=== PATIENT | male | born 1930 | race Caucasian/White ===

== ENCOUNTER 2017-08-03 13:12 | Inpatient (IN) | payer OTHER, MEDICARE ==
[~2017-08-03] VITALS: Ht 188 cm; Wt 82.1 kg
[2017-08-03] VITALS (12 sets, daily range): BP systolic 70–114; BP diastolic 45–79; PULSE 84–124; TEMP 37.4–39.3; O2SAT 79–96; Ht 188 cm; Wt 82.1 kg
[~2017-08-03 13:12] MED LIST: CYAN10005 PO; FNTTP50 TD; FOLI800T PO; FRCT/ PO; FRS/40 PO; LVNIS120 SQ; MULT-190 PO; OXYC-88 PO; PRED-301 PO; VALA1TAB PO; WARF5TAB7 PO
--- NOTE | 2017-08-03 13:53 | EMERGENCY ROOM VISIT NOTE ---
History Report prepared by Ana: Marce Singh Under the Supervision of: Dr. Aneesh Pugh M.D. First contact with patient: 13:35 Chief Complaint: LETHARGIC Stated Complaint: LETHARGIC, WEAKNESS Nursing Triage Summary: pt reports chest pain started last night denies any n/v radiates to right arm up to back of neck. confusion History of Present Illness The patient is a 86 year old male with a past medical history of atrial fibrillation, CHF, CLL, DVT, dyslipidemia, hemolytic anemia, PE, and systolic dysfunction who presents to the ED with a cc of severe left sided chest pain beginning 4-6 weeks ago, noting it worsened today. Positive shortness of breath and history of blood clots. Negative history of heart attacks. The patient states that his pain does not radiate to other parts of his body. He notes the pain worsens with movement. The patient's states that he takes half a beta abel and water pills daily. Source of History: patient, family (patient's ) Onset: 4-6 weeks Position: chest (left) Symptom Intensity: severe Quality: other (chest pain) Timing: worsening Modifying Factors (Worsening): movement Associated Symptoms: + SOB Review of Systems See HPI for pertinent positives and negatives. A total of ten systems were reviewed and were otherwise negative. Past Medical & Surgical Medical Problems: (1) Atrial fibrillation (2) CHF due to valvular disease (3) CLL (chronic lymphocytic leukemia) (4) Cor pulmonale (5) DVT (deep venous thrombosis) (6) Dyslipidemia (7) Hemolytic anemia (8) Post herpetic neuralgia (9) Pulmonary embolism (10) Systolic dysfunction Surgical Problems: (1) H/O splenectomy (2) History of cholecystectomy (3) History of dental surgery Family History FHx: leukemia Social History Smoking Status: Never Smoker Marital Status: Housing Status: lives with family Occupation Status: retired Current/Historical Medications Scheduled Cholecalciferol (Vitamin D 400 Iu), 400 INTER.UNIT PO DAILY Cyanocobalamin (Vitamin B-12), 1,000 MCG PO DAILY Fentanyl (Duragesic), 50 MCG TD [id number] Fish Oil ([place]-3), 1 CAP PO DAILY Fluticasone Propionate (Nasal) (Flonase Allergy Relief), 2 SPRAYS NA DAILY Folic Acid (Folic Acid), 1 TAB PO DAILY Gabapentin (Neurontin), 100 MG PO TID Lidocaine (Lidoderm Patch 5%), 1 PATCH TOP DAILY Lisinopril (Zestril), 2.5 MG PO DAILY Metolazone (Zaroxolyn), 2.5 MG PO PRN Metoprolol Succinate (Toprol Xl), 12.5 MG PO DAILY Ocuvite Preservision (Ocuvite Preservision), 1 TAB PO DAILY Oseltamivir (Tamiflu), 75 MG PO BID Prednisone (Prednisone), 5 MG PO DAILY Spironolactone (Aldactone), 12.5 MG PO DAILY Torsemide (Demadex), 40 MG PO BID Valacyclovir Hcl (Valtrex), 500 MG PO DAILY Warfarin Sod (Jantoven), 2.5 MG PO DAILY Scheduled PRN Acetamin/Butalbital/Caffeine (Fioricet), 1-2 TAB PO Q4H PRN for Pain Capsaicin (Capzasin), for Itching Chlorzoxazone (Parafon Forte Dsc), 500 MG PO TID PRN for Muscle Spasms Oxycodone/Acetaminophen 10MG/325MG (Oxycodone/Acetaminophen 10MG/325MG), 2 TAB PO Q6H PRN for Pain Triamcinolone Acet (Triamcinolone Acetonide), 1 APPLN TOP BID PRN for Affected Skin Folds Allergies Coded Allergies: No Known Allergies (Unverified , 08/03/17) Physical Exam Vital Signs Date Time Temp Pulse Resp B/P (MAP) Pulse Ox O2 Delivery O2 Flow Rate FiO2 08/03/17 15:11 102 22 110/65 98 Room Air 08/03/17 14:40 101 22 118/65 100 Nasal Cannula 2.0 08/03/17 14:20 109 20 121/79 90 Room Air 08/03/17 13:41 111 08/03/17 13:27 36.4 139 20 127/69 95 Room Air Physical Exam GENERAL: Awake, alert, uncomfortable-appearing, NAD HENT: Normocephalic, atraumatic. EYES: Normal conjunctiva. Sclera non-icteric. NECK: Supple. No nuchal rigidity. FROM. RESPIRATORY: CTAB, no rhonchi, wheezing, crackles CARDIAC: Tachycardic rate, irregularly irregular rhythm, no MRG ABDOMEN: Soft, NTND, BS+ MSK: No chest wall TTP, no LE edema NEURO: GCS 15, CN 2-12 intact, moves all 4s on command SKIN: No rash or jaundice noted. Medical Decision & Procedures ER Provider Diagnostic Interpretation: Radiology results as stated below per my review and radiologist interpretation: CHEST ONE VIEW PORTABLE CLINICAL HISTORY: weakness dyspnea COMPARISON STUDY: 09/26/2015 FINDINGS: Slightly progressive cardiomegaly compared to the prior exam. Increase in prominence of pulmonary vasculature. Baseline chronic interstitial prominence. No focal infiltrative change. Old fracture right proximal humerus unchanged from the prior exam. IMPRESSION: Moderate cardiomegaly with findings of early congestive failure. This is superimposed upon chronic changes described above. The above report was generated using voice recognition software. It may contain grammatical, syntax or spelling errors. Electronically signed by: Tavon Menard M.D. 08/03/2017 1:59 PM Dictated Date/Time: 08/03/2017 1:57 PM Laboratory Results Test 08/03/17 13:45 08/03/17 14:16 Immature Granulocyte % (Auto) 0.7 % White Blood Count 19.24 K/uL (4.8-10.8) Red Blood Count 3.90 M/uL (4.7-6.1) Hemoglobin 12.3 g/dL (14.0-18.0) Hematocrit 39.3 % (42-52) Mean Corpuscular Volume 100.8 fL (80-100) Mean Corpuscular Hemoglobin 31.5 pg (25-34) Mean Corpuscular Hemoglobin Concent 31.3 g/dl (32-36) Platelet Count 338 K/uL (130-400) Mean Platelet Volume 9.3 fL (7.4-10.4) Neutrophils (%) (Auto) 66.7 % Lymphocytes (%) (Auto) 25.4 % Monocytes (%) (Auto) 6.9 % Eosinophils (%) (Auto) 0.0 % Basophils (%) (Auto) 0.3 % Neutrophils # (Auto) 12.85 K/uL (1.4-6.5) Lymphocytes # (Auto) 4.89 K/uL (1.2-3.4) Monocytes # (Auto) 1.32 K/uL (0.11-0.59) Eosinophils # (Auto) 0.00 K/uL (0-0.5) Basophils # (Auto) 0.05 K/uL (0-0.2) Immature Granulocyte # (Auto) 0.13 K/uL (0.00-0.02) Phosphorus Level 4.0 mg/dl (2.5-4.9) Total Bilirubin 1.3 mg/dl (0.2-1) Aspartate Amino Transf (AST/SGOT) 25 U/L (15-37) Alanine Aminotransferase (ALT/SGPT) 22 U/L (12-78) Alkaline Phosphatase 86 U/L (45-117) Total Creatine Kinase 41 U/L (39-308) Pro-B-Type Natriuretic Peptide 6773 pg/ml (0-1800) Total Protein 7.1 gm/dl (6.4-8.2) Albumin 4.2 gm/dl (3.4-5.0) Globulin 2.9 gm/dl (2.5-4.0) Albumin/Globulin Ratio 1.4 (0.9-2) Thyroid Stimulating Hormone (TSH) 0.964 uIu/ml (0.300-4.500) Bedside Troponin I 0.100 ng/ml (0-0.045) Date/Time Source Procedure Growth Status 08/03/17 00:00 Nasal MRSA DNA Surveillance Screen - Final Specimen Negative for MRSA by DNA Probe Complete Laboratory results reviewed by me Medications Administered Medications (Trade) Dose Ordered Sig/Pb Route Start Time Stop Time Status Last Admin Dose Admin Aspirin (Aspirin Chew) 324 mg NOW STAT PO 08/03/17 13:55 08/03/17 13:57 DC 08/03/17 14:14 324 MG Fentanyl Citrate (Fentanyl Inj) 50 mcg NOW ONCE IV 08/03/17 14:00 08/03/17 14:01 DC 08/03/17 14:15 50 MCG Nitroglycerin (Nitrostat Tab) 0.4 mg PRN PRN SL 08/03/17 14:00 08/03/17 16:43 DC 08/03/17 15:10 0.4 MG ECG Indication: chest pain (left) Rate (beats per minute): 102 Rhythm: atrial fibrillation (with RVR) Findings: other (normal QRS and QTC, elevation in AVR and V1, difused latera and high lateral depressions) ED Course 1346: The patient was evaluated in room C9. A complete history and physical exam was performed. 1356: Discussed the patient's case with Dr. Estrella [facility] [place], who suggested there is no need for immediate heart alert, just need to make the patient pain free. 1455: Discussed the patient's case with Cynthia Douglas. The patient will be evaluated for further treatment and disposition. Medical Decision The patient is a 86 year old male with a past medical history of atrial fibrillation, CHF, CLL, DVT, dyslipidemia, hemolytic anemia, PE, and systolic dysfunction who presents to the ED with a cc of severe left sided chest pain beginning 4-6 weeks ago, noting it worsened today. Differential diagnosis: Etiologies such as cardiac ischemia, aortic dissection, pulmonary embolism, pneumonia, pneumothorax, musculoskeletal, infections, pericarditis, myocarditis , esophageal rupture, gastrointestinal, as well as others were entertained. Patient was seen and evaluated the bedside. Patient does have a complicated cardiac history. Patient has had noted worsening left-sided chest pain for 6 weeks. It is worse with exertion. Patient does have some associated shortness of breath. Patient is a poor historian and unable to provide a lot of descriptive features. Patient's EKG was concerning as he does have elevations in aVR as well as V1 along with lateral ST depressions. Upon seeing the patient 's EKG and his concerning chest pain story, he was not made a heart alert but I did talk to the coiler immediately who then reviewed the EKG and came to see the patient. Furthermore, the coiler Dr. Estrella did speak with general cardiology Dr. Diaz who also came to evaluate the patient. Had been decided that given the patient's complex medical problems he may not be suitable candidate for catheterization at this time; however, ACS protocol was initiated. Patient was given full dose aspirin as well as some fentanyl and nitroglycerin. Heparin was ordered along w/ statin. This only helped mildly with some of his pain. A repeat EKG did show maybe mild improvement of his ST segment changes. Of note patient did have mild leukocytosis C does have a history of CLL. Patient does have an elevated troponin and does have some noted CK D. Given the patient's complex medical history and after discussion with cardiology and interventional cardiology I did discuss the patient with both the hospitalist and copy manager. The copy manager did come see the patient the patient was admitted to the ICU. Medication Reconcilliation Current Medication List: was personally reviewed by me Blood Pressure Screening Patient's blood pressure: Low blood pressure Blood pressure disposition: Referred to PCP (hospitalist) Consults Time Called: 1356 Consulting Physician: PENNY Juarez Returned Call: 1356 Discussed the patient's case with PENNY Juarez, who suggested there is no need for immediate heart alert, just need to make the patient pain free. Additional Consults: Time Called: 2000 Consulted Physician: Cynthia Douglas Returned Call: [phone] Additional Comments: Discussed the patient's case with Cynthia Douglas. The patient will be evaluated for further treatment and disposition. Impression Primary Impression: Myocardial infarction Additional Impressions: Non-STEMI (non-ST elevated myocardial infarction) Anemia Leukocytosis, unspecified CKD (chronic kidney disease) Critical Care I have personally spent greater than 40 minutes of critical care time in the direct management of this patient. This includes bedside care, interpretation of diagnostic studies, and testing, discussion with consultants, patient, and family members, and other required patient management activities. This 40 minutes is in excess of all separately billable procedures. Scribe Attestation The scribe's documentation has been prepared under my direction and personally reviewed by me in its entirety. I confirm that the note above accurately reflects all work, treatment, procedures, and medical decision making performed by me. Departure Information Dispostion Being Evaluated By Hospitalist Referrals Gunnar Polanco D.O. (PCP) Forms HOME CARE DOCUMENTATION FORM, IMPORTANT VISIT INFORMATION, WORK / SCHOOL INSTRUCTIONS Patient Instructions My [facility] Problem Qualifiers Primary Impression: Myocardial infarction Myocardial infarction ST status: non-ST elevation myocardial infarction Qualified Codes: I21.4 - Non-ST elevation (NSTEMI) myocardial infarction Additional Impressions: Anemia Anemia type: unspecified type Qualified Codes: D64.9 - Anemia, unspecified CKD (chronic kidney disease) Chronic kidney disease stage: unspecified stage Qualified Codes: N18.9 - Chronic kidney disease, unspecified
[2017-08-03] MEDS ORDERED: ASPIRIN 324 MG CHEW PO STA (13:55)
[2017-08-03] MEDS ORDERED: FENTANYL CITRATE INJ 50 MCG/1 ML 2 ML VIAL IV ONE (14:00)
--- NOTE | 2017-08-03 14:00 | DIAGNOSTIC IMAGING REPORT ---
CHEST ONE VIEW PORTABLE CLINICAL HISTORY: weakness dyspnea COMPARISON STUDY: 09/26/2015 FINDINGS: Slightly progressive cardiomegaly compared to the prior exam. Increase in prominence of pulmonary vasculature. Baseline chronic interstitial prominence. No focal infiltrative change. Old fracture right proximal humerus unchanged from the prior exam. IMPRESSION: Moderate cardiomegaly with findings of early congestive failure. This is superimposed upon chronic changes described above. The above report was generated using voice recognition software. It may contain grammatical, syntax or spelling errors. Electronically signed by: Tavon Menard M.D. 08/03/2017 1:59 PM Dictated Date/Time: 08/03/2017 1:57 PM
[2017-08-03 14:03] LABS: BASO % 0.3 %; BASO ABS # 0.05 K/uL (0-0.2); HEMATOCRIT 39.3 % (42-52); HEMOGLOBIN 12.3 g/dL (14.0-18.0); IG# 0.13 K/uL (0.00-0.02); LYMPH % 25.4 %; LYMPH ABS # 4.89 K/uL (1.2-3.4); MEAN CELL VOLUME 100.8 fL (80-100); MEAN CORPUSCULAR HEMOGLOBIN 31.5 pg (25-34); MEAN CORPUSCULAR HGB CONC 31.3 g/dl (32-36); MEAN PLATELET VOLUME 9.3 fL (7.4-10.4); MONO % 6.9 %; MONO ABS # 1.32 K/uL (0.11-0.59); NEUT % 66.7 %; NEUT ABS # 12.85 K/uL (1.4-6.5); PLATELET COUNT 338 K/uL (130-400); RED CELL DISTRIBUTION WIDTH CV 16.3 % (11.5-14.5); RED CELL DISTRIBUTION WIDTH SD 59.3 fL (36.4-46.3); WHITE BLOOD COUNT 19.24 K/uL (4.8-10.8)
[2017-08-03] MEDS ORDERED: METO2.5T PO (14:10)
[2017-08-03] MEDS ORDERED: VALA1TAB31 PO (14:10)
[2017-08-03] MEDS ORDERED: [UNRECOGNIZED DRUG - CODE] (14:10)
[2017-08-03] MEDS ORDERED: LISI-729 PO (14:10)
[2017-08-03] MEDS ORDERED: TORS20TA2 PO (14:10)
[2017-08-03] MEDS ORDERED: OMEG10007 PO (14:10)
[2017-08-03] MEDS ORDERED: SPIR25TA PO (14:10)
[2017-08-03] MEDS ORDERED: METO25TA3 PO (14:10)
[2017-08-03] MEDS ORDERED: GABA-112 PO (14:10)
[2017-08-03] MEDS: NITROGLYCERIN 0.4 MG SL PER TAB CHARGE SL PRN ×2 (14:14→15:10)
[2017-08-03 14:22] LABS: ALBUMIN 4.2 gm/dl (3.4-5.0); CALCIUM 8.6 mg/dl (8.5-10.1); CREATININE 2.07 mg/dl (0.60-1.40); POTASSIUM 4.1 mmol/L (3.5-5.1)
[2017-08-03 14:32] LABS: CKMB 1.4 ng/ml (0.5-3.6); TOTAL PROTEIN 7.1 gm/dl (6.4-8.2)
[2017-08-03 15:11] LABS: INR 1.7 (0.9-1.1); PTT PATIENT 37.5 SECONDS (21.0-31.0)
[2017-08-03] MEDS ORDERED: ICU PROTOCOL FOR HYPERGLYCEMIA PRN (15:30)
[2017-08-03] MEDS ORDERED: ONDANSETRON INJ 2 MG/ML 2 ML VIAL IV PRN (15:30)
[2017-08-03] MEDS ORDERED: HEPARIN 25000 UNIT/500 ML D5W ONE (15:47)
[2017-08-03] MEDS ORDERED: OSEL75CA12 PO (15:59)
[2017-08-03] MEDS ORDERED: CHLO1TAB70 PO (15:59)
[2017-08-03] MEDS ORDERED: CHOL400C7 PO (15:59)
[2017-08-03] MEDS ORDERED: NF656 TOP (15:59)
[2017-08-03] MEDS ORDERED: TRMO115 TOP (15:59)
[2017-08-03] MEDS ORDERED: FLUT0.15 (15:59)
[2017-08-03] MEDS ORDERED: MoRPHine SULFATE 2 MG/ML CARP IV ONE (16:00)
[2017-08-03] MEDS ORDERED: MoRPHine SULFATE 2 MG/ML CARP ONE (16:09)
[2017-08-03] MEDS ORDERED: HEPARIN 25,000 UNIT/500ML D5W 500 ML IV PRN (16:15)
--- NOTE | 2017-08-03 16:22 | CARDIOLOGY CONSULTATION ---
DATE OF CONSULTATION: 08/03/2017 DATE OF CONSULTATION: 08/03/2017 REASON FOR CONSULTATION: Chest pain. HISTORY OF PRESENT ILLNESS: The patient is an elderly 86-year-old male patient who is usually followed by Dr. Gurdeep Benoit through our cardiology clinic. He has had a history of previous pulmonary emboli and is on chronic Coumadin therapy. He has a history of severe pulmonary hypertension and cor pulmonale. 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 He has chronic atrial fibrillation. In the past, his estimated left ventricular ejection fraction is 40-45%. The estimated left ventricular ejection fraction; however, does not tell the full story. This patient has had chronic biventricular heart failure, lethargy, and dyspnea. He is on a p.r.n. dose of Zaroxolyn due to fluid retention. Several days ago, he had increased lethargy and he was taken to his primary care physician's office where he was diagnosed as having influenza. He was started on Tamiflu. He has become progressively less responsive and according to his has had some rigors. She brought him to the Emergency Department where an EKG was obtained and shows an acute inferior posterior wall myocardial infarction. Interventional cardiology was contacted and due to the patient's age, history of dementia and multiple medical problems including chronic lymphocytic leukemia and his above cardiac disease, it was decided not to take him to the cardiac catheterization lab at this time. Instead, he will be admitted to the ICU and given supportive care and treatment as appropriate. ALLERGIES: HYDROMORPHONE. PAST MEDICAL HISTORY: As outlined above, he has severe cardiac disease with mixed valvular heart disease including severe aortic regurgitation, severe mitral regurgitation, and moderate tricuspid regurgitation. He has right heart failure on the basis of pulmonary hypertension with the last echocardiogram suggesting his pulmonary artery pressure to be 82 mmHg. His pulmonary hypertension is most likely on the basis of his mixed valvular heart disease and previous history of multiple pulmonary emboli. He has a history of paroxysmal atrial fibrillation which is now chronic. He has been on chronic anticoagulation with Coumadin. He has been treated by Dr. Hurtado for chronic lymphocytic leukemia. He also carries a diagnosis of chronic kidney disease and dementia. SOCIAL HISTORY: He lives with his . FAMILY MEDICAL HISTORY: Noncontributory. REVIEW OF SYSTEMS: A 10-point review of systems is negative except for the history of chief complaint. PHYSICAL EXAMINATION: GENERAL: The patient is lethargic and not easily aroused. VITAL SIGNS: Blood pressure is 120/80, pulse is irregular at 110 beats per minute. He is afebrile. HEAD, EYES, EARS, NOSE, AND THROAT: He is normocephalic. Pupils are equal and reactive to light. Extraocular muscles are intact bilaterally. NECK: The neck veins are distended. Carotids have good upstrokes bilaterally without bruits. Thyroid is nonpalpable. RESPIRATORY: Breath sounds are equal bilaterally. CARDIOVASCULAR: Heart has an irregular rhythm. There is a holosystolic murmur at the apex of the heart which varies with respiration. Second diastolic murmur is heard anteriorly. PMI is diffuse. ABDOMEN: Soft, nontender without organomegaly. EXTREMITIES: Free of edema, digit clubbing, or cyanosis. NEUROLOGIC: Grossly intact. SKIN: Warm to touch. LYMPH NODES: Negative to palpation. IMPRESSION: 1. Acute posterolateral wall myocardial infarction. 2. Possible influenza. 3. Severe mixed valvular heart disease. 4. Chronic cor pulmonale due to severe pulmonary hypertension. 5. History of multiple pulmonary emboli. 6. Chronic lymphocytic leukemia. 7. Dementia. RECOMMENDATIONS: I agree with the interventionalist regarding not taking this patient to the cardiac catheterization lab emergently. He is very sick with multiple medical problems that need to be stabilized before he would undergo an emergent intervention. I think he should be admitted to the ICU. He has been on Coumadin, which I would stop and place him on IV heparin without a bolus. Fluid management will be a challenge due to his underlying heart disease and cor pulmonale. His overall prognosis is poor.
[2017-08-03] MEDS ORDERED: FENTANYL 50 MCG/HR TDSY TD SCH (16:45)
[2017-08-03 17:01] LABS: INFLUENZA A PCR Neg for Influ A (NEG); INFLUENZA B PCR Neg for Influ B (NEG)
[2017-08-03] MEDS ORDERED: NURSING VERBAL MED ORDER ONE (17:15)
--- NOTE | 2017-08-03 17:19 | Critical Care Consultation ---
Critical Care Consultation Date of Consultation: Aug 03, 2017. Attending Physician: Karthik Gutierrez M.D. Reason for Consultation: Inferior wall CA, for medical management. History of Present Illness This is a 86 year old male with multiple medical conditions was brought in to ER. He has had a history of previous pulmonary emboli and is on chronic Coumadin therapy. He has a history of severe pulmonary hypertension and cor pulmonale. 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 He has chronic atrial fibrillation. In the past, his estimated left ventricular ejection fraction is 40-45%. The estimated left ventricular ejection fraction; however, does not tell the full story. This patient has had chronic biventricular heart failure, lethargy, and dyspnea. He is on a p.r.n. dose of Zaroxolyn due to fluid retention. Several days ago, he had increased lethargy and he was taken to his primary care physician's office where he was diagnosed as having influenza. He was started on Tamiflu. He has become progressively less responsive and according to his has had some rigors. She brought him to the Emergency Department where an EKG was obtained and shows an acute inferior posterior wall myocardial infarction. Interventional cardiology was contacted and due to the patient's age, history of dementia and multiple medical problems including chronic lymphocytic leukemia and his above cardiac disease, it was decided not to take him to the cardiac catheterization lab at this time. Instead, he will be admitted to the ICU and given supportive care and treatment as appropriate. Medical management. The patient mainly has been C/O his rt arm and shoulder pain which he and attribute to be related to shingles and has been going on for ablest 5years and he is on multiple pain management. The patient is also on 5 mg of oral prednisone for hemolytic anemia, chronically. Past Medical/Surgical History As outlined above, he has severe cardiac disease with mixed valvular heart disease including severe aortic regurgitation, severe mitral regurgitation, and moderate tricuspid regurgitation. He has right heart failure on the basis of pulmonary hypertension with the last echocardiogram suggesting his pulmonary artery pressure to be 82 mmHg. His pulmonary hypertension is most likely on the basis of his mixed valvular heart disease and previous history of multiple pulmonary emboli. He has a history of paroxysmal atrial fibrillation which is now chronic. He has been on chronic anticoagulation with Coumadin. He has been treated by Dr. Hurtado for chronic lymphocytic leukemia. He also carries a diagnosis of chronic kidney disease and dementia. Family History FHx: leukemia Social History Smoking Status: Never Smoker Alcohol Use: none Drug Use: none Marital Status: Housing Status: lives with family Occupation Status: retired Allergies Coded Allergies: No Known Allergies (Unverified , 08/03/17) Home Medications Scheduled Cholecalciferol (Vitamin D 400 Iu), 400 INTER.UNIT PO DAILY Cyanocobalamin (Vitamin B-12), 1,000 MCG PO DAILY Fentanyl (Duragesic), 50 MCG TD CQ72HR Fish Oil ([place]-3), 1 CAP PO DAILY Fluticasone Propionate (Nasal) (Flonase Allergy Relief), 2 SPRAYS NA DAILY Folic Acid (Folic Acid), 1 TAB PO DAILY Gabapentin (Neurontin), 100 MG PO TID Lidocaine (Lidoderm Patch 5%), 1 PATCH TOP DAILY Lisinopril (Zestril), 2.5 MG PO DAILY Metolazone (Zaroxolyn), 2.5 MG PO PRN Metoprolol Succinate (Toprol Xl), 12.5 MG PO DAILY Ocuvite Preservision (Ocuvite Preservision), 1 TAB PO DAILY Oseltamivir (Tamiflu), 75 MG PO BID Prednisone (Prednisone), 5 MG PO DAILY Spironolactone (Aldactone), 12.5 MG PO DAILY Torsemide (Demadex), 40 MG PO BID Valacyclovir Hcl (Valtrex), 500 MG PO DAILY Warfarin Sod (Jantoven), 2.5 MG PO DAILY Scheduled PRN Acetamin/Butalbital/Caffeine (Fioricet), 1-2 TAB PO Q4H PRN for Pain Capsaicin (Capzasin), for Itching Chlorzoxazone (Parafon Forte Dsc), 500 MG PO TID PRN for Muscle Spasms Oxycodone/Acetaminophen 10MG/325MG (Oxycodone/Acetaminophen 10MG/325MG), 2 TAB PO Q6H PRN for Pain Triamcinolone Acet (Triamcinolone Acetonide), 1 APPLN TOP BID PRN for Affected Skin Folds Current Inpatient Medications Current Inpatient Medications Medications (Trade) Dose Ordered Sig/Pb Route Start Time Stop Time Status Last Admin Dose Admin Nitroglycerin (Nitrostat Tab) 0.4 mg PRN PRN SL 12/27/17 14:00 09/02/17 13:59 08/03/17 15:10 0.4 MG Acetaminophen (Tylenol Tab) 650 mg Q4H PRN PO 08/03/17 15:30 09/02/17 15:29 Ondansetron HCl (Zofran Inj) 4 mg Q6H PRN IV 08/03/17 15:30 09/02/17 15:29 Miscellaneous Information (Icu Protocol For Hyperglycemia) 1 ea PRN PRN N/A 08/03/17 15:30 08/05/17 15:29 Heparin Sodium/ Dextrose 500 ml @ 29 mls/hr [id number] PRN IV 08/03/17 16:15 09/02/17 16:14 Pantoprazole Sodium 40 mg/ Syringe 10 ml @ 5 mls/min DAILY@11 IV 08/04/17 11:00 09/03/17 10:59 Review of Systems Constitutional: + fever, + weakness, + fatigue Respiratory: + cough, + shortness of breath, + dyspnea on exertion Cardiovascular: + chest pain (more on the rt side and rt shoulder and radiating to rt arm.) Musculoskeletal: + joint pain (rt shoulder), + muscle pain (rt arm pain.) Neurologic: + weakness Endocrine: + fatigue Physical Exam Date Time Temp Pulse Resp B/P (MAP) Pulse Ox O2 Delivery O2 Flow Rate FiO2 08/03/17 16:06 106 20 115/67 98 08/03/17 15:11 102 22 110/65 98 Room Air 08/03/17 14:40 101 22 118/65 100 Nasal Cannula 2.0 08/03/17 14:20 109 20 121/79 90 Room Air 08/03/17 13:41 111 08/03/17 13:27 36.4 139 20 127/69 95 Room Air General Appearance: uncomfortable, in pain, moderate distress Eyes: PERRLA, sclerae normal, conjunctivae normal ENT: normal nasal exam, normal mouth exam, normal throat exam Neck: normal range of motion, trachea midline, no stridor, supple, no lymphadenopathy Respiratory: breath sounds normal, rales (bilaterally more so at the bases.), rhonchi, wheezing (scattered.) Cardiovasular: systolic murmur, other (tachycardia.) Abdomen: non tender, normal bowel sounds, no masses Genitourinary - Male: other (not performed.) Back: normal inspection, normal range of motion, no muscle spasm Upper Extremities: no edema, no deformity, normal ROM Lower Extremities: normal ROM, edema (bilaterally 2 +) Edema: Bilateral LE (2+) Pulses: radial (R) (2+), radial (L) (2+) Neuro: alert, oriented x 3, normal motor exam, normal sensation Psychiatric: normal affect Laboratory Results Last 24 Hours Test 08/03/17 13:45 08/03/17 14:16 08/03/17 16:00 White Blood Count 19.24 K/uL Red Blood Count 3.90 M/uL Hemoglobin 12.3 g/dL Hematocrit 39.3 % Mean Corpuscular Volume 100.8 fL Mean Corpuscular Hemoglobin 31.5 pg Mean Corpuscular Hemoglobin Concent 31.3 g/dl Platelet Count 338 K/uL Mean Platelet Volume 9.3 fL Neutrophils (%) (Auto) 66.7 % Lymphocytes (%) (Auto) 25.4 % Monocytes (%) (Auto) 6.9 % Eosinophils (%) (Auto) 0.0 % Basophils (%) (Auto) 0.3 % Neutrophils # (Auto) 12.85 K/uL Lymphocytes # (Auto) 4.89 K/uL Monocytes # (Auto) 1.32 K/uL Eosinophils # (Auto) 0.00 K/uL Basophils # (Auto) 0.05 K/uL RDW Standard Deviation 59.3 fL RDW Coefficient of Variation 16.3 % Immature Granulocyte % (Auto) 0.7 % Immature Granulocyte # (Auto) 0.13 K/uL Prothrombin Time 17.4 SECONDS Prothromb Time International Ratio 1.7 Activated Partial Thromboplast Time 37.5 SECONDS Partial Thromboplastin Ratio 1.4 Sodium Level 134 mmol/L Potassium Level 4.1 mmol/L Chloride Level 95 mmol/L Carbon Dioxide Level 26 mmol/L Anion Gap 13.0 mmol/L Blood Urea Nitrogen 72 mg/dl Creatinine 2.07 mg/dl Est Creatinine Clear Calc Drug Dose 29.6 ml/min Estimated GFR () 32.6 Estimated GFR (Non- 28.2 BUN/Creatinine Ratio 34.6 Random Glucose 181 mg/dl Calcium Level 8.6 mg/dl Phosphorus Level 4.0 mg/dl Magnesium Level 2.5 mg/dl Total Bilirubin 1.3 mg/dl Aspartate Amino Transf (AST/SGOT) 25 U/L Alanine Aminotransferase (ALT/SGPT) 22 U/L Alkaline Phosphatase 86 U/L Total Creatine Kinase 41 U/L Creatine Kinase MB 1.4 ng/ml Creatine Kinase MB Ratio 3.4 Troponin I 0.116 ng/ml Pro-B-Type Natriuretic Peptide 6773 pg/ml Total Protein 7.1 gm/dl Albumin 4.2 gm/dl Globulin 2.9 gm/dl Albumin/Globulin Ratio 1.4 Thyroid Stimulating Hormone (TSH) 0.964 uIu/ml Bedside Troponin I 0.100 ng/ml Diagnostic Results CXR: FINDINGS: Slightly progressive cardiomegaly compared to the prior exam. Increase in prominence of pulmonary vasculature. Baseline chronic interstitial prominence. No focal infiltrative change. Old fracture right proximal humerus unchanged from the prior exam. IMPRESSION: Moderate cardiomegaly with findings of early congestive failure. This is superimposed upon chronic changes described above. Assessment & Plan 1. Acute posterolateral wall myocardial infarction. Cardiology and an interventional cardiology were consulted and both of them are in agreement not to have any intervention at this time and medical management with IV heparin/ Stop Coumadin. Also Diuretics as prescribed and beta abel and also aspirin. We will follow with the cardiology. 2. Possible influenza. the patient has been exposed to a patient with influenza. was on Tamiflu. Influenza test were done, still pending. 3. Severe mixed valvular heart disease. Currently he is under the care of the lunch truck operator. repeat ECHO will be done. 4. Chronic cor pulmonale due to severe pulmonary hypertension. The patient is not on any home O2. Currently he is on therapy including diuretice from the cardiology. Repeat ECHO is pending. 5. History of multiple pulmonary emboli. The patient has been on Coumadin, which was stopped and was started on IV Heparin. 6. Chronic lymphocytic leukemia. The patient and were told, currently is not on any therapy for that. 6. Chronic Hemolytic anemia. The patient has been on oral prednisone 5 mg daily and that will be resumed. 7. 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 The patient is on multiple pain medications which will be reviewed and treated accordingly. 8. Chronic Renal failure. The patient has worsening of his renal function, which could be also related to his current problems and may be dehydrated due to current illness. Fluids will be very difficult because of CHF/congestion. 7. Dementia. D/W family by the bed side and answered all the questions. The patient is full code. DVT prophylaxis and is on IV heparin. D/W other medical care provider. Spent greater than 55 minutes of critical care time.
--- NOTE | 2017-08-03 18:27 | History and Physical ---
History & Physical Date & Time of Service: Aug 03, 2017 ~ 15:00 Chief Complaint: Chest Pain, Altered Mental Status Primary Care Physician: Gunnar Polanco D.O. History of Present Illness 86 year old male who presents to the ED with chest pain and altered mental status. History is currently limited from patient so history is obtained from who is at the bedside. She reports that she has noticed a steady decline in her over the past couple of weeks. He has been more confused and more lethargic. Patient was seen in the PCPs office yesterday for evaluation of fever and confusion. It was suspected he had the flu so he was started on Tamiflu. His reports today that the lethargy was much worse and that he was also complaining of chest pain. No other symptoms are reported. 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 In the ED, patient's EKG is concerning for acute anterolateral MD. Patient was evaluated at the bedside by interventional cardiology who felt as though patient would not be a good candidate for a cardiac cath given his co-morbid conditions. Patient will be admitted to ICU for further management. Past Medical/Surgical History Medical Problems: (1) Atrial fibrillation Status: Chronic (2) CHF due to valvular disease Status: Chronic (3) CLL (chronic lymphocytic leukemia) Status: Chronic (4) Cor pulmonale Permanent Comment: echo 12/2016 - severe AR, severe MR, moderate TR, EF 40-45% Status: Chronic (5) DVT (deep venous thrombosis) Status: Chronic (6) Dyslipidemia Status: Chronic (7) Hemolytic anemia Status: Chronic (8) Post herpetic neuralgia Status: Chronic (9) Pulmonary embolism Status: Chronic (10) Systolic dysfunction Status: Chronic Surgical Problems: (1) H/O splenectomy Status: Chronic (2) History of cholecystectomy Status: Chronic (3) History of dental surgery Status: Chronic Family History non contributory due to patient's advanced age Social History Smoking Status: Former Smoker Alcohol Use: none Marital Status: Housing status: lives with family Immunizations History of Influenza Vaccine: Yes Influenza Vaccine Date: May 03, 2017 History of Tetanus Vaccine?: Yes Tetanus Immunization Date: Jun 02, 2012 History of Pneumococcal: Yes Pneumococcal Date: December 31, 2015 History of Hepatitis B Vaccine: Yes Hepatitis Immunization Date: Nov 24, 2004 Multi-Drug Resistant Organisms History of MDRO: No Allergies Coded Allergies: No Known Allergies (Unverified , 08/03/17) Home Medications Scheduled Cholecalciferol (Vitamin D 400 Iu), 400 INTER.UNIT PO DAILY Cyanocobalamin (Vitamin B-12), 1,000 MCG PO DAILY Fentanyl (Duragesic), 50 MCG TD [id number] Fish Oil ([place]-3), 1 CAP PO DAILY Fluticasone Propionate (Nasal) (Flonase Allergy Relief), 2 SPRAYS NA DAILY Folic Acid (Folic Acid), 1 TAB PO DAILY Gabapentin (Neurontin), 100 MG PO TID Lidocaine (Lidoderm Patch 5%), 1 PATCH TOP DAILY Lisinopril (Zestril), 2.5 MG PO DAILY Metolazone (Zaroxolyn), 2.5 MG PO PRN Metoprolol Succinate (Toprol Xl), 12.5 MG PO DAILY Ocuvite Preservision (Ocuvite Preservision), 1 TAB PO DAILY Oseltamivir (Tamiflu), 75 MG PO BID Prednisone (Prednisone), 5 MG PO DAILY Spironolactone (Aldactone), 12.5 MG PO DAILY Torsemide (Demadex), 40 MG PO BID Valacyclovir Hcl (Valtrex), 500 MG PO DAILY Warfarin Sod (Jantoven), 2.5 MG PO DAILY Scheduled PRN Acetamin/Butalbital/Caffeine (Fioricet), 1-2 TAB PO Q4H PRN for Pain Capsaicin (Capzasin), for Itching Chlorzoxazone (Parafon Forte Dsc), 500 MG PO TID PRN for Muscle Spasms Oxycodone/Acetaminophen 10MG/325MG (Oxycodone/Acetaminophen 10MG/325MG), 2 TAB PO Q6H PRN for Pain Triamcinolone Acet (Triamcinolone Acetonide), 1 APPLN TOP BID PRN for Affected Skin Folds Review of Systems ROS per HPI, all other systems reviewed and negative Physical Exam Vital Signs Date Time Temp Pulse Resp B/P (MAP) Pulse Ox O2 Delivery O2 Flow Rate FiO2 08/03/17 16:06 106 20 115/67 98 08/03/17 15:11 102 22 110/65 98 Room Air 08/03/17 14:40 101 22 118/65 100 Nasal Cannula 2.0 08/03/17 14:20 109 20 121/79 90 Room Air 08/03/17 13:41 111 08/03/17 13:27 36.4 139 20 127/69 95 Room Air General Appearance: WD/WN, + mild distress Head: normocephalic, atraumatic Eyes: normal inspection, EOMI, sclerae normal ENT: + pertinent finding (YUHAAVIATAM, mucous membranes dry) Neck: supple, no JVD, trachea midline Respiratory/Chest: no respiratory distress, + decreased breath sounds Cardiovascular: normal peripheral pulses, + irregularly irregular, + pertinent finding (+2 edema BLLE) Abdomen/GI: normal bowel sounds, non tender, soft, no organomegaly Extremities/Musculoskelatal: normal inspection, no calf tenderness Neurologic/Psych: no motor/sensory deficits, + disoriented (to time; forgetgul , poor insight), + pertinent finding (arouses to verbal stimuli however falls back to sleep quickly ) Skin: normal color, warm/dry Diagnostics Laboratory Results Results Past 24 Hours Test 08/03/17 13:45 08/03/17 14:16 08/03/17 16:00 08/03/17 17:00 Range/Units White Blood Count 19.24 4.8-10.8 K/uL Red Blood Count 3.90 4.7-6.1 M/uL Hemoglobin 12.3 14.0-18.0 g/dL Hematocrit 39.3 42-52 % Mean Corpuscular Volume 100.8 80-100 fL Mean Corpuscular Hemoglobin 31.5 25-34 pg Mean Corpuscular Hemoglobin Concent 31.3 32-36 g/dl Platelet Count 338 130-400 K/uL Mean Platelet Volume 9.3 7.4-10.4 fL Neutrophils (%) (Auto) 66.7 % Lymphocytes (%) (Auto) 25.4 % Monocytes (%) (Auto) 6.9 % Eosinophils (%) (Auto) 0.0 % Basophils (%) (Auto) 0.3 % Neutrophils # (Auto) 12.85 1.4-6.5 K/uL Lymphocytes # (Auto) 4.89 1.2-3.4 K/uL Monocytes # (Auto) 1.32 0.11-0.59 K/uL Eosinophils # (Auto) 0.00 0-0.5 K/uL Basophils # (Auto) 0.05 0-0.2 K/uL RDW Standard Deviation 59.3 36.4-46.3 fL RDW Coefficient of Variation 16.3 11.5-14.5 % Immature Granulocyte % (Auto) 0.7 % Immature Granulocyte # (Auto) 0.13 0.00-0.02 K/uL Prothrombin Time 17.4 9.0-12.0 SECONDS Prothromb Time International Ratio 1.7 0.9-1.1 Activated Partial Thromboplast Time 37.5 21.0-31.0 SECONDS Partial Thromboplastin Ratio 1.4 Sodium Level 134 136-145 mmol/L Potassium Level 4.1 3.5-5.1 mmol/L Chloride Level 95 98-107 mmol/L Carbon Dioxide Level 26 21-32 mmol/L Anion Gap 13.0 3-11 mmol/L Blood Urea Nitrogen 72 7-18 mg/dl Creatinine 2.07 0.60-1.40 mg/dl Est Creatinine Clear Calc Drug Dose 29.6 ml/min Estimated GFR () 32.6 Estimated GFR (Non- 28.2 BUN/Creatinine Ratio 34.6 10-20 Random Glucose 181 70-99 mg/dl Calcium Level 8.6 8.5-10.1 mg/dl Phosphorus Level 4.0 2.5-4.9 mg/dl Magnesium Level 2.5 1.8-2.4 mg/dl Total Bilirubin 1.3 0.2-1 mg/dl Aspartate Amino Transf (AST/SGOT) 25 15-37 U/L Alanine Aminotransferase (ALT/SGPT) 22 12-78 U/L Alkaline Phosphatase 86 45-117 U/L Total Creatine Kinase 41 39-308 U/L Creatine Kinase MB 1.4 0.5-3.6 ng/ml Creatine Kinase MB Ratio 3.4 0-3.0 Troponin I 0.116 0-0.045 ng/ml Pro-B-Type Natriuretic Peptide 6773 0-1800 pg/ml Total Protein 7.1 6.4-8.2 gm/dl Albumin 4.2 3.4-5.0 gm/dl Globulin 2.9 2.5-4.0 gm/dl Albumin/Globulin Ratio 1.4 0.9-2 Thyroid Stimulating Hormone (TSH) 0.964 0.300-4.500 uIu/ml Bedside Troponin I 0.100 0-0.045 ng/ml Influenza Type A (RT-PCR) Neg for Influ A NEG Influenza Type B (RT-PCR) Neg for Influ B NEG Urine Color YELLOW Urine Appearance CLEAR CLEAR Urine pH 5.0 4.5-7.5 Urine Specific [place] 1.016 1.000-1.030 Urine Protein NEG NEG Urine Glucose (UA) NEG NEG Urine Ketones NEG NEG Urine Occult Blood NEG NEG Urine Nitrite NEG NEG Urine Bilirubin NEG NEG Urine Urobilinogen NEG NEG Urine Leukocyte Esterase NEG NEG Microbiology Results 08/03/17 MRSA DNA Surveillance Screen, Received Pending 08/03/17 Urine Culture, Received Pending Diagnostic Radiology CXR IMPRESSION: Moderate cardiomegaly with findings of early congestive failure. This is superimposed upon chronic changes described above. Impression Assessment and Plan ACS HX COR PULMONALE, SYSTOLIC DYSFUNCTION - admit to ICU - patient presenting with increasing confusion, lethargy, and chest pain; in the ED, patient found to have EKG changes concerning for acute anterolateral MD - was evaluated in the ED by Dr. Estrella who felt the patient was not a cardiac cath candidate given his co-morbid conditions - medical management for now - will start heparin gtt, ASA, and statin; continue metoprolol from home - if BP allows, consider nitro gtt - resting echo - patient also with multivalvular disease and EF 40-45%; given AMI, will continue with only torsemide at a lower dose for now; holding spironolactone and metolazone AMI ON CKD STAGE III - likely pre renal due to acute illness - baseline creat ~ 1.5 - up to 2.0 today - diuretics as above - monitor renal function REPORTED FEVER - patient with febrile illness the past two days - was started on Tamiflu by PCP yesterday however negative flu PCR today - WBC 19K however patient with history of CLL; currently afebrile - U/A and CXR without infectious findings - will check blood cultures - noted immunocompromised state from splenectomy ATRIAL FIBRILLATION - rate controlled on metoprolol, will continue - INR 1.7 - holding Coumadin and placing on Coumadin as above HX PE/DVT - INR 1.7 - holding Coumadin and placing on Coumadin as above CHRONIC RIGHT ARM PAIN, POST HERPETIC NEURALGIA - continue Fentanyl patch, prednisone, and Valtrex HX CLL - baseline WBC 16-20K DVT PROPHYLAXIS - on heparin gtt CODE STATUS - Patient is a full code as per my discussion with patient's who is at the bedside. DISPO - In my clinical judgment this beneficiary meets acute admission criteria, established by [facility], that includes being hospitalized through two midnights. Attending Addendum: The patient was seen in ICU and detailed history was taken from the and also from the patient Recent flu like symptoms with weakness and confusion Was given Tamiflu empirically from the clinic yesterday without any improvement Has significant Medical History including CHF secondary to Systolic and Severe Valvular Heart disease and severe Pulmonary HTN Complained some pain in Chest/left arm and noted to have Inferolateral MD in EKG O/E Admits to have ongoing Pain and SOB Hemodynamically stable Chest-decreased breath sound with bibasilar crackles Heart-irregular with precordial murmurs Abdomen-benign Extremities-bilateral 1+ edema TOP CUTTER-AA Moving all limbs equally Labs and Imaging studies reviewed Not a candidate for any acute intervention with ongoing ACS Appreciate cardiology and Inspector Weights And Measures input Medical therapy continued Discussed with the in detailed -answered all of her question.Awaiting arrival of daughters to consider reconsider resuscitation status. Dr Lily Hidalgo VTE Prophylaxis VTE Risk Assessment Done? Y/N: Yes Risk Level: Moderate
[2017-08-03 19:39] LABS: CKMB 15.5 ng/ml (0.5-3.6)
[2017-08-03] MEDS: GABAPENTIN 100 MG CAP PO SCH ×2 (20:18→20:30)
[2017-08-03] MEDS: ATORVASTATIN 40 MG TAB PO SCH ×2 (20:18→20:30)
[2017-08-03] MEDS: ACETAMINOPHEN 325 MG TAB PO PRN (20:19)
[2017-08-03] MEDS ORDERED: PIPERACILL/TAZOBAC IV 4.5 GM in DEXTROSE 5% 100ML 100 ML IV STA (20:56)
[2017-08-03] MEDS: ACETAMINOPHEN IV 650 MG in EMPTY BAG 0 ML IV PRN (21:13)
[2017-08-03] MEDS ORDERED: LEVOFLOXACIN CONSULT ACTIVE PRN (21:16)
[2017-08-03] MEDS ORDERED: LEVOFLOXACIN / D5W 750 MG in PREMIXED IN D5W 150 ML IV STA (21:18)
[2017-08-03] MEDS ORDERED: PIPERACILL/TAZOBAC CONSULT ACTIVE PRN (21:30)
[2017-08-03] MEDS ORDERED: PIPERACILL/TAZOBAC IV 4.5 GM in DEXTROSE 5% 50ML 50 ML IV ONE (22:00)
[2017-08-03] MEDS ORDERED: VANCOMYCIN CONSULT ACTIVE PRN (23:00)
[2017-08-03 23:03] LABS: PTT PATIENT 164.1 SECONDS (21.0-31.0)
[2017-08-03] MEDS ORDERED: HYDROCORTISONE IV 100 MG in SYRINGE 0 ML IV STA (23:22)
[2017-08-03] MEDS ORDERED: SODIUM CHLORIDE 0.9% IV ONE (23:30)
[2017-08-03] MEDS ORDERED: VANCOMYCIN IV ONE (23:30)
[2017-08-03] MEDS ORDERED: LEVALBUTEROL 1.25MG/0.5ML NEB INH PRN (23:45)
[2017-08-03] MEDS ORDERED: LEVALBUTEROL/IPRATROPIUM NEB INH SCH (23:45)
[2017-08-03] MEDS ORDERED: IPRATROPIUM BROMIDE NEB SOLN 0.02% 2.5 ML VIAL INH PRN (23:45)
[2017-08-03 23:58] LABS: PTT PATIENT 212.4 SECONDS (21.0-31.0)
[2017-08-04] VITALS (113 sets, daily range): BP systolic 63–118; BP diastolic 36–87; PULSE 73–148; TEMP 36.7–37.1; O2SAT 86–99
[2017-08-04] MEDS ORDERED: HYDROCORTISONE IV 100 MG in SYRINGE 0 ML IV SCH
[2017-08-04 00:24] LABS: HEMATOCRIT 31.3 % (42-52); HEMOGLOBIN 10.1 g/dL (14.0-18.0)
[2017-08-04] MEDS ORDERED: SODIUM CHLORIDE 0.9% 250ML 250 ML IV STA ×2 (00:27→00:59)
[2017-08-04 00:54] LABS: PTT PATIENT 141.7 SECONDS (21.0-31.0)
[2017-08-04 01:17] LABS: CKMB 34.4 ng/ml (0.5-3.6)
[2017-08-04 01:42] LABS: PTT PATIENT 122.1 SECONDS (21.0-31.0)
[2017-08-04] MEDS ORDERED: NOREPINEPHRINE BIT INJ 8 MG in DEXTROSE 5% 500ML 500 ML IV PRN (02:55)
[2017-08-04] MEDS ORDERED: LEVALBUTEROL/IPRATROPIUM NEB INH SCH (03:00)
[2017-08-04] MEDS: IPRATROPIUM BROMIDE NEB SOLN 0.02% 2.5 ML VIAL INH SCH ×4 (03:04→18:51)
[2017-08-04] MEDS: LEVALBUTEROL 1.25MG/0.5ML NEB INH SCH ×4 (03:04→18:51)
[2017-08-04 03:17] LABS: PTT PATIENT 68.6 SECONDS (21.0-31.0)
[2017-08-04] MEDS ORDERED: LIDOCAINE/EPINEPHRINE 1% 20 ML VIAL INFIL ONE ×2 (04:30→22:30)
[2017-08-04] MEDS ORDERED: NURSING VERBAL MED ORDER ONE (05:15)
[2017-08-04 05:52] LABS: HEMATOCRIT 33.9 % (42-52); HEMOGLOBIN 10.4 g/dL (14.0-18.0); MEAN CELL VOLUME 99.1 fL (80-100); MEAN CORPUSCULAR HEMOGLOBIN 30.4 pg (25-34); MEAN CORPUSCULAR HGB CONC 30.7 g/dl (32-36); MEAN PLATELET VOLUME 9.4 fL (7.4-10.4); PLATELET COUNT 285 K/uL (130-400); RED CELL DISTRIBUTION WIDTH CV 16.3 % (11.5-14.5); RED CELL DISTRIBUTION WIDTH SD 58.9 fL (36.4-46.3); WHITE BLOOD COUNT 24.46 K/uL (4.8-10.8)
[2017-08-04 06:01] LABS: INR 1.9 (0.9-1.1)
[2017-08-04] MEDS: PIPERACILL/TAZOBAC IV 4.5 GM in DEXTROSE 5% 50ML 50 ML IV SCH ×3 (06:18→20:34)
[2017-08-04] MEDS: HYDROCORTISONE IV 50 MG in SYRINGE 0 ML IV SCH ×2 (06:18→10:06)
[2017-08-04 06:25] LABS: CALCIUM 7.8 mg/dl (8.5-10.1); CREATININE 2.17 mg/dl (0.60-1.40); POTASSIUM 4.2 mmol/L (3.5-5.1)
--- NOTE | 2017-08-04 06:48 | Procedure Note ---
Procedure Note Procedure Date Aug 04, 2017. Central Line Procedure time out: side/site verified, patient ID confirmed, sterile procedure used Consent obtained: written, emergent consent implied Time of procedure: 02:30 Performed by: physician ball point splitter Indications: poor venous access, central drug admin., long-term access Prep: chlorhexadine prep, sterile drape, sterile procedures used Anesthesia: lidocaine 1% without epi Volume anesthetic (ml's): 5 Central line lumen: triple Central line location: internal jugular (R) Additional details: percutaneous placement, ultrasound guidance, Selinger technique used, line sutured, good blood return CXR: appropriate position, no pneumothorax Complications: none Patient tolerated procedure: well Post-procedure vital signs: reviewed and stable Comments: Procedure: Central Line Placement Attending: Dr. Cheney APC: Dipesh Carballo PA-C Indication: Central Drug Administration, Poor Venous Access, Multiple Lab Draws Necessary, etc. Anesthesia: Lidocaine 1% Consent was obtained prior to performing the procedure. A time-out was completed verifying correct patient, procedure, site, positioning , and implans(s) or special equipment if applicable. Patients RIGHT Neck was cleansed and draped in the typical sterile fashion using Chloraprep. The Internal Jugular Vein and Carotid Artery were identified using ultrasound. The superficial tissue was anesthetized using 5.0 cc of 1% lidocaine without epinephrine under direct visualization with the ultrasound. After adequate anesthetization was achieved, the Internal Jugular vein was cannulated under direct ultrasound guidance using an introducer needle on a syringe. Good venous blood return was maintained prior to removal of syringe from introducer needle. Using Seldinger Technique, a guide wire was advanced through the introducer needle without resistance. The introducer needle was removed and ultrasound images were obtained of the guide wire within the Internal Jugular Vein and saved to the patients medical record. A small incision was made in penetrating fashion at the guide wire insertion site utilizing an 11 blade scalpel. The dilator was advanced to the vessel without resistance. The dilator was exchanged for the triple lumen catheter which was advanced into the vessel without resistance. The guide wire was removed intact from the catheter without issue. Claves were placed on each catheter tip with confirmation of good blood flow from each lumen. The catheter was placed at 18 cm and sutured in place. BioPatch was applied to the catheter and a sterile Tegaderm dressing was applied over the catheter with careful attention to sterility. Patient tolerated procedure well. No immediate complications were met. Post procedure x-ray was completed, placement was appropriate and no pneumothorax was noted. Images obtained are saved for permanent record Procedural Ultrasound Guidance: Procedure Date: 08/04/2017 Indication: Poor Access, Vasoactive Medication Administration Attending: Dr. Cheney APC: Dipesh Carballo PA-C Artery AND Vein visualized: YES Compressible Vein: YES Guidewire or Short Catheter seen in vein prior to dilation: YES Line confirmed in Vein with ultrasound: YES Images obtained are saved for permanent record
--- NOTE | 2017-08-04 06:51 | Procedure Note ---
Procedure Note Procedure Date Aug 04, 2017. Procedure Description Procedure Name: LEFT Radial A-Line Placement Procedure time out: side/site verified, patient ID confirmed, correct procedure Consent obtained: written Performed by: physician insole lip turner Indications: diagnostic, therapeutic Contraindications: none Description: Procedure: Arterial Line Placement Attending: Dr. Cheney APC: Dipesh Carballo PA-C Indication: Monitoring on Pressors Anesthesia: Lidocaine 1% Consent was signed and placed on the chart prior to procedure. Indication, risks , and benefits were explained at length.~ A time-out was completed verifying correct patient, procedure, site, positioning , and implant(s) or special equipment if applicable. Allens test was performed to ensure adequate perfusion. Patients LEFT wrist was prepped and draped in the usual sterile fashion. Ultrasound guidance was used to aid needle placement. A 20g Arrow arterial line was introduced into the LEFT Radial artery. I was unable to wire over the needle despite two location distally. The procedure was aborted. The patient tolerated the procedure well. Blood Loss: Minimal Complications: None Procedural Ultrasound Guidance: Procedure Date: 08/04/2017 Indication: Blood Pressure Monitoring, Vasoactive Medication Use Attending: Dr. Cheney APC: Dipesh Carballo PA-C Artery Identified: YES Line confirmed in Artery with ultrasound: YES Complications: NONE Patient tolerated procedure: WELL Complications: none Patient tolerated procedure: well Post-procedure vital signs: reviewed and stable
[2017-08-04] MEDS ORDERED: INSULIN IV INFUSION PROTOCOL STA (07:13)
[2017-08-04] MEDS ORDERED: MODERATE STRESS LEVEL ONE (07:15)
[2017-08-04] MEDS ORDERED: INSULIN PROTOCOL GOAL RANGE ONE (07:15)
[2017-08-04] MEDS ORDERED: ICU PROTOCOL FOR HYPERGLYCEMIA PRN (07:15)
[2017-08-04] MEDS ORDERED: PHARMACY GLYCEMIC MGMT CONSULT PRN (07:30)
--- NOTE | 2017-08-04 07:32 | DIAGNOSTIC IMAGING REPORT ---
CHEST ONE VIEW PORTABLE CLINICAL HISTORY: LINE PLACEMENT tube position COMPARISON STUDY: 08/03/2017 FINDINGS: Central catheter place in this. Vena cava. No evidence for pneumothorax. All remaining components of the study are similar. Moderate stable cardiomegaly. Potential slight progression of a left basilar parenchymal infiltrate. Unchanging prominence of pulmonary vasculature/mild congestive failure. Old/pre-existing fracture right humerus IMPRESSION: 1. Placement of a right internal jugular catheter to the superior vena cava. 2. No evidence pneumothorax. 3. Unchanging findings of mild congestive failure. 4. Potential superimposed and a developing parenchymal infiltrate/effusion left base. The above report was generated using voice recognition software. It may contain grammatical, syntax or spelling errors. Electronically signed by: Tavon Menard M.D. 08/04/2017 7:31 AM Dictated Date/Time: 08/04/2017 7:29 AM
--- NOTE | 2017-08-04 07:32 | Clinical Documentation Query ---
BRAD Singletary : CLINICAL DOCUMENTATION QUERY Patient is an 86 year old male admitted for evaluation and treatment of chest pain, increased confusion and lethargy. Reported fever/febrile illness, AMI, dehydration, with possible influenza in the setting of AMI and narcotic use. As appropriate, consider the confusion and lethargy as manifestations of encephalopathy associated with the aforementioned signs and symptoms. Thank you. In your clinical opinion is this patient being managed for: ( ) Metabolic encephalopathy ( ) Not Agree (x ) Other explanation of clinical findings (Please Explain) ( ) Unable to determine (Please Define) ( ) Need to Discuss Patient had a heart attack and then in shock. So not a metabolic problem The medical record reflects the following clinical findings, treatment, and risk factors. Clinical Indicators: Altered mental status in the setting of above Treatment: IVF, antibiotics, treatment of AMI, blood cultures Risk Factors: Age, possible infection, AMI, dehydration Please clarify and document your clinical opinion in the progress notes and discharge summary. Terms such as "probable", "suspected", "likely", "questionable", "possible", or "still to be ruled out" are acceptable. IF IN AGREEMENT, YOU MUST DOCUMENT ABOVE DIAGNOSTIC STATEMENT IN DAILY PROGRESS NOTES AND DISCHARGE SUMMARY. This document is not part of the patient's record. Thank You, Erik Edwards, WADE [phone]
[2017-08-04] MEDS ORDERED: NovoLIN R BOLUS FROM BAG IV ONE (08:00)
[2017-08-04] MEDS ORDERED: INSULIN ASPART 100 UNITS/ML 3 ML PEN SC SCH (08:00)
[2017-08-04] MEDS ORDERED: INSULIN REGULAR 250 UNITS in SODIUM CHLORIDE 0.9% 250ML 250 ML IV SCH (08:00)
[2017-08-04] MEDS: TORSEMIDE 20 MG TAB PO SCH (08:53)
[2017-08-04] MEDS: ASPIRIN 81 MG ECTAB PO SCH (08:53)
[2017-08-04] MEDS: ATORVASTATIN 40 MG TAB PO SCH (08:53)
[2017-08-04] MEDS: GABAPENTIN 100 MG CAP PO SCH (08:53)
[2017-08-04] MEDS: OMEGA-3 (PURIFIED FISH OIL) 1 GM CAP PO SCH (08:53)
[2017-08-04] MEDS: CEROVITE ADV FORMULA TAB PO SCH (08:53)
[2017-08-04] MEDS: METOPROLOL SUCC 25MG EXT REL TAB PO SCH (08:53)
[2017-08-04] MEDS: FoLIC ACID TAB 400 MCG TAB PO SCH (08:53)
[2017-08-04] MEDS: CYANOCOBALAMIN 500 MCG TAB (VIT B-12) PO SCH (08:54)
[2017-08-04] MEDS: CHOLECALCIFEROL 400 INTER.UNIT TAB PO SCH (08:54)
[2017-08-04] MEDS ORDERED: INSULIN ASPART 100 UNITS/ML 3 ML PEN SC ONE (09:00)
[2017-08-04] MEDS ORDERED: INSULIN GLARGINE SOLOSTAR 100 UNITS/ML 3 ML PEN SC ONE (09:00)
--- NOTE | 2017-08-04 10:00 | Pharmacy Progress Note ---
Pharmacy Abx Dose Short Note Date of Service Aug 04, 2017. Assessment & Plan Pharmacy is consulted for: * Glycemic management * Vancomycin, Zosyn and Levofloxacin dosing Assessment * 86 year old non-diabetic male admitted for ACS, cor pulmonale / pulm hypertension, and fever * No recent A1c results available * BSGs have ranged 179-190 since admission - these are fasting BSGs * Overnight the patient became more lethargic and hypotensive leading to IV fluid bolus admin, IV pressors (norepi) and IV hydrocortisone administration. * The initial plan was to place the patient on IV insulin infusion as norepi was still infusing and IV hydrocortisone was still ordered. However, per discussion on multidisciplinary rounds this AM the norepi was weaned down to 0.015mcg/kg/min and IV hydrocortisone will be discontinued. He also remains NPO. Given BSGs are currently only mildly elevated and stressors may be lessening, will initiate basal/bolus SQ regimen at this time based upon moderate stress and weight. * Patient currently with AMI. [facility] records reviewed. Baseline SCr ~1.3. SCr currently 2.17, U.O. 375mL thus far today. eCrCl ~28cc/min. 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 Influenza A/B Ag and MRSA screen both were negative * CXR: mild congestive failure, potential superimposed and a developing parenchymal infiltrate/effusion L base Plan Vancomycin * Loading dose of 2000mg (~24mg/kg) IV x 1 given last evening at 2323 * Estimated half-life in this patient likely > 24 hours but may be changing if renal fxn improving * Given uncertainty with renal elimination will obtain a random level ~24 hours after loading dose to determine if redosing required * Goal is to redose when level 15-20mcg/mL or anticipated to be within this range. * P'kinetic estimates: Vd 0.7L/kg; half-life ~24-26 hours * Random level has been ordered for midnight tonight * Might consider deescalation of ABX therapy in the near future as MRSA nasal swab was negative, greatly reducing the likelihood of MRSA pneumonia, plus Levofloxacin offers good coverage of drug resistant strep pn and MSSA, Zosyn also covers MSSA Zosyn * Initially started to 4.5gm IV extended-infusion Q 8 hrs as estCrCl > 20cc/ min. Will continue this dose for time being given critical illness. Levofloxacin * 750mg IV Q 48 hours indicated for pulm infxn with eCrCl 20-49cc/min Glycemic control * Lantus 20 units SQ x 1 this AM; reassess basal needs tomorrow AM * BSGs Q 4 hours and SQ coverage w/ Novolog * Goal range: 120 - 160mg/dL * Correction factor: 20mg/dL/unit * Carb ratio: 1 unit per 8 gm CHO consumed Pharmacy will continue to follow and will adjust dose/frequency as necessary. Thank you.
[2017-08-04] MEDS: LIDODERM (LIDOCAINE) PATCH 5% TD SCH (10:01)
[2017-08-04] MEDS ORDERED: PANTOprazole INJ 40 MG in SYRINGE 0 ML IV SCH (11:00)
[2017-08-04] MEDS: INSULIN ASPART 100 UNITS/ML 3 ML PEN SC SCH ×3 (12:00→20:00)
[2017-08-04 13:52] LABS: PTT PATIENT 234.8 SECONDS (21.0-31.0)
--- NOTE | 2017-08-04 14:34 | Critical Care Progress Note ---
Critical Care Progress Note Date of Service Aug 04, 2017. ICU Day ICU Day Number: [address] Cheney Subjective 86 year old male was admitted last night with possibility of pneumonia/sepsis and also respiratory failure and an acute SD. the patient was not a candidate for an intervention such as cardiac cath and was admitted for medical management with IV heparin. The patient during the night deteriorated further and was febrile and hypotensive and hypoxemic. received 1 litre of fluid bolus and also rt IJ central line. The patient was also started on BiPAP and oxygenation had improved. Was started on Levophed and broad spectrum IV antibiotics, such as cefepime/Levaquin and also Vancomycin and the BP has stablized. The patient has been on 5 mg of PO prednisone and he was started on Solumedrol. This afternoon, he is off the BiPAP and remains on NC O2 and is oxygenating well in low 90s and arousable. Family, daughters and made the patient Do Not Resuscitate and continue with other treatment. Objective General Appearance: Resting comfortably and is not in any acute distress. Eyes: PERRLA, sclerae normal, conjunctivae normal ENT: normal nasal exam, normal mouth exam, normal throat exam Neck: normal range of motion, trachea midline, no stridor, supple, no lymphadenopathy Respiratory: breath sounds normal, rales (bilaterally more so at the bases.), rhonchi, wheezing (scattered.) bilaterally. Cardiovascular: systolic murmur, other (tachycardia.) Abdomen: non tender, normal bowel sounds, no masses Genitourinary - Male: other (not performed.) Back: normal inspection, normal range of motion, no muscle spasm Upper Extremities: no edema, no deformity, normal ROM Lower Extremities: normal ROM, edema (bilaterally 2 +) Edema: Bilateral LE (2+) Pulses: radial (R) (2+), radial (L) (2+) Neuro: alert, oriented x 2, Moving all the extremities, but more lethargic, arousable. Current SOFA Score SOFA Score Response (Comments) Value Platelets (x10) > 150 0 Bilirubin (mg/dL) < 1.2 0 Lalo Coma Score 13 - 14 1 Level of Hypotension MAP less than 70 1 Creatinine (mg/dL) 2.0 - 3.4 2 Total 4 Assessment & Plan Elderly male, resting comfortably and is not in any acute distress. 1. NEUROLOGY: Overall patient remains stable and no acute issues at this time. 2. CARDIOLOGY: The patient with an acute Inferior wall SD. Troponin T has been going up. Not in any acute distress. Currently he is on medical management including the IV heparin and Cardiology has been following the case. Atrial Fibrillation. Rate controlled on current plan of care and will be continued. CHF/CAD. Will treat him accordingly as per cardiology recommendations. 3. PULMONARY: Possibility of Pneumonia/Sepsis. The patient was febrile and hypotensive during the night. Received rt IJ central line and IV fluids and was started on broad spectrum IV antibiotics. White count was elevated. Cultures are pending. Will follow the cultures and treat him accordingly. 4. RENAL: Chronic renal failure, which might be somewhat worse related to prerenal. Will monitor and IV Fluids cautiously due to CHF. 5. GI: the patient overall remains stable. 6. ID/HEMATOLOGY: The patient probably has Pneumonia. was started on Levophed and also broad spectrum IV antibiotics. WBC is also elevated. Cultures are pending, but currently he is on Cefepime/Levaquin and Vancomycin and will adjust the antibiotics accordingly. 7. ENDOCRINOLOGY: The patient remains stable on current management and will continue with that. The patient is DNAR/Continue other treatment. DVT prophylaxis/IV Heparin. Had long discussion with the family and also patient and answered all the questions. The patient has rt IJ central line. Clean and no signs of infection. Spent greater than 35 minutes of critical care time. DR. Rat[facility]. Consults & Procedures Consultants: Cardiology: Austyn uGzman Procedures: RT IJ Central Line. Dipesh Carballo. Data Medications: Current Inpatient Medications Medications (Trade) Dose Ordered Sig/Pb Route Start Time Stop Time Status Last Admin Dose Admin Acetaminophen (Tylenol Tab) 650 mg Q4H PRN PO 08/03/17 15:30 09/02/17 15:29 Ondansetron HCl (Zofran Inj) 4 mg Q6H PRN IV 08/03/17 15:30 09/02/17 15:29 Heparin Sodium/ Dextrose 500 ml @ 24 mls/hr [id number] PRN IV 08/03/17 16:15 09/02/17 16:14 Pantoprazole Sodium 40 mg/ Syringe 10 ml @ 5 mls/min DAILY@11 IV 08/04/17 11:00 09/03/17 10:59 08/04/17 10:06 5 MLS/MIN Cholecalciferol (Vitamin D Tab) 400 inter.unit DAILY PO 08/04/17 09:00 09/03/17 08:59 Future Hold Cyanocobalamin (Vitamin B-12 Tab) 1,000 mcg DAILY PO 08/04/17 09:00 09/03/17 08:59 Future Hold Fish Oil ([place]-3 (Purified Fish Oil) Cap) 1 gm DAILY PO 08/04/17 09:00 09/03/17 08:59 Future Hold Gabapentin (Neurontin Cap) 100 mg TID PO 08/03/17 21:00 09/02/17 20:59 Future Hold Lidocaine (Lidoderm Patch 5%) 1 patch DAILY TD 08/04/17 09:00 09/03/17 08:59 08/04/17 10:01 1 PATCH Metoprolol Succinate (Toprol Xl Tab) 12.5 mg DAILY PO 08/04/17 09:00 09/03/17 08:59 Multivitamins/ Minerals (Multivitamin W/ Minerals Tab) 1 tab DAILY PO 08/04/17 09:00 09/03/17 08:59 Future Hold Oxycodone/ Acetaminophen (Percocet 10-325MG Tab) 2 tab Q6H PRN PO 08/03/17 16:45 08/17/17 16:44 Future Hold Prednisone (PredniSONE TAB) 5 mg DAILY PO 08/04/17 09:00 09/03/17 08:59 Future Hold Valacyclovir HCl (Valtrex Tab) 500 mg DAILY PO 08/04/17 09:00 09/03/17 08:59 Future Hold Folic Acid (Folvite Tab) 800 mcg DAILY PO 08/04/17 09:00 09/03/17 08:59 Future Hold Miscellaneous (Remove Lidoderm Patch) 1 ea DAILY@21 N/A 08/03/17 21:00 09/02/17 20:59 Torsemide (Demadex Tab) 40 mg QAM PO 08/04/17 09:00 09/03/17 08:59 Aspirin (Ecotrin Tab) 81 mg QAM PO 08/04/17 09:00 09/03/17 08:59 Atorvastatin Calcium (Lipitor Tab) 40 mg QAM PO 08/03/17 18:30 09/02/17 18:29 Acetaminophen 650 mg/Empty Bag 65 ml @ 260 mls/hr Q6H PRN IV 08/03/17 20:30 09/02/17 20:29 08/03/17 21:13 260 MLS/HR Levofloxacin (Consult) 1 ea DAILY PRN N/A 08/03/17 21:16 09/02/17 21:15 Piperacillin Sod/ Tazobactam Sod (Consult) 1 ea UD PRN N/A 08/03/17 21:30 09/02/17 21:29 Piperacillin Sod/ Tazobactam Sod 4.5 gm/Dextrose 70 ml @ 17.5 mls/hr Q8H IV 08/04/17 03:00 08/11/17 02:59 08/04/17 12:44 17.5 MLS/HR Vancomycin HCl (Consult) 1 ea UD PRN N/A 08/03/17 23:00 09/02/17 22:59 Ipratropium Dyer (Atrovent 0.02% 0.5MG/2.5ML Neb) 0.5 mg Q6R INH 08/04/17 03:00 09/03/17 02:59 08/04/17 07:18 0.5 MG Levalbuterol (Xopenex 1.25MG/ 0.5ML Neb) 1.25 mg Q6R INH 08/04/17 03:00 09/03/17 02:59 08/04/17 07:18 1.25 MG Ipratropium Dyer (Atrovent 0.02% 0.5MG/2.5ML Neb) 0.5 mg Q4H PRN INH 08/03/17 23:45 09/02/17 23:44 08/03/17 23:40 0.5 MG Levalbuterol (Xopenex 1.25MG/ 0.5ML Neb) 1.25 mg Q4H PRN INH 08/03/17 23:45 09/02/17 23:44 08/03/17 23:40 1.25 MG Norepinephrine Bitartrate 8 mg/ Dextrose 508 ml @ 0 mls/hr Q0M PRN IV 08/04/17 02:55 09/03/17 02:54 Levofloxacin 750 mg/Prmx 150 ml @ 100 mls/hr Q48H IV 08/05/17 22:00 08/12/17 21:59 Insulin Aspart (novoLOG ASPART) SLIDING SCALE Q4 SC 08/04/17 12:00 09/03/17 11:59 Fentanyl (Duragesic Patch) 50 mcg Q72H TD 08/04/17 13:00 08/18/17 12:59 Miscellaneous (Fentanyl Patch Remove & Waste) 1 ea Q72H N/A 08/07/17 12:59 09/06/17 12:58 Miscellaneous Information (Check Fentanyl Patch Placement) 1 ea QS N/A 08/04/17 16:00 09/03/17 15:59 Methylprednisolone Sodium Succinate 40 mg/Syringe 0.64 ml @ 1.5 mls/min Q24H IV 08/04/17 18:00 09/03/17 17:59 Vital Signs: Date Time Temp Pulse Resp B/P (MAP) Pulse Ox O2 Delivery O2 Flow Rate FiO2 08/04/17 12:00 Nasal Cannula 4.0 08/04/17 12:00 37.1 83 25 95/54 (68) 98 Nasal Cannula 4.0 08/04/17 10:15 88 34 103/56 (72) 95 Nasal Cannula 4.0 08/04/17 10:00 84 32 88/62 (71) 96 Nasal Cannula 4.0 08/04/17 08:00 36.8 83 17 100/52 (68) 97 BiPAP 30 08/04/17 08:00 BiPAP 30 08/04/17 08:00 BiPAP 30 08/04/17 07:21 86 96 30 08/04/17 07:20 78 22 111/58 (75) 96 08/04/17 07:19 86 17 95 BiPAP/CPAP 30 08/04/17 07:15 81 16 108/55 (72) 98 08/04/17 07:10 81 19 110/57 (74) 98 08/04/17 07:05 80 17 103/58 (73) 98 08/04/17 07:00 84 19 101/61 (74) 98 08/04/17 06:55 82 19 100/58 (72) 98 08/04/17 06:50 81 20 101/55 (70) 98 08/04/17 06:45 83 18 101/51 (68) 98 08/04/17 06:40 80 16 98/61 (73) 98 08/04/17 06:35 80 16 97/53 (68) 97 08/04/17 06:30 85 18 94/56 (69) 97 08/04/17 06:25 81 17 88/57 (67) 97 08/04/17 06:20 84 17 99/48 (65) 97 08/04/17 06:15 81 16 96/51 (66) 96 08/04/17 06:10 82 18 89/50 (63) 97 08/04/17 06:05 82 17 98/49 (65) 96 08/04/17 06:00 80 18 82/50 (61) 96 08/04/17 05:35 85 16 102/53 (69) 97 08/04/17 05:30 84 18 104/60 (75) 98 08/04/17 05:25 85 17 109/62 (78) 97 08/04/17 05:20 93 17 117/66 (83) 97 08/04/17 05:18 99 96 30 08/04/17 05:15 90 18 118/69 (85) 97 08/04/17 05:10 92 29 106/87 (93) 96 08/04/17 05:05 148 23 105/74 (84) 08/04/17 05:01 93 18 114/68 (83) 08/04/17 04:55 82 17 104/56 (72) 97 08/04/17 04:50 85 19 98/60 (73) 97 08/04/17 04:45 83 16 90/58 (69) 96 08/04/17 04:40 82 16 91/54 (66) 96 08/04/17 04:35 82 19 93/50 (64) 96 08/04/17 04:30 86 18 96/50 (65) 95 08/04/17 04:25 81 18 89/55 (66) 95 08/04/17 04:20 83 17 85/46 (59) 95 08/04/17 04:15 82 18 85/48 (60) 95 08/04/17 04:10 83 18 86/50 (62) 95 08/04/17 04:05 83 18 83/50 (61) 96 08/04/17 04:00 82 19 81/54 (63) 97 08/04/17 04:00 BiPAP 08/04/17 03:30 83 18 86/51 (63) 95 08/04/17 03:25 82 19 90/48 (62) 95 08/04/17 03:20 81 18 88/50 (63) 95 08/04/17 03:15 80 17 82/49 (60) 96 08/04/17 03:10 76 20 81/50 (60) 97 08/04/17 03:05 81 94 30 08/04/17 03:05 80 18 80/42 (55) 97 08/04/17 03:04 81 17 94 BiPAP/CPAP 30 08/04/17 03:00 81 18 80/42 (55) 94 08/04/17 02:55 79 17 87/47 (60) 94 08/04/17 02:50 81 18 70/45 (53) 95 08/04/17 02:45 82 17 76/46 (56) 96 08/04/17 02:40 83 17 85/51 (62) 99 08/04/17 02:35 81 16 79/53 (62) 97 08/04/17 02:30 77 19 89/59 (69) 99 08/04/17 02:25 82 18 88/49 (62) 98 08/04/17 02:20 86 17 87/53 (64) 98 08/04/17 02:18 87 22 91/54 (66) 97 08/04/17 02:15 86 23 100/61 (74) 93 08/04/17 02:10 88 23 98/58 (71) 86 08/04/17 02:05 78 20 98/61 (73) 96 08/04/17 02:00 85 28 95/54 (68) 95 08/04/17 01:50 78 23 79/48 (58) 95 08/04/17 01:45 78 16 78/46 (57) 95 08/04/17 01:40 77 15 74/48 (57) 97 08/04/17 01:35 75 18 74/43 (53) 94 08/04/17 01:30 78 19 63/42 (49) 95 08/04/17 01:25 81 16 70/40 (50) 93 08/04/17 01:20 81 16 71/36 (48) 93 08/04/17 01:15 76 17 65/40 (48) 92 08/04/17 01:10 82 17 71/42 (52) 94 08/04/17 01:09 76 24 71/44 (53) 95 08/04/17 01:05 86 18 68/37 (47) 90 08/04/17 01:00 82 29 65/43 (50) 94 08/04/17 00:59 82 21 65/48 (54) 96 08/04/17 00:55 79 18 66/40 (49) 08/04/17 00:50 79 97 30 08/04/17 00:45 80 18 70/41 (51) 94 08/04/17 00:30 84 21 69/45 (53) 08/04/17 00:22 99 32 75/44 (54) 93 08/04/17 00:15 80 24 75/47 (56) 91 08/04/17 00:01 36.9 91 16 91 08/03/17 23:59 Nasal Cannula 4.0 08/03/17 23:40 84 24 93 Nasal Cannula 4.0 08/03/17 22:21 93 23 73/45 (49) 94 08/03/17 22:09 100 36 70/46 (51) 93 08/03/17 22:08 37.4 Nasal Cannula 4.0 08/03/17 21:19 109 25 96/64 (68) 94 08/03/17 20:00 Nasal Cannula 2.0 08/03/17 20:00 39.3 Nasal Cannula 2.0 08/03/17 20:00 108 37 97/61 (74) 93 08/03/17 18:36 Nasal Cannula 2.0 08/03/17 18:30 108 33 101/55 (71) 96 08/03/17 18:06 107 29 95/56 (66) 95 08/03/17 17:30 112 27 110/64 (76) 79 08/03/17 17:22 37.5 124 32 99/79 96 Nasal Cannula 2.0 08/03/17 17:01 122 43 99/79 (84) 93 08/03/17 16:40 110 31 114/63 (79) 96 08/03/17 16:06 106 20 115/67 98 08/03/17 15:11 102 22 110/65 98 Room Air 08/03/17 14:40 101 22 118/65 100 Nasal Cannula 2.0 08/03/17 14:20 109 20 121/79 90 Room Air Laboratory Results: Last 24 Hours Test 08/03/17 14:16 08/03/17 16:00 08/03/17 17:00 08/03/17 18:32 Bedside Troponin I 0.100 ng/ml Influenza Type A (RT-PCR) Neg for Influ A Influenza Type B (RT-PCR) Neg for Influ B Urine Color YELLOW Urine Appearance CLEAR Urine pH 5.0 Urine Specific [place] 1.016 Urine Protein NEG Urine Glucose (UA) NEG Urine Ketones NEG Urine Occult Blood NEG Urine Nitrite NEG Urine Bilirubin NEG Urine Urobilinogen NEG Urine Leukocyte Esterase NEG Bedside Glucose 179 mg/dl Test 08/03/17 18:46 08/03/17 21:57 08/03/17 23:14 08/04/17 00:17 Creatine Kinase MB 15.5 ng/ml 34.4 ng/ml Creatine Kinase MB Ratio Troponin I 2.890 ng/ml 21.400 ng/ml Activated Partial Thromboplast Time 164.1 SECONDS 212.4 SECONDS 141.7 SECONDS Partial Thromboplastin Ratio 6.3 8.0 5.4 Lactic Acid Level 2.9 mmol/L Procalcitonin 2.87 ng/ml Random Cortisol 28.36 mcg/dl Hemoglobin 10.1 g/dL Hematocrit 31.3 % Test 08/04/17 00:25 08/04/17 01:06 08/04/17 02:20 08/04/17 05:37 Bedside Glucose 190 mg/dl Activated Partial Thromboplast Time 122.1 SECONDS 68.6 SECONDS Partial Thromboplastin Ratio 4.7 2.6 White Blood Count 24.46 K/uL Red Blood Count 3.42 M/uL Hemoglobin 10.4 g/dL Hematocrit 33.9 % Mean Corpuscular Volume 99.1 fL Mean Corpuscular Hemoglobin 30.4 pg Mean Corpuscular Hemoglobin Concent 30.7 g/dl RDW Standard Deviation 58.9 fL RDW Coefficient of Variation 16.3 % Platelet Count 285 K/uL Mean Platelet Volume 9.4 fL Prothrombin Time 19.3 SECONDS Prothromb Time International Ratio 1.9 Sodium Level 135 mmol/L Potassium Level 4.2 mmol/L Chloride Level 100 mmol/L Carbon Dioxide Level 25 mmol/L Anion Gap 10.0 mmol/L Blood Urea Nitrogen 83 mg/dl Creatinine 2.17 mg/dl Est Creatinine Clear Calc Drug Dose 28.4 ml/min Estimated GFR () 30.8 Estimated GFR (Non- 26.6 BUN/Creatinine Ratio 38.1 Random Glucose 166 mg/dl Lactic Acid Level 1.6 mmol/L Calcium Level 7.8 mg/dl Magnesium Level 2.5 mg/dl Test 08/04/17 05:39 08/04/17 11:02 08/04/17 13:00 Bedside Glucose 188 mg/dl Lactic Acid Level 1.8 mmol/L Troponin I 28.000 ng/ml
[2017-08-04 15:41] LABS: PTT PATIENT 178.1 SECONDS (21.0-31.0)
[2017-08-04] MEDS: FENTANYL 50 MCG/HR TDSY TD SCH (16:14)
[2017-08-04] MEDS: CHECK FENTANYL PATCH PLACEMENT SCH (16:14)
--- NOTE | 2017-08-04 16:25 | Progress Note ---
Internal Med Progress Note Date of Service: Aug 04, 2017. Provider Documentation: SUBJECTIVE: Patient seen and examined at bedside. Patient currently in the ICU. Has been on IV heparin, IV antibiotics, IV Norepinephrine. Patient also been able to speak but some discomfort. Has IV access of right neck OBJECTIVE: Vital Signs-as noted below Exam: Vitals: HR 78 bpm , 102/59 on IV IV Norepinephrine General- no acute distress Eyes- EOMI Neck- IV access of right neck Lungs- fair air entry, no wheezes Heart- Regular rate Abdomen- non tender, normal bowel sounds, Extremities-Bilateral LE (2+) ASSESSMENT & PLAN: This is a 86 year old M admitted to ICU level of care after acute Inferior wall RI and is on IV heparin Has Right Internal Jugular central line Patient still requires IV Norepinephrine to maintain a systolic blood pressure of 100. Appreciate further ICU recommendations on management of pressors Atrial Fibrillation. Rate controlled CHF/CAD: aspirin, atorvastatin, IV heparin Cardiogenic shock vs Septic Shock Possible of Pneumonia/Sepsis: broad spectrum IV antibiotics Zosyn and Levaquin and Vancomycin. Cultures pending Code Status is DNR/DNI Family information: [phone] Disposition: Patient to remain on ICU level of care until hemodynamically stable without pressors Vital Signs: Date Time Temp Pulse Resp B/P (MAP) Pulse Ox O2 Delivery O2 Flow Rate FiO2 08/04/17 14:24 86 17 95 Nasal Cannula 2.0 08/04/17 14:00 79 16 95/48 (64) 98 Nasal Cannula 2.0 08/04/17 12:57 73 18 77/46 (56) 95 Nasal Cannula 2.0 08/04/17 12:49 79 16 79/40 (53) 96 Nasal Cannula 2.0 08/04/17 12:45 76 14 79/36 (50) 93 Nasal Cannula 2.0 08/04/17 12:00 Nasal Cannula 4.0 08/04/17 12:00 37.1 83 25 95/54 (68) 98 Nasal Cannula 4.0 08/04/17 10:15 88 34 103/56 (72) 95 Nasal Cannula 4.0 08/04/17 10:00 84 32 88/62 (71) 96 Nasal Cannula 4.0 08/04/17 08:00 36.8 83 17 100/52 (68) 97 BiPAP 30 08/04/17 08:00 BiPAP 30 12/28/17 08:00 BiPAP 30 08/04/17 07:21 86 96 30 08/04/17 07:20 78 22 111/58 (75) 96 08/04/17 07:19 86 17 95 BiPAP/CPAP 30 08/04/17 07:15 81 16 108/55 (72) 98 08/04/17 07:10 81 19 110/57 (74) 98 08/04/17 07:05 80 17 103/58 (73) 98 08/04/17 07:00 84 19 101/61 (74) 98 08/04/17 06:55 82 19 100/58 (72) 98 08/04/17 06:50 81 20 101/55 (70) 98 08/04/17 06:45 83 18 101/51 (68) 98 08/04/17 06:40 80 16 98/61 (73) 98 08/04/17 06:35 80 16 97/53 (68) 97 08/04/17 06:30 85 18 94/56 (69) 97 08/04/17 06:25 81 17 88/57 (67) 97 08/04/17 06:20 84 17 99/48 (65) 97 08/04/17 06:15 81 16 96/51 (66) 96 08/04/17 06:10 82 18 89/50 (63) 97 08/04/17 06:05 82 17 98/49 (65) 96 08/04/17 06:00 80 18 82/50 (61) 96 08/04/17 05:35 85 16 102/53 (69) 97 08/04/17 05:30 84 18 104/60 (75) 98 08/04/17 05:25 85 17 109/62 (78) 97 08/04/17 05:20 93 17 117/66 (83) 97 08/04/17 05:18 99 96 30 08/04/17 05:15 90 18 118/69 (85) 97 08/04/17 05:10 92 29 106/87 (93) 96 08/04/17 05:05 148 23 105/74 (84) 08/04/17 05:01 93 18 114/68 (83) 08/04/17 04:55 82 17 104/56 (72) 97 08/04/17 04:50 85 19 98/60 (73) 97 08/04/17 04:45 83 16 90/58 (69) 96 08/04/17 04:40 82 16 91/54 (66) 96 08/04/17 04:35 82 19 93/50 (64) 96 08/04/17 04:30 86 18 96/50 (65) 95 08/04/17 04:25 81 18 89/55 (66) 95 08/04/17 04:20 83 17 85/46 (59) 95 08/04/17 04:15 82 18 85/48 (60) 95 08/04/17 04:10 83 18 86/50 (62) 95 08/04/17 04:05 83 18 83/50 (61) 96 08/04/17 04:00 82 19 81/54 (63) 97 08/04/17 04:00 BiPAP 08/04/17 03:30 83 18 86/51 (63) 95 08/04/17 03:25 82 19 90/48 (62) 95 08/04/17 03:20 81 18 88/50 (63) 95 08/04/17 03:15 80 17 82/49 (60) 96 08/04/17 03:10 76 20 81/50 (60) 97 08/04/17 03:05 81 94 30 08/04/17 03:05 80 18 80/42 (55) 97 08/04/17 03:04 81 17 94 BiPAP/CPAP 30 08/04/17 03:00 81 18 80/42 (55) 94 08/04/17 02:55 79 17 87/47 (60) 94 08/04/17 02:50 81 18 70/45 (53) 95 08/04/17 02:45 82 17 76/46 (56) 96 08/04/17 02:40 83 17 85/51 (62) 99 08/04/17 02:35 81 16 79/53 (62) 97 08/04/17 02:30 77 19 89/59 (69) 99 08/04/17 02:25 82 18 88/49 (62) 98 08/04/17 02:20 86 17 87/53 (64) 98 08/04/17 02:18 87 22 91/54 (66) 97 08/04/17 02:15 86 23 100/61 (74) 93 08/04/17 02:10 88 23 98/58 (71) 86 08/04/17 02:05 78 20 98/61 (73) 96 08/04/17 02:00 85 28 95/54 (68) 95 08/04/17 01:50 78 23 79/48 (58) 95 08/04/17 01:45 78 16 78/46 (57) 95 08/04/17 01:40 77 15 74/48 (57) 97 08/04/17 01:35 75 18 74/43 (53) 94 08/04/17 01:30 78 19 63/42 (49) 95 08/04/17 01:25 81 16 70/40 (50) 93 08/04/17 01:20 81 16 71/36 (48) 93 08/04/17 01:15 76 17 65/40 (48) 92 08/04/17 01:10 82 17 71/42 (52) 94 08/04/17 01:09 76 24 71/44 (53) 95 08/04/17 01:05 86 18 68/37 (47) 90 08/04/17 01:00 82 29 65/43 (50) 94 08/04/17 00:59 82 21 65/48 (54) 96 08/04/17 00:55 79 18 66/40 (49) 08/04/17 00:50 79 97 30 08/04/17 00:45 80 18 70/41 (51) 94 08/04/17 00:30 84 21 69/45 (53) 08/04/17 00:22 99 32 75/44 (54) 93 08/04/17 00:15 80 24 75/47 (56) 91 08/04/17 00:01 36.9 91 16 91 08/03/17 23:59 Nasal Cannula 4.0 08/03/17 23:40 84 24 93 Nasal Cannula 4.0 08/03/17 22:21 93 23 73/45 (49) 94 08/03/17 22:09 100 36 70/46 (51) 93 08/03/17 22:08 37.4 Nasal Cannula 4.0 08/03/17 21:19 109 25 96/64 (68) 94 08/03/17 20:00 Nasal Cannula 2.0 08/03/17 20:00 39.3 Nasal Cannula 2.0 08/03/17 20:00 108 37 97/61 (74) 93 08/03/17 18:36 Nasal Cannula 2.0 08/03/17 18:30 108 33 101/55 (71) 96 08/03/17 18:06 107 29 95/56 (66) 95 08/03/17 17:30 112 27 110/64 (76) 79 08/03/17 17:22 37.5 124 32 99/79 96 Nasal Cannula 2.0 08/03/17 17:01 122 43 99/79 (84) 93 Lab Results: Results Past 24 Hours Test 08/03/17 17:00 08/03/17 18:32 08/03/17 18:46 08/03/17 21:57 Range/Units Urine Color YELLOW Urine Appearance CLEAR CLEAR Urine pH 5.0 4.5-7.5 Urine Specific Mercer 1.016 1.000-1.030 Urine Protein NEG NEG Urine Glucose (UA) NEG NEG Urine Ketones NEG NEG Urine Occult Blood NEG NEG Urine Nitrite NEG NEG Urine Bilirubin NEG NEG Urine Urobilinogen NEG NEG Urine Leukocyte Esterase NEG NEG Bedside Glucose 179 70-99 mg/dl Creatine Kinase MB 15.5 0.5-3.6 ng/ml Creatine Kinase MB Ratio 0-3.0 Troponin I 2.890 0-0.045 ng/ml Activated Partial Thromboplast Time 164.1 21.0-31.0 SECONDS Partial Thromboplastin Ratio 6.3 Lactic Acid Level 2.9 0.4-2.0 mmol/L Procalcitonin 2.87 0-0.5 ng/ml Test 08/03/17 23:14 08/04/17 00:17 08/04/17 00:25 08/04/17 01:06 Range/Units Activated Partial Thromboplast Time 212.4 141.7 122.1 21.0-31.0 SECONDS Partial Thromboplastin Ratio 8.0 5.4 4.7 Random Cortisol 28.36 mcg/dl Hemoglobin 10.1 14.0-18.0 g/dL Hematocrit 31.3 42-52 % Creatine Kinase MB 34.4 0.5-3.6 ng/ml Creatine Kinase MB Ratio 0-3.0 Troponin I 21.400 0-0.045 ng/ml Bedside Glucose 190 70-99 mg/dl Test 08/04/17 02:20 08/04/17 05:37 08/04/17 05:39 08/04/17 11:02 Range/Units Activated Partial Thromboplast Time 68.6 21.0-31.0 SECONDS Partial Thromboplastin Ratio 2.6 White Blood Count 24.46 4.8-10.8 K/uL Red Blood Count 3.42 4.7-6.1 M/uL Hemoglobin 10.4 14.0-18.0 g/dL Hematocrit 33.9 42-52 % Mean Corpuscular Volume 99.1 80-100 fL Mean Corpuscular Hemoglobin 30.4 25-34 pg Mean Corpuscular Hemoglobin Concent 30.7 32-36 g/dl RDW Standard Deviation 58.9 36.4-46.3 fL RDW Coefficient of Variation 16.3 11.5-14.5 % Platelet Count 285 130-400 K/uL Mean Platelet Volume 9.4 7.4-10.4 fL Prothrombin Time 19.3 9.0-12.0 SECONDS Prothromb Time International Ratio 1.9 0.9-1.1 Sodium Level 135 136-145 mmol/L Potassium Level 4.2 3.5-5.1 mmol/L Chloride Level 100 98-107 mmol/L Carbon Dioxide Level 25 21-32 mmol/L Anion Gap 10.0 3-11 mmol/L Blood Urea Nitrogen 83 7-18 mg/dl Creatinine 2.17 0.60-1.40 mg/dl Est Creatinine Clear Calc Drug Dose 28.4 ml/min Estimated GFR () 30.8 Estimated GFR (Non- 26.6 BUN/Creatinine Ratio 38.1 10-20 Random Glucose 166 70-99 mg/dl Lactic Acid Level 1.6 1.8 0.4-2.0 mmol/L Calcium Level 7.8 8.5-10.1 mg/dl Magnesium Level 2.5 1.8-2.4 mg/dl Bedside Glucose 188 70-99 mg/dl Troponin I 28.000 0-0.045 ng/ml Test 08/04/17 13:00 08/04/17 14:58 08/04/17 15:58 08/04/17 16:44 Range/Units Activated Partial Thromboplast Time 234.8 178.1 21.0-31.0 SECONDS Partial Thromboplastin Ratio 8.8 6.9 Microbiology Results 08/03/17 Blood Culture, Received Pending 08/03/17 Blood Culture, Received Pending 08/04/17 Gram Stain - Final, Resulted 08/04/17 Sputum Culture, Resulted Pending 08/03/17 Urine Culture - Preliminary, Resulted NO GROWTH - LESS THAN 1,000 COLONIES/...
[2017-08-04 16:47] LABS: PTT PATIENT 104.9 SECONDS (21.0-31.0)
[2017-08-04] MEDS: ACETAMINOPHEN IV 650 MG in EMPTY BAG 0 ML IV PRN (17:35)
[2017-08-04 17:43] LABS: PTT PATIENT 71.3 SECONDS (21.0-31.0)
[2017-08-04] MEDS ORDERED: METHYLPREDNISOLONE 40 MG in SYRINGE 0 ML IV SCH (18:00)
--- NOTE | 2017-08-04 18:35 | ECHOCARDIOGRAM REPORT ---
*NOTICE TO RECEIVING [employer] This information is strictly Confidential and protected under [place] law. [place] law prohibits you from making any further disclosure of this information unless further disclosure is expressly permitted by the written consent of the person to whom it pertains or is authorized by law. A general authorization for the release of medical or other information is not sufficient for this purpose. Hospital accepts no responsibility if the information is made available to any other person, INCLUDING THE PATIENT. Interpretation Summary * Name: BASHIR BILLY Study Date: 08/04/2017 07:02 AM BP: 110/65 mmHg * [facility] HR: 102 * : 1930 (M/d/yyy) Gender: Male Height: 70 in * Age: 86 yrs Ethnicity: [place] Weight: 201 lb * Ordering Physician: Cee Hammer * Referring Physician: Self, Referred * Performed By: Anette Foster RDCS * * Reason For Study: Acute Myocardial Infarction * BSA: 2.1 m2 * -- Conclusions -- * The left ventricle is moderately dilated. * There is global thinning of the left ventricular galvan. * Left ventricular systolic function is severely reduced. * Ejection Fraction = <15%. * The right ventricle is severely dilated. * The right ventricular systolic function is severely reduced. * The left atrium is moderately dilated. * The right atrium is severely dilated. * There is severe calcific aortic valve stenosis. * There is moderate mitral regurgitation. * There is moderate tricuspid regurgitation. * Severe Pulmonary Hypertension Procedure Details * A complete two-dimensional transthoracic echocardiogram was performed (2D, M-mode, Doppler and color flow Doppler). * The study was technically difficult. * The study was technically difficult, but visualization was adequate with the administration of Definity ultrasound contrast. * There were technical limitations due to patient'spoor positioning * A contrast injection of Definity was performed to improve assessment of LV function. * Contrast was injected into an intravenous site in the left arm. * One vial of Definity ultrasound contrast was diluted in normal saline to a total volume of 10 ml. A total of '2' ml of solution was administered during imaging. * Lot # [id number] of Definity utilized for procedure. * Expiration date . * The attending nurse who injected the contrast agent was WADE Castillo. Left Ventricle * The left ventricle is moderately dilated. * There is global thinning of the left ventricular galvan. * Ejection Fraction = <15%. * Left ventricular systolic function is severely reduced. Right Ventricle * The right ventricle is severely dilated. * The right ventricular systolic function is severely reduced. Atria * The left atrium is moderately dilated. * The right atrium is severely dilated. Mitral Valve * The mitral valve leaflets appear thickened, but open well. * There is moderate mitral annular calcification. * There is moderate mitral regurgitation. Tricuspid Valve * The tricuspid valve is not well visualized. * There is moderate tricuspid regurgitation. Aortic Valve * There is severe calcific aortic valve stenosis. * Trace aortic regurgitation. Pulmonic Valve * The pulmonic valve is not well visualized. * Trace pulmonic valvular regurgitation. Pericardium/Pleural * There is no pericardial effusion. Great Vessels * Severe Pulmonary Hypertension MMode 2D Measurements and Calculations IVSd 0.86 cm IVSs 1.2 cm LVIDd 5.7 cm LVIDs 4.5 cm LVPWd 1.0 cm LVPWs 1.0 cm IVS/LVPW 0.86 FS 20.2 % EDV(Teich) 157.0 ml ESV(Teich) 93.1 ml EF(Teich) 40.7 % EDV(cubed) 180.6 ml ESV(cubed) 92.0 ml EF(cubed) 49.1 % % IVS thick 37.6 % % LVPW thick 3.6 % LV mass(C)d 203.8 grams LV mass(C)dI 97.4 grams/m\S\2 LV mass(C)s 178.7 grams LV mass(C)sI 85.5 grams/m\S\2 SV(Teich) 63.9 ml SI(Teich) 30.6 ml/m\S\2 SV(cubed) 88.7 ml SI(cubed) 42.4 ml/m\S\2 EPSS 1.9 cm Ao root diam 3.1 cm Ao root area 7.8 cm\S\2 ACS 1.4 cm LA dimension 4.9 cm LA/Ao 1.6 LVAd ap4 46.4 cm\S\2 LVLd ap4 8.9 cm EDV(MOD-sp4) 199.5 ml EDV(sp4-el) 205.6 ml LVAs ap4 35.2 cm\S\2 LVLs ap4 8.2 cm ESV(MOD-sp4) 125.2 ml ESV(sp4-el) 128.9 ml EF(MOD-sp4) 37.3 % EF(sp4-el) 37.3 % LVAd ap2 45.6 cm\S\2 LVLd ap2 8.7 cm EDV(MOD-sp2) 198.1 ml EDV(sp2-el) 202.7 ml LVAs ap2 35.6 cm\S\2 LVLs ap2 8.5 cm ESV(MOD-sp2) 126.6 ml ESV(sp2-el) 126.9 ml EF(MOD-sp2) 36.1 % EF(sp2-el) 37.4 % LVLd %diff -2.27 % EDV(MOD-bp) 199.6 ml LVLs %diff 3.3 % ESV(MOD-bp) 124.7 ml EF(MOD-bp) 37.5 % SV(MOD-sp4) 74.3 ml SI(MOD-sp4) 35.5 ml/m\S\2 SV(MOD-sp2) 71.5 ml SI(MOD-sp2) 34.2 ml/m\S\2 SV(MOD-bp) 74.9 ml SI(MOD-bp) 35.8 ml/m\S\2 SV(sp4-el) 76.7 ml SI(sp4-el) 36.7 ml/m\S\2 SV(sp2-el) 75.8 ml SI(sp2-el) 36.2 ml/m\S\2 Doppler Measurements and Calculations MV E max luzmaria 89.2 cm/sec MV dec time 0.17 sec Ao V2 max 182.1 cm/sec Ao max PG 13.3 mmHg Ao max PG (full) 10.6 mmHg AI max luzmaria 362.5 cm/sec AI max PG 52.6 mmHg AI dec slope 233.4 cm/sec\S\2 AI P1/2t 455.0 msec LV V1 max PG 2.7 mmHg LV V1 max 81.5 cm/sec PA V2 max 101.9 cm/sec PA max PG 4.2 mmHg PI max luzmaria 200.5 cm/sec PI max PG 16.1 mmHg PI dec slope 268.7 cm/sec\S\2 PI P1/2t 218.5 msec TR max luzmaria 322.8 cm/sec
[2017-08-05] VITALS (39 sets, daily range): BP systolic 80–123; BP diastolic 45–73; PULSE 77–100; TEMP 36.3–36.8; O2SAT 93–98
[2017-08-05 00:35] LABS: PTT PATIENT 143.1 SECONDS (21.0-31.0)
[2017-08-05] MEDS: CHECK FENTANYL PATCH PLACEMENT SCH ×4 (01:09→23:34)
[2017-08-05] MEDS: INSULIN ASPART 100 UNITS/ML 3 ML PEN SC SCH ×6 (01:12→20:51)
[2017-08-05] MEDS: IPRATROPIUM BROMIDE NEB SOLN 0.02% 2.5 ML VIAL INH SCH ×4 (01:46→19:43)
[2017-08-05] MEDS: LEVALBUTEROL 1.25MG/0.5ML NEB INH SCH ×4 (01:46→19:43)
[2017-08-05] MEDS ORDERED: VANCOMYCIN INJ 1,250 MG in SODIUM CHLORIDE 0.9% 250ML 250 ML IV SCH (02:30)
[2017-08-05] MEDS: PIPERACILL/TAZOBAC IV 4.5 GM in DEXTROSE 5% 50ML 50 ML IV SCH ×3 (03:12→18:33)
[2017-08-05 05:27] LABS: BASO % 0.1 %; BASO ABS # 0.02 K/uL (0-0.2); HEMATOCRIT 29.1 % (42-52); HEMOGLOBIN 9.3 g/dL (14.0-18.0); IG# 0.14 K/uL (0.00-0.02); LYMPH % 18.1 %; LYMPH ABS # 4.62 K/uL (1.2-3.4); MEAN CELL VOLUME 99.7 fL (80-100); MEAN CORPUSCULAR HEMOGLOBIN 31.8 pg (25-34); MEAN PLATELET VOLUME 9.2 fL (7.4-10.4); MONO % 5.9 %; MONO ABS # 1.51 K/uL (0.11-0.59); NEUT % 75.4 %; NEUT ABS # 19.19 K/uL (1.4-6.5); NUCLEATED RED BLOOD CELL ABS 0.04 K/uL (0-0); PLATELET COUNT 242 K/uL (130-400); RED CELL DISTRIBUTION WIDTH CV 16.4 % (11.5-14.5); RED CELL DISTRIBUTION WIDTH SD 59.7 fL (36.4-46.3); WHITE BLOOD COUNT 25.48 K/uL (4.8-10.8)
[2017-08-05 05:45] LABS: CREATININE 1.81 mg/dl (0.60-1.40); POTASSIUM 3.5 mmol/L (3.5-5.1)
--- NOTE | 2017-08-05 07:50 | DIAGNOSTIC IMAGING REPORT ---
SINGLE VIEW CHEST CLINICAL HISTORY: Pneumonia. FINDINGS: An AP, portable, upright chest radiograph is compared to study dated 08/04/2017. The examination is degraded by portable technique and patient rotation. A right internal jugular central venous catheter is unchanged in position. The heart is enlarged and there is atherosclerotic calcification of the thoracic aorta. The pulmonary vasculature is noncongested. Chronic interstitial thickening is unchanged. Airspace consolidation is again seen at the left lung base. Small pleural effusions are identified. No pneumothorax is seen. The skeletal structures are osteopenic. Posttraumatic deformity is again seen in the right proximal humerus. There are healed left-sided rib fractures. IMPRESSION: 1. Cardiomegaly without radiographic evidence of congestive failure. 2. Dense airspace consolidation is again seen at the left lung base remains typical appearance for pneumonia. Continued follow-up to resolution is recommended. 3. Small pleural effusions. Electronically signed by: Singh Alexandre M.D. 08/05/2017 7:48 AM Dictated Date/Time: 08/05/2017 7:47 AM
[2017-08-05 08:44] LABS: PTT PATIENT 81.1 SECONDS (21.0-31.0)
[2017-08-05] MEDS ORDERED: INSULIN GLARGINE SOLOSTAR 100 UNITS/ML 3 ML PEN SC ONE (09:00)
[2017-08-05] MEDS ORDERED: POTASSIUM CHLORIDE 20 MEQ TABCR PO ONE (09:30)
[2017-08-05] MEDS: OXYCODONE/ACETAMINOPHEN 10/325MG TAB PO PRN ×3 (09:31→22:33)
[2017-08-05] MEDS: ATORVASTATIN 40 MG TAB PO SCH (09:32)
[2017-08-05] MEDS: ASPIRIN 81 MG ECTAB PO SCH (09:32)
[2017-08-05] MEDS: CYANOCOBALAMIN 500 MCG TAB (VIT B-12) PO SCH (09:32)
[2017-08-05] MEDS: LIDODERM (LIDOCAINE) PATCH 5% TD SCH (09:33)
[2017-08-05] MEDS: CEROVITE ADV FORMULA TAB PO SCH (09:33)
[2017-08-05] MEDS: CHOLECALCIFEROL 400 INTER.UNIT TAB PO SCH (09:33)
[2017-08-05] MEDS: FoLIC ACID TAB 400 MCG TAB PO SCH (09:33)
[2017-08-05] MEDS: OMEGA-3 (PURIFIED FISH OIL) 1 GM CAP PO SCH (09:35)
[2017-08-05] MEDS: GABAPENTIN 100 MG CAP PO SCH ×3 (09:35→20:53)
--- NOTE | 2017-08-05 10:50 | Pharmacy Progress Note ---
Pharmacy Abx Dose Short Note Date of Service Aug 05, 2017. Assessment & Plan Date of Service Aug 04, 2017. Assessment & Plan Pharmacy is consulted for: * Glycemic management * Vancomycin, Zosyn and Levofloxacin dosing Assessment/Plan * 86 year old non-diabetic male admitted for ACS, cor pulmonale / pulm hypertension, and fever Vancomycin / Zosyn / Levofloxacin * Patient currently with AMI however improving. [facility] records reviewed. Baseline SCr ~1.3. Renal fxn improving SCr 2.17 --> 1.81, good U.O. last 24 hours. 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 Influenza A/B Ag and MRSA screen both were negative * 08/05 CXR: * Dense airspace consolidation is again seen at the left lung base remains typical appearance for pneumonia. Continued follow-up to resolution is recommended. * Vancomycin: * Random level drawn last evening ~24 hrs after 2000mg (~24mg/kg) loading dose * Random level = 13.3, therefore vancomycin restarted at 1250mg (~15mg/kg) IV Q 24 hours * Estimated half-life in this patient likely 22-24 hours but may be changing if renal fxn improving * Goal trough level 15-20mcg/mL for pulm infxn * Trough level ordered w/ 3rd maintenance dose on 08/07 * Might consider deescalation of ABX therapy in the near future as MRSA nasal swab was negative, greatly reducing the likelihood of MRSA pneumonia, plus Levofloxacin offers good coverage of drug resistant strep pn and MSSA, Zosyn also covers MSSA Zosyn * Initially started to 4.5gm IV extended-infusion Q 8 hrs as estCrCl > 20cc/ min. Will continue this dose for time being given critical illness. Levofloxacin * 750mg IV Q 48 hours indicated for pulm infxn with eCrCl 20-49cc/min Glycemic control * No recent A1c results available * BSGs have ranged 134-158 over the last 24 hrs while NPO * Low dose norepi required off and on over the last 24 hrs due to marginal - low BP's; currently off this AM * Fasting BSG 140 this AM with 20 units of Lantus on board * Solu-Cortef 50mg IV Q 6 hours d/c'd yesterday AM, however Solu-Medrol 40mg IV Q PM was started in the PM yesterday. Plan is to d/c' Solu-Medrol today and resume home dose of prednisone. This will likely lead to improved insulin sensitivity today. Will withhold basal insulin but continue CF and CR at this time, with plans to lighten these doses later today as the effects of last evenings Solu-medrol dose dissipate. * Plan: * Discontinue basal insulin (Lantus) * Change BSGs to ACHS and continue to cover with Novolog SQ * Goal range: 120 - 160mg/dL * Correction factor: 20mg/dL/unit this AM - reeval later today * Carb ratio: 1 unit per 8 gm CHO consumed this AM - reeval later today Pharmacy will continue to follow and will adjust dose/frequency as necessary. Thank you.
--- NOTE | 2017-08-05 11:38 | Critical Care Progress Note ---
Critical Care Progress Note Date of Service Aug 05, 2017. Attending Dr. Cheney Subjective Elderly male, resting comfortably and is not in any acute distress. Off the BiPAP and currently he is on 2 L NC O2 and is oxygenating well. Alert and awake and is oriented. Still C/O rt arm pain, which has been there for some times.So far all the cultures are negative. Lactic acid has also trended down. Denies any headache or dizziness or chest pain or abdominal pain or N/Vomiting or SOB. Objective General Appearance: Resting comfortably and is not in any acute distress. Eyes: PERRLA, sclerae normal, conjunctivae normal ENT: normal nasal exam, normal mouth exam, normal throat exam Neck: normal range of motion, trachea midline, no stridor, supple, no lymphadenopathy Respiratory: breath sounds normal, rales (bilaterally more so at the bases.), rhonchi, wheezing (scattered.) bilaterally. Cardiovascular: systolic murmur, other (tachycardia.) Abdomen: non tender, normal bowel sounds, no masses Genitourinary - Male: other (not performed.) Back: normal inspection, normal range of motion, no muscle spasm Upper Extremities: no edema, no deformity, normal ROM Lower Extremities: normal ROM, edema (bilaterally 2 +) Edema: Bilateral LE (2+) Pulses: radial (R) (2+), radial (L) (2+) Neuro: alert, oriented x 2, Moving all the extremities, but more lethargic, arousable. Current SOFA Score SOFA Score Response (Comments) Value PaO2/FiO2 (mmHg) < 300 2 SaO2 / FIO2 142 - 220 2 Platelets (x10) > 150 0 Bilirubin (mg/dL) < 1.2 0 Lalo Coma Score 13 - 14 1 Level of Hypotension MAP less than 70 1 Creatinine (mg/dL) 2.0 - 3.4 2 Total 8 Assessment & Plan Elderly male, resting comfortably and is not in any acute distress. 1. NEUROLOGY: Overall patient remains stable and no acute issues at this time. 2. CARDIOLOGY: The patient with an acute Inferior wall [place]. Troponin T has been trending down.. Not in any acute distress. Currently he is on medical management including the IV heparin and Cardiology has been following the case. Atrial Fibrillation. Rate controlled on current plan of care and will be continued. Also PT/INR has been therapeutic and IV heparin has been D/[place] and will be continued on his home medications of Coumadin. CHF/CAD. Will treat him accordingly as per cardiology recommendations. 3. PULMONARY: Possibility of Pneumonia/Sepsis. The patient Has improved significantly. He is off the pressors and currently, all of his cultures are negative. Continue with current antibiotics except Vancomycin. 4. RENAL: Chronic renal failure, which might be somewhat worse related to prerenal. Will monitor and IV Fluids cautiously due to CHF. 5. GI: the patient overall remains stable. 6. ID/HEMATOLOGY: The patient probably has Pneumonia. was started on Levophed and also broad spectrum IV antibiotics. WBC is also elevated. Cultures are pending, but currently he is on Cefepime/Levaquin and Vancomycin and will adjust the antibiotics accordingly. 7. ENDOCRINOLOGY: The patient remains stable on current management and will continue with that. The patient is DNAR/Continue other treatment. DVT prophylaxis/IV Heparin. Had long discussion with the family and also patient and answered all the questions. The patient has rt IJ central line. Clean and no signs of infection. Spent greater than 35 minutes of critical care time. Consults & Procedures Consultants: Cardiology: Austyn Guzman Procedures: RT IJ Central Line. Dipesh Carballo. Data Medications: Current Inpatient Medications Medications (Trade) Dose Ordered Sig/Pb Route Start Time Stop Time Status Last Admin Dose Admin Acetaminophen (Tylenol Tab) 650 mg Q4H PRN PO 08/03/17 15:30 09/02/17 15:29 Ondansetron HCl (Zofran Inj) 4 mg Q6H PRN IV 08/03/17 15:30 09/02/17 15:29 Cholecalciferol (Vitamin D Tab) 400 inter.unit DAILY PO 08/04/17 09:00 09/03/17 08:59 Future hold 08/05/17 09:33 400 INTER.UNIT Cyanocobalamin (Vitamin B-12 Tab) 1,000 mcg DAILY PO 08/04/17 09:00 09/03/17 08:59 Future hold 08/05/17 09:32 1,000 MCG Fish Oil ([place]-3 (Purified Fish Oil) Cap) 1 gm DAILY PO 08/04/17 09:00 09/03/17 08:59 Future hold 08/05/17 09:35 1 GM Gabapentin (Neurontin Cap) 100 mg TID PO 08/03/17 21:00 09/02/17 20:59 Future hold 08/05/17 09:35 100 MG Lidocaine (Lidoderm Patch 5%) 1 patch DAILY TD 08/04/17 09:00 09/03/17 08:59 08/05/17 09:33 1 PATCH Metoprolol Succinate (Toprol Xl Tab) 12.5 mg DAILY PO 08/04/17 09:00 09/03/17 08:59 Future hold Multivitamins/ Minerals (Multivitamin W/ Minerals Tab) 1 tab DAILY PO 08/04/17 09:00 09/03/17 08:59 Future hold 08/05/17 09:33 1 TAB Oxycodone/ Acetaminophen (Percocet 10-325MG Tab) 2 tab Q6H PRN PO 08/03/17 16:45 08/17/17 16:44 Future hold 08/05/17 09:31 2 TAB Prednisone (PredniSONE TAB) 5 mg DAILY PO 08/04/17 09:00 09/03/17 08:59 Future hold 08/05/17 09:33 5 MG Valacyclovir HCl (Valtrex Tab) 500 mg DAILY PO 08/04/17 09:00 09/03/17 08:59 Future hold 08/05/17 09:33 500 MG Folic Acid (Folvite Tab) 800 mcg DAILY PO 08/04/17 09:00 09/03/17 08:59 Future hold 08/05/17 09:33 800 MCG Miscellaneous (Remove Lidoderm Patch) 1 ea DAILY@21 N/A 08/03/17 21:00 09/02/17 20:59 08/04/17 20:34 1 EA Torsemide (Demadex Tab) 40 mg QAM PO 08/04/17 09:00 09/03/17 08:59 Future hold Aspirin (Ecotrin Tab) 81 mg QAM PO 08/04/17 09:00 09/03/17 08:59 08/05/17 09:32 81 MG Atorvastatin Calcium (Lipitor Tab) 40 mg QAM PO 08/03/17 18:30 09/02/17 18:29 08/05/17 09:32 40 MG Acetaminophen 650 mg/Empty Bag 65 ml @ 260 mls/hr Q6H PRN IV 08/03/17 20:30 1/26/18 20:29 08/04/17 17:35 260 MLS/HR Levofloxacin (Consult) 1 ea DAILY PRN N/A 08/03/17 21:16 09/02/17 21:15 Piperacillin Sod/ Tazobactam Sod (Consult) 1 ea UD PRN N/A 08/03/17 21:30 09/02/17 21:29 Piperacillin Sod/ Tazobactam Sod 4.5 gm/Dextrose 70 ml @ 17.5 mls/hr Q8H IV 08/04/17 03:00 08/11/17 02:59 08/05/17 03:12 17.5 MLS/HR Vancomycin HCl (Consult) 1 ea UD PRN N/A 08/03/17 23:00 09/02/17 22:59 Ipratropium [place] (Atrovent 0.02% 0.5MG/2.5ML Neb) 0.5 mg Q6R INH 08/04/17 03:00 09/03/17 02:59 08/05/17 07:15 0.5 MG Levalbuterol (Xopenex 1.25MG/ 0.5ML Neb) 1.25 mg Q6R INH 08/04/17 03:00 09/03/17 02:59 08/05/17 07:15 1.25 MG Ipratropium [place] (Atrovent 0.02% 0.5MG/2.5ML Neb) 0.5 mg Q4H PRN INH 08/03/17 23:45 09/02/17 23:44 08/03/17 23:40 0.5 MG Levalbuterol (Xopenex 1.25MG/ 0.5ML Neb) 1.25 mg Q4H PRN INH 08/03/17 23:45 09/02/17 23:44 08/03/17 23:40 1.25 MG Norepinephrine Bitartrate 8 mg/ Dextrose 508 ml @ 0 mls/hr Q0M PRN IV 08/04/17 02:55 09/03/17 02:54 Levofloxacin 750 mg/Prmx 150 ml @ 100 mls/hr Q48H IV 08/05/17 22:00 08/12/17 21:59 Fentanyl (Duragesic Patch) 50 mcg Q72H TD 08/04/17 13:00 08/18/17 12:59 08/04/17 16:14 50 MCG Miscellaneous (Fentanyl Patch Remove & Waste) 1 ea Q72H N/A 08/07/17 12:59 09/06/17 12:58 Miscellaneous Information (Check Fentanyl Patch Placement) 1 ea QS N/A 08/04/17 16:00 09/03/17 15:59 08/05/17 08:00 1 EA Heparin Sodium (Porcine) (Heparin 10 Unit/ ml 5 ml Flush) 5 ml PRN PRN FLUSH 08/05/17 00:30 09/04/17 00:29 Vancomycin HCl 1250 mg/Sodium Chloride 275 ml @ 125 mls/hr Q24H IV 08/06/17 04:00 08/09/17 23:59 Warfarin Sodium (Coumadin Tab) 2.5 mg DAILY@16 PO 08/05/17 16:00 09/04/17 15:59 Pantoprazole Sodium (Protonix Tab) 40 mg QAM PO 08/05/17 11:00 08/08/17 09:01 Insulin Aspart (novoLOG ASPART) SLIDING SCALE ACHS SC 08/05/17 11:00 09/04/17 10:59 Vital Signs: Date Time Temp Pulse Resp B/P (MAP) Pulse Ox O2 Delivery O2 Flow Rate FiO2 08/05/17 10:00 94 19 123/67 (85) 96 Nasal Cannula 2.0 08/05/17 08:00 Nasal Cannula 2.0 08/05/17 08:00 36.5 94 25 107/55 (72) 96 Nasal Cannula 2.0 08/05/17 07:17 85 19 97 Nasal Cannula 2.0 08/05/17 06:00 88 17 105/59 (74) 96 Nasal Cannula 2.0 08/05/17 05:30 81 16 99/60 (73) 94 08/05/17 05:15 87 21 97/54 (68) 97 08/05/17 05:00 77 16 91/51 (64) 97 08/05/17 04:45 87 22 95/53 (67) 98 08/05/17 04:30 88 15 98/62 (74) 97 08/05/17 04:15 86 14 116/65 (82) 96 08/05/17 04:00 BiPAP 30 08/05/17 04:00 36.4 94 15 120/73 (89) 96 CPAP 30 08/05/17 03:45 83 18 123/69 (87) 97 08/05/17 03:30 91 18 105/64 (78) 96 08/05/17 03:15 92 20 95/58 (70) 96 08/05/17 03:00 92 16 102/54 (70) 95 08/05/17 02:45 93 18 104/58 (73) 96 08/05/17 02:30 90 16 109/59 (76) 95 08/05/17 02:15 88 18 100/50 (67) 95 08/05/17 02:00 89 18 91/51 (64) 95 BiPAP 30 08/05/17 01:47 85 95 30 08/05/17 01:46 85 16 95 BiPAP/CPAP 30 08/05/17 01:45 84 17 83/47 (59) 97 08/05/17 01:30 83 18 90/51 (64) 95 08/05/17 01:15 88 25 91/50 (64) 94 08/05/17 01:00 83 16 83/50 (61) 94 08/05/17 00:45 83 16 87/50 (62) 94 08/05/17 00:30 86 19 92/55 (67) 95 08/05/17 00:15 83 16 87/45 (59) 95 08/05/17 00:00 36.5 83 16 91/48 (62) 95 BiPAP 30 08/04/17 23:59 BiPAP 30 08/04/17 23:45 87 17 87/45 (59) 95 08/04/17 23:30 85 15 92/47 (62) 95 08/04/17 23:20 85 95 30 08/04/17 23:15 88 20 101/55 (70) 95 08/04/17 23:00 91 20 98/58 (71) 94 08/04/17 22:45 92 16 100/56 (71) 94 08/04/17 22:30 90 17 87/45 (59) 93 08/04/17 22:15 84 19 83/44 (57) 94 08/04/17 22:00 89 15 89/43 (58) 93 08/04/17 21:30 90 18 91/43 (59) 94 08/04/17 21:15 103 22 83/54 (64) 94 08/04/17 21:00 86 26 99/55 (70) 95 08/04/17 20:45 91 25 100/60 (73) 94 08/04/17 20:30 97 23 99/61 (74) 93 08/04/17 20:16 95 26 109/66 (80) 92 08/04/17 20:00 Nasal Cannula 2.0 08/04/17 20:00 36.7 90 22 107/67 (80) 96 Nasal Cannula 2.0 08/04/17 19:45 85 17 97/48 (64) 94 08/04/17 19:30 86 16 93/50 (64) 94 08/04/17 19:15 84 18 82/48 (59) 93 08/04/17 19:00 79 19 71/43 (52) 97 08/04/17 18:55 87 18 94 Nasal Cannula 2.0 08/04/17 18:00 100 26 118/68 (85) 97 Nasal Cannula 2.0 08/04/17 16:00 36.9 82 26 102/56 (71) 97 Nasal Cannula 2.0 08/04/17 16:00 Nasal Cannula 2.0 08/04/17 14:24 86 17 95 Nasal Cannula 2.0 08/04/17 14:00 79 16 95/48 (64) 98 Nasal Cannula 2.0 08/04/17 12:57 73 18 77/46 (56) 95 Nasal Cannula 2.0 08/04/17 12:49 79 16 79/40 (53) 96 Nasal Cannula 2.0 08/04/17 12:45 76 14 79/36 (50) 93 Nasal Cannula 2.0 08/04/17 12:00 Nasal Cannula 4.0 08/04/17 12:00 37.1 83 25 95/54 (68) 98 Nasal Cannula 4.0 Laboratory Results: Last 24 Hours Test 08/04/17 12:38 08/04/17 13:00 08/04/17 14:58 08/04/17 15:58 Bedside Glucose 158 mg/dl Activated Partial Thromboplast Time 234.8 SECONDS 178.1 SECONDS 104.9 SECONDS Partial Thromboplastin Ratio 8.8 6.9 4.0 Test 08/04/17 17:00 08/04/17 17:41 08/04/17 18:01 08/04/17 20:35 Activated Partial Thromboplast Time 71.3 SECONDS Partial Thromboplastin Ratio 2.7 Procalcitonin 7.41 ng/ml Bedside Glucose 134 mg/dl Lactic Acid Level 2.5 mmol/L Bedside Glucose (other) 145 mg/dl Test 08/04/17 23:03 08/04/17 23:49 08/05/17 00:10 08/05/17 01:08 Lactic Acid Level 1.8 mmol/L Activated Partial Thromboplast Time 143.1 SECONDS Partial Thromboplastin Ratio 5.5 Random Vancomycin Level 13.3 mcg/ml Bedside Glucose (other) 163 mg/dl Test 08/05/17 01:47 08/05/17 03:30 08/05/17 05:14 08/05/17 08:00 Activated Partial Thromboplast Time 86.0 SECONDS 81.1 SECONDS Partial Thromboplastin Ratio 3.3 3.1 Troponin I 19.300 ng/ml Bedside Glucose (other) 151 mg/dl White Blood Count 25.48 K/uL Red Blood Count 2.92 M/uL Hemoglobin 9.3 g/dL Hematocrit 29.1 % Mean Corpuscular Volume 99.7 fL Mean Corpuscular Hemoglobin 31.8 pg Mean Corpuscular Hemoglobin Concent 32.0 g/dl Platelet Count 242 K/uL Mean Platelet Volume 9.2 fL Neutrophils (%) (Auto) 75.4 % Lymphocytes (%) (Auto) 18.1 % Monocytes (%) (Auto) 5.9 % Eosinophils (%) (Auto) 0.0 % Basophils (%) (Auto) 0.1 % Neutrophils # (Auto) 19.19 K/uL Lymphocytes # (Auto) 4.62 K/uL Monocytes # (Auto) 1.51 K/uL Eosinophils # (Auto) 0.00 K/uL Basophils # (Auto) 0.02 K/uL RDW Standard Deviation 59.7 fL RDW Coefficient of Variation 16.4 % Immature Granulocyte % (Auto) 0.5 % Immature Granulocyte # (Auto) 0.14 K/uL Nucleated RBC Absolute Count (auto) 0.04 K/uL Nucleated Red Blood Cells % 0.1 % Prothrombin Time 20.3 SECONDS Prothromb Time International Ratio 2.0 Sodium Level 139 mmol/L Potassium Level 3.5 mmol/L Chloride Level 103 mmol/L Carbon Dioxide Level 29 mmol/L Anion Gap 7.0 mmol/L Blood Urea Nitrogen 74 mg/dl Creatinine 1.81 mg/dl Est Creatinine Clear Calc Drug Dose 33.1 ml/min Estimated GFR () 38.4 Estimated GFR (Non- 33.1 BUN/Creatinine Ratio 40.8 Random Glucose 140 mg/dl Lactic Acid Level 1.7 mmol/L Calcium Level 8.0 mg/dl Phosphorus Level 4.0 mg/dl Magnesium Level 2.7 mg/dl Procalcitonin 6.04 ng/ml Test 08/05/17 09:43 Troponin I 15.200 ng/ml
[2017-08-05] MEDS: PANTOprazole SOD 40 MG TAB PO SCH (12:35)
--- NOTE | 2017-08-05 13:36 | Palliative Care Consultation ---
Consultation Date of Consultation: Aug 05, 2017. Requesting Physician: Dr. Cheney Attending Physician: Dr. Gutierrez Reason for Consultation: POLST form History of Present Illness This 86 year old male patient presented to the ED two days ago with acute inferior wall [place]. Given his extensive history including CLL, hemolytic anemia, right sided heart failure, severe mixed valvular heart disease, pulmonary hypertension, and cor pulmonale, he was not a candidate to be taken to the cardiac catheterization lab. Patient was admitted to ICU for medical management. After discussion between family and ICU team, patient was made a DNR /DNI in the case of cardiac or respiratory arrest. They have asked palliative care to come and complete a POLST form reflecting patient and family's wishes. Past Medical/Surgical History Medical History: Pulmonary emboli on Coumadin Severe pulmonary hypertension Cor pulmonale Right heart failure Severe aortic regurgitation Severe mitral regurg Moderate tricuspid regurg EF 40-45% Hemolytic anemia Chronic lymphocytic anemia CKD Mild dementia/cognitive impairment Social History Smoking Status: Former Smoker History of Alcohol Use: No Marital Status: Housing Status: lives with family Review of Systems Constitutional: + weakness ENT: No trouble swallowing Respiratory: No cough, No shortness of breath Cardiac: No chest pain Abdomen: No pain, No nausea, No vomiting Musculoskeletal: + problem reported (right arm/shoulder pain) Psychiatric: No anxiety Allergies Coded Allergies: No Known Allergies (Unverified , 08/03/17) Medications Current Inpatient Medications Medications (Trade) Dose Ordered Sig/Pb Route Start Time Stop Time Status Last Admin Dose Admin Acetaminophen (Tylenol Tab) 650 mg Q4H PRN PO 08/03/17 15:30 09/02/17 15:29 Ondansetron HCl (Zofran Inj) 4 mg Q6H PRN IV 08/03/17 15:30 09/02/17 15:29 Cholecalciferol (Vitamin D Tab) 400 inter.unit DAILY PO 08/04/17 09:00 09/03/17 08:59 Future hold 08/05/17 09:33 400 INTER.UNIT Cyanocobalamin (Vitamin B-12 Tab) 1,000 mcg DAILY PO 08/04/17 09:00 09/03/17 08:59 Future hold 08/05/17 09:32 1,000 MCG Fish Oil ([place]-3 (Purified Fish Oil) Cap) 1 gm DAILY PO 08/04/17 09:00 09/03/17 08:59 Future hold 08/05/17 09:35 1 GM Gabapentin (Neurontin Cap) 100 mg TID PO 08/03/17 21:00 09/02/17 20:59 Future hold 08/05/17 09:35 100 MG Lidocaine (Lidoderm Patch 5%) 1 patch DAILY TD 08/04/17 09:00 09/03/17 08:59 08/05/17 09:33 1 PATCH Metoprolol Succinate (Toprol Xl Tab) 12.5 mg DAILY PO 08/04/17 09:00 09/03/17 08:59 Future hold Multivitamins/ Minerals (Multivitamin W/ Minerals Tab) 1 tab DAILY PO 08/04/17 09:00 09/03/17 08:59 Future hold 08/05/17 09:33 1 TAB Oxycodone/ Acetaminophen (Percocet 10-325MG Tab) 2 tab Q6H PRN PO 08/03/17 16:45 08/17/17 16:44 Future hold 08/05/17 09:31 2 TAB Prednisone (PredniSONE TAB) 5 mg DAILY PO 08/04/17 09:00 09/03/17 08:59 Future hold 08/05/17 09:33 5 MG Valacyclovir HCl (Valtrex Tab) 500 mg DAILY PO 08/04/17 09:00 09/03/17 08:59 Future hold 08/05/17 09:33 500 MG Folic Acid (Folvite Tab) 800 mcg DAILY PO 08/04/17 09:00 09/03/17 08:59 Future hold 08/05/17 09:33 800 MCG Miscellaneous (Remove Lidoderm Patch) 1 ea DAILY@21 N/A 08/03/17 21:00 09/02/17 20:59 08/04/17 20:34 1 EA Torsemide (Demadex Tab) 40 mg QAM PO 08/04/17 09:00 09/03/17 08:59 Future hold Aspirin (Ecotrin Tab) 81 mg QAM PO 08/04/17 09:00 09/03/17 08:59 08/05/17 09:32 81 MG Atorvastatin Calcium (Lipitor Tab) 40 mg QAM PO 08/03/17 18:30 09/02/17 18:29 08/05/17 09:32 40 MG Acetaminophen 650 mg/Empty Bag 65 ml @ 260 mls/hr Q6H PRN IV 08/03/17 20:30 09/02/17 20:29 08/04/17 17:35 260 MLS/HR Levofloxacin (Consult) 1 ea DAILY PRN N/A 08/03/17 21:16 09/02/17 21:15 Piperacillin Sod/ Tazobactam Sod (Consult) 1 ea UD PRN N/A 08/03/17 21:30 09/02/17 21:29 Piperacillin Sod/ Tazobactam Sod 4.5 gm/Dextrose 70 ml @ 17.5 mls/hr Q8H IV 08/04/17 03:00 08/11/17 02:59 08/05/17 11:57 17.5 MLS/HR Vancomycin HCl (Consult) 1 ea UD PRN N/A 08/03/17 23:00 09/02/17 22:59 Ipratropium [place] (Atrovent 0.02% 0.5MG/2.5ML Neb) 0.5 mg Q6R INH 08/04/17 03:00 09/03/17 02:59 08/05/17 07:15 0.5 MG Levalbuterol (Xopenex 1.25MG/ 0.5ML Neb) 1.25 mg Q6R INH 08/04/17 03:00 09/03/17 02:59 08/05/17 07:15 1.25 MG Ipratropium [place] (Atrovent 0.02% 0.5MG/2.5ML Neb) 0.5 mg Q4H PRN INH 08/03/17 23:45 09/02/17 23:44 08/03/17 23:40 0.5 MG Levalbuterol (Xopenex 1.25MG/ 0.5ML Neb) 1.25 mg Q4H PRN INH 08/03/17 23:45 09/02/17 23:44 08/03/17 23:40 1.25 MG Norepinephrine Bitartrate 8 mg/ Dextrose 508 ml @ 0 mls/hr Q0M PRN IV 08/04/17 02:55 09/03/17 02:54 Levofloxacin 750 mg/Prmx 150 ml @ 100 mls/hr Q48H IV 08/05/17 22:00 08/12/17 21:59 Fentanyl (Duragesic Patch) 50 mcg Q72H TD 08/04/17 13:00 08/18/17 12:59 08/04/17 16:14 50 MCG Miscellaneous (Fentanyl Patch Remove & Waste) 1 ea Q72H N/A 08/07/17 12:59 09/06/17 12:58 Miscellaneous Information (Check Fentanyl Patch Placement) 1 ea QS N/A 08/04/17 16:00 09/03/17 15:59 08/05/17 08:00 1 EA Heparin Sodium (Porcine) (Heparin 10 Unit/ ml 5 ml Flush) 5 ml PRN PRN FLUSH 08/05/17 00:30 09/04/17 00:29 Vancomycin HCl 1250 mg/Sodium Chloride 275 ml @ 125 mls/hr Q24H IV 08/06/17 04:00 08/09/17 23:59 Warfarin Sodium (Coumadin Tab) 2.5 mg DAILY@16 PO 08/05/17 16:00 09/04/17 15:59 Pantoprazole Sodium (Protonix Tab) 40 mg QAM PO 08/05/17 11:00 08/08/17 09:01 08/05/17 12:35 40 MG Insulin Aspart (novoLOG ASPART) SLIDING SCALE ACHS SC 08/05/17 11:00 09/04/17 10:59 08/05/17 12:37 4 UNITS Physical Exam Date Time Temp Pulse Resp B/P (MAP) Pulse Ox O2 Delivery O2 Flow Rate FiO2 08/05/17 12:00 36.8 93 24 99/58 (72) 94 Nasal Cannula 2.0 08/05/17 12:00 Nasal Cannula 2.0 08/05/17 10:00 94 19 123/67 (85) 96 Nasal Cannula 2.0 08/05/17 08:00 Nasal Cannula 2.0 08/05/17 08:00 36.5 94 25 107/55 (72) 96 Nasal Cannula 2.0 08/05/17 08:00 Nasal Cannula 08/05/17 07:17 85 19 97 Nasal Cannula 2.0 08/05/17 06:00 88 17 105/59 (74) 96 Nasal Cannula 2.0 08/05/17 05:30 81 16 99/60 (73) 94 08/05/17 05:15 87 21 97/54 (68) 97 08/05/17 05:00 77 16 91/51 (64) 97 08/05/17 04:45 87 22 95/53 (67) 98 08/05/17 04:30 88 15 98/62 (74) 97 08/05/17 04:15 86 14 116/65 (82) 96 08/05/17 04:00 BiPAP 30 08/05/17 04:00 36.4 94 15 120/73 (89) 96 CPAP 30 08/05/17 03:45 83 18 123/69 (87) 97 08/05/17 03:30 91 18 105/64 (78) 96 08/05/17 03:15 92 20 95/58 (70) 96 08/05/17 03:00 92 16 102/54 (70) 95 08/05/17 02:45 93 18 104/58 (73) 96 08/05/17 02:30 90 16 109/59 (76) 95 08/05/17 02:15 88 18 100/50 (67) 95 08/05/17 02:00 89 18 91/51 (64) 95 BiPAP 30 08/05/17 01:47 85 95 30 08/05/17 01:46 85 16 95 BiPAP/CPAP 30 08/05/17 01:45 84 17 83/47 (59) 97 08/05/17 01:30 83 18 90/51 (64) 95 08/05/17 01:15 88 25 91/50 (64) 94 08/05/17 01:00 83 16 83/50 (61) 94 08/05/17 00:45 83 16 87/50 (62) 94 08/05/17 00:30 86 19 92/55 (67) 95 08/05/17 00:15 83 16 87/45 (59) 95 08/05/17 00:00 36.5 83 16 91/48 (62) 95 BiPAP 30 08/04/17 23:59 BiPAP 30 08/04/17 23:45 87 17 87/45 (59) 95 08/04/17 23:30 85 15 92/47 (62) 95 08/04/17 23:20 85 95 30 08/04/17 23:15 88 20 101/55 (70) 95 08/04/17 23:00 91 20 98/58 (71) 94 08/04/17 22:45 92 16 100/56 (71) 94 08/04/17 22:30 90 17 87/45 (59) 93 08/04/17 22:15 84 19 83/44 (57) 94 08/04/17 22:00 89 15 89/43 (58) 93 08/04/17 21:30 90 18 91/43 (59) 94 08/04/17 21:15 103 22 83/54 (64) 94 08/04/17 21:00 86 26 99/55 (70) 95 08/04/17 20:45 91 25 100/60 (73) 94 08/04/17 20:30 97 23 99/61 (74) 93 08/04/17 20:16 95 26 109/66 (80) 92 08/04/17 20:00 Nasal Cannula 2.0 08/04/17 20:00 36.7 90 22 107/67 (80) 96 Nasal Cannula 2.0 08/04/17 19:45 85 17 97/48 (64) 94 08/04/17 19:30 86 16 93/50 (64) 94 08/04/17 19:15 84 18 82/48 (59) 93 08/04/17 19:00 79 19 71/43 (52) 97 08/04/17 18:55 87 18 94 Nasal Cannula 2.0 08/04/17 18:00 100 26 118/68 (85) 97 Nasal Cannula 2.0 08/04/17 16:00 36.9 82 26 102/56 (71) 97 Nasal Cannula 2.0 08/04/17 16:00 Nasal Cannula 2.0 08/04/17 14:24 86 17 95 Nasal Cannula 2.0 08/04/17 14:00 79 16 95/48 (64) 98 Nasal Cannula 2.0 General Appearance: WD/WN, no apparent distress ENT: hearing grossly normal Neck: supple, no JVD Respiratory: no respiratory distress, no accessory muscle use, + pertinent finding (nasal cannula) Cardiovascular: regular rate, rhythm (per telemetry) Abdomen: + pertinent finding (did not assess abdomen) Neurologic/Psychiatric: alert, normal mood/affect, oriented x 3 (mildly forgetful) Skin: normal color Laboratory Results Last 24 Hours Test 08/04/17 14:58 08/04/17 15:58 08/04/17 17:00 08/04/17 17:41 Activated Partial Thromboplast Time 178.1 SECONDS 104.9 SECONDS 71.3 SECONDS Partial Thromboplastin Ratio 6.9 4.0 2.7 Procalcitonin 7.41 ng/ml Bedside Glucose 134 mg/dl Test 08/04/17 18:01 08/04/17 20:35 08/04/17 23:03 08/04/17 23:49 Lactic Acid Level 2.5 mmol/L 1.8 mmol/L Bedside Glucose (other) 145 mg/dl Activated Partial Thromboplast Time 143.1 SECONDS Partial Thromboplastin Ratio 5.5 Test 08/05/17 00:10 08/05/17 01:08 08/05/17 01:47 08/05/17 03:30 Random Vancomycin Level 13.3 mcg/ml Bedside Glucose (other) 163 mg/dl 151 mg/dl Activated Partial Thromboplast Time 86.0 SECONDS Partial Thromboplastin Ratio 3.3 Troponin I 19.300 ng/ml Test 08/05/17 05:14 08/05/17 08:00 08/05/17 09:43 08/05/17 11:21 White Blood Count 25.48 K/uL Red Blood Count 2.92 M/uL Hemoglobin 9.3 g/dL Hematocrit 29.1 % Mean Corpuscular Volume 99.7 fL Mean Corpuscular Hemoglobin 31.8 pg Mean Corpuscular Hemoglobin Concent 32.0 g/dl Platelet Count 242 K/uL Mean Platelet Volume 9.2 fL Neutrophils (%) (Auto) 75.4 % Lymphocytes (%) (Auto) 18.1 % Monocytes (%) (Auto) 5.9 % Eosinophils (%) (Auto) 0.0 % Basophils (%) (Auto) 0.1 % Neutrophils # (Auto) 19.19 K/uL Lymphocytes # (Auto) 4.62 K/uL Monocytes # (Auto) 1.51 K/uL Eosinophils # (Auto) 0.00 K/uL Basophils # (Auto) 0.02 K/uL RDW Standard Deviation 59.7 fL RDW Coefficient of Variation 16.4 % Immature Granulocyte % (Auto) 0.5 % Immature Granulocyte # (Auto) 0.14 K/uL Nucleated RBC Absolute Count (auto) 0.04 K/uL Nucleated Red Blood Cells % 0.1 % Prothrombin Time 20.3 SECONDS Prothromb Time International Ratio 2.0 Sodium Level 139 mmol/L Potassium Level 3.5 mmol/L Chloride Level 103 mmol/L Carbon Dioxide Level 29 mmol/L Anion Gap 7.0 mmol/L Blood Urea Nitrogen 74 mg/dl Creatinine 1.81 mg/dl Est Creatinine Clear Calc Drug Dose 33.1 ml/min Estimated GFR () 38.4 Estimated GFR (Non- 33.1 BUN/Creatinine Ratio 40.8 Random Glucose 140 mg/dl Lactic Acid Level 1.7 mmol/L Calcium Level 8.0 mg/dl Phosphorus Level 4.0 mg/dl Magnesium Level 2.7 mg/dl Procalcitonin 6.04 ng/ml Activated Partial Thromboplast Time 81.1 SECONDS Partial Thromboplastin Ratio 3.1 Troponin I 15.200 ng/ml Bedside Glucose 195 mg/dl Assessment & Plan Problem list: Right arm/shoulder pain, chronic Acute inferior wall AL Severe mixed valvular heart disease CHF Severe pulmonary hypertension Hx CLL, hemolytic anemia, and CKD Goals of care (Z51.5) Palliative care plan: -POLST form explained and discussed with patient, patient's , Sandrita, and daughter, Shital. -POLST completed as follows: DNR, limited additional interventions with additional order "intensive care unit okay if indicated," abx if life can be prolonged, and trial period of IV hydration but NO feeding tube. -Patient and family are okay with continuing current medical management and would be okay with coming back to the hospital for similar treatment if this occurred again. -When patient is end-stage, he does have a living will that reflects his wishes at that point. He does not feel he is there yet. -Discharge plan is uncertain at this time. PT/OT is ordered now that patient is more stable. May need rehab/SNF stay post-hospitalization. Thank you kindly for this consult. Please contact me with any further palliative care needs.
[2017-08-05] MEDS: WARFARIN SOD 2.5 MG TAB PO SCH (15:45)
--- NOTE | 2017-08-05 18:46 | Progress Note ---
Internal Med Progress Note Date of Service: Aug 05, 2017. Provider Documentation: SUBJECTIVE: Patient seen and examined at bedside. Patient is transferred from ICU to telemetry. Patient speaking. No chest pain. No shortness of breath OBJECTIVE: General- no acute distress Eyes- EOMI Neck- IV access of right neck Lungs- fair air entry, no wheezes Heart- Regular rate Abdomen- non tender, normal bowel sounds, Extremities- left arm with peripheral IV ASSESSMENT & PLAN: This is a 86 year old M admitted to ICU level of care after acute Inferior wall [place] and was on IV heparin Patient transferred to telemetry banda on 08/05/17, ICU physician discontinued heparin IV and started warfarin with first dose of warfarin 2.5 mg given Patient's maximum troponins on the admission was 28 and has now downtrended to 15.2 on repeat labs on 07/26.17 Has Right Internal Jugular central line, will likely need this central line removed, will discontinue tomorrow after ensuring patient has adequate IV access and that patient is stable overnight Atrial Fibrillation. Rate controlled - heart rate now in the 80s CHF/CAD: aspirin, atorvastatin, anticoagulation Cardiogenic shock vs Septic Shock Patient has been off IV Norepinephrine since the AM of 08/05/17 Possible of Pneumonia/Sepsis: broad spectrum IV antibiotics Zosyn and Levaquin and Vancomycin. Urine culture negative from 08/03/17, Blood culture negative from 08/03/17, Sputum Culture LIGHT NORMAL MARÍA ELENA Present CXR on 08/05/17 1. Cardiomegaly without radiographic evidence of congestive failure. 2. Dense airspace consolidation is again seen at the left lung base remains typical appearance for pneumonia. Continued follow-up to resolution is recommended. 3. Small pleural effusions Will consider de-escalating antibiotics starting tomorrow if patient does not have overnight events of fever Code Status is DNR/DNI Family information: [phone] Disposition: Patient to remain on ICU level of care until hemodynamically stable without pressors Vital Signs: Date Time Temp Pulse Resp B/P (MAP) Pulse Ox O2 Delivery O2 Flow Rate FiO2 08/05/17 16:00 36.6 89 16 111/63 (79) 95 Nasal Cannula 2.0 08/05/17 16:00 Nasal Cannula 2.0 08/05/17 14:10 88 17 96 Nasal Cannula 2.0 08/05/17 14:00 91 18 104/59 (74) 93 Nasal Cannula 2.0 08/05/17 12:00 36.8 93 24 99/58 (72) 94 Nasal Cannula 2.0 08/05/17 12:00 Nasal Cannula 2.0 08/05/17 10:00 94 19 123/67 (85) 96 Nasal Cannula 2.0 08/05/17 08:00 Nasal Cannula 2.0 08/05/17 08:00 36.5 94 25 107/55 (72) 96 Nasal Cannula 2.0 08/05/17 08:00 Nasal Cannula 08/05/17 07:17 85 19 97 Nasal Cannula 2.0 08/05/17 06:00 88 17 105/59 (74) 96 Nasal Cannula 2.0 08/05/17 05:30 81 16 99/60 (73) 94 08/05/17 05:15 87 21 97/54 (68) 97 08/05/17 05:00 77 16 91/51 (64) 97 08/05/17 04:45 87 22 95/53 (67) 98 08/05/17 04:30 88 15 98/62 (74) 97 08/05/17 04:15 86 14 116/65 (82) 96 08/05/17 04:00 BiPAP 30 08/05/17 04:00 36.4 94 15 120/73 (89) 96 CPAP 30 08/05/17 03:45 83 18 123/69 (87) 97 08/05/17 03:30 91 18 105/64 (78) 96 08/05/17 03:15 92 20 95/58 (70) 96 08/05/17 03:00 92 16 102/54 (70) 95 08/05/17 02:45 93 18 104/58 (73) 96 08/05/17 02:30 90 16 109/59 (76) 95 08/05/17 02:15 88 18 100/50 (67) 95 08/05/17 02:00 89 18 91/51 (64) 95 BiPAP 30 08/05/17 01:47 85 95 30 08/05/17 01:46 85 16 95 BiPAP/CPAP 30 08/05/17 01:45 84 17 83/47 (59) 97 08/05/17 01:30 83 18 90/51 (64) 95 08/05/17 01:15 88 25 91/50 (64) 94 08/05/17 01:00 83 16 83/50 (61) 94 08/05/17 00:45 83 16 87/50 (62) 94 08/05/17 00:30 86 19 92/55 (67) 95 08/05/17 00:15 83 16 87/45 (59) 95 08/05/17 00:00 36.5 83 16 91/48 (62) 95 BiPAP 30 08/04/17 23:59 BiPAP 30 08/04/17 23:45 87 17 87/45 (59) 95 08/04/17 23:30 85 15 92/47 (62) 95 08/04/17 23:20 85 95 30 08/04/17 23:15 88 20 101/55 (70) 95 08/04/17 23:00 91 20 98/58 (71) 94 08/04/17 22:45 92 16 100/56 (71) 94 08/04/17 22:30 90 17 87/45 (59) 93 08/04/17 22:15 84 19 83/44 (57) 94 08/04/17 22:00 89 15 89/43 (58) 93 08/04/17 21:30 90 18 91/43 (59) 94 08/04/17 21:15 103 22 83/54 (64) 94 08/04/17 21:00 86 26 99/55 (70) 95 08/04/17 20:45 91 25 100/60 (73) 94 08/04/17 20:30 97 23 99/61 (74) 93 08/04/17 20:16 95 26 109/66 (80) 92 08/04/17 20:00 Nasal Cannula 2.0 08/04/17 20:00 36.7 90 22 107/67 (80) 96 Nasal Cannula 2.0 08/04/17 19:45 85 17 97/48 (64) 94 08/04/17 19:30 86 16 93/50 (64) 94 08/04/17 19:15 84 18 82/48 (59) 93 08/04/17 19:00 79 19 71/43 (52) 97 08/04/17 18:55 87 18 94 Nasal Cannula 2.0 Lab Results: Results Past 24 Hours Test 08/04/17 20:35 08/04/17 23:03 08/04/17 23:49 08/05/17 00:10 Range/Units Bedside Glucose (other) 145 70-99 mg/dl Lactic Acid Level 1.8 0.4-2.0 mmol/L Activated Partial Thromboplast Time 143.1 21.0-31.0 SECONDS Partial Thromboplastin Ratio 5.5 Random Vancomycin Level 13.3 mcg/ml Test 08/05/17 01:08 08/05/17 01:47 08/05/17 03:30 08/05/17 05:14 Range/Units Bedside Glucose (other) 163 151 70-99 mg/dl Activated Partial Thromboplast Time 86.0 21.0-31.0 SECONDS Partial Thromboplastin Ratio 3.3 Troponin I 19.300 0-0.045 ng/ml White Blood Count 25.48 4.8-10.8 K/uL Red Blood Count 2.92 4.7-6.1 M/uL Hemoglobin 9.3 14.0-18.0 g/dL Hematocrit 29.1 42-52 % Mean Corpuscular Volume 99.7 80-100 fL Mean Corpuscular Hemoglobin 31.8 25-34 pg Mean Corpuscular Hemoglobin Concent 32.0 32-36 g/dl Platelet Count 242 130-400 K/uL Mean Platelet Volume 9.2 7.4-10.4 fL Neutrophils (%) (Auto) 75.4 % Lymphocytes (%) (Auto) 18.1 % Monocytes (%) (Auto) 5.9 % Eosinophils (%) (Auto) 0.0 % Basophils (%) (Auto) 0.1 % Neutrophils # (Auto) 19.19 1.4-6.5 K/uL Lymphocytes # (Auto) 4.62 1.2-3.4 K/uL Monocytes # (Auto) 1.51 0.11-0.59 K/uL Eosinophils # (Auto) 0.00 0-0.5 K/uL Basophils # (Auto) 0.02 0-0.2 K/uL RDW Standard Deviation 59.7 36.4-46.3 fL RDW Coefficient of Variation 16.4 11.5-14.5 % Immature Granulocyte % (Auto) 0.5 % Immature Granulocyte # (Auto) 0.14 0.00-0.02 K/uL Nucleated RBC Absolute Count (auto) 0.04 0-0 K/uL Nucleated Red Blood Cells % 0.1 % Prothrombin Time 20.3 9.0-12.0 SECONDS Prothromb Time International Ratio 2.0 0.9-1.1 Sodium Level 139 136-145 mmol/L Potassium Level 3.5 3.5-5.1 mmol/L Chloride Level 103 98-107 mmol/L Carbon Dioxide Level 29 21-32 mmol/L Anion Gap 7.0 3-11 mmol/L Blood Urea Nitrogen 74 7-18 mg/dl Creatinine 1.81 0.60-1.40 mg/dl Est Creatinine Clear Calc Drug Dose 33.1 ml/min Estimated GFR () 38.4 Estimated GFR (Non- 33.1 BUN/Creatinine Ratio 40.8 10-20 Random Glucose 140 70-99 mg/dl Lactic Acid Level 1.7 0.4-2.0 mmol/L Calcium Level 8.0 8.5-10.1 mg/dl Phosphorus Level 4.0 2.5-4.9 mg/dl Magnesium Level 2.7 1.8-2.4 mg/dl Procalcitonin 6.04 0-0.5 ng/ml Test 08/05/17 08:00 08/05/17 09:43 08/05/17 11:21 08/05/17 16:08 Range/Units Activated Partial Thromboplast Time 81.1 21.0-31.0 SECONDS Partial Thromboplastin Ratio 3.1 Troponin I 15.200 0-0.045 ng/ml Bedside Glucose 195 139 70-99 mg/dl Test 08/05/17 17:53 Range/Units Troponin I 15.200 0-0.045 ng/ml
[2017-08-05] MEDS: ACETAMINOPHEN 325 MG TAB PO PRN (20:08)
[2017-08-05] MEDS ORDERED: LEVOFLOXACIN 750MG / D5W IV SCH (22:00)
[2017-08-06] VITALS (11 sets, daily range): BP systolic 84–109; BP diastolic 59–68; PULSE 84–101; TEMP 36.3–36.7; O2SAT 91–100
[2017-08-06] MEDS: IPRATROPIUM BROMIDE NEB SOLN 0.02% 2.5 ML VIAL INH SCH ×4 (01:41→19:06)
[2017-08-06] MEDS: LEVALBUTEROL 1.25MG/0.5ML NEB INH SCH ×4 (01:41→19:06)
[2017-08-06] MEDS: PIPERACILL/TAZOBAC IV 4.5 GM in DEXTROSE 5% 50ML 50 ML IV SCH (02:51)
[2017-08-06] MEDS ORDERED: VANCOMYCIN INJ 1,250 MG in SODIUM CHLORIDE 0.9% 250ML 250 ML IV SCH (04:00)
[2017-08-06 06:16] LABS: HEMATOCRIT 31.9 % (42-52); HEMOGLOBIN 9.9 g/dL (14.0-18.0); MEAN CELL VOLUME 101.9 fL (80-100); MEAN CORPUSCULAR HEMOGLOBIN 31.6 pg (25-34); MEAN PLATELET VOLUME 9.7 fL (7.4-10.4); NUCLEATED RED BLOOD CELL ABS 0.14 K/uL (0-0); PLATELET COUNT 250 K/uL (130-400); RED CELL DISTRIBUTION WIDTH CV 16.8 % (11.5-14.5); RED CELL DISTRIBUTION WIDTH SD 62.8 fL (36.4-46.3); WHITE BLOOD COUNT 22.49 K/uL (4.8-10.8)
[2017-08-06 06:54] LABS: ALBUMIN 2.6 gm/dl (3.4-5.0); CALCIUM 8.1 mg/dl (8.5-10.1); CREATININE 1.98 mg/dl (0.60-1.40); POTASSIUM 4.3 mmol/L (3.5-5.1); TOTAL PROTEIN 5.4 gm/dl (6.4-8.2)
[2017-08-06] MEDS: INSULIN ASPART 100 UNITS/ML 3 ML PEN SC SCH ×4 (07:00→21:18)
[2017-08-06 07:09] LABS: INR 2.6 (0.9-1.1)
[2017-08-06 07:17] LABS: BASO ABS # 0.01 K/uL (0-0.2); IG# 0.11 K/uL (0.00-0.02); LYMPH % 29.4 %; LYMPH ABS # 6.62 K/uL (1.2-3.4); MONO % 5.2 %; MONO ABS # 1.18 K/uL (0.11-0.59); NEUT % 64.9 %; NEUT ABS # 14.57 K/uL (1.4-6.5)
[2017-08-06] MEDS: OXYCODONE/ACETAMINOPHEN 10/325MG TAB PO PRN ×2 (07:54→16:00)
[2017-08-06] MEDS: ATORVASTATIN 40 MG TAB PO SCH (07:55)
[2017-08-06] MEDS: CYANOCOBALAMIN 500 MCG TAB (VIT B-12) PO SCH (07:55)
[2017-08-06] MEDS: ASPIRIN 81 MG ECTAB PO SCH (07:55)
[2017-08-06] MEDS: METOPROLOL SUCC 25MG EXT REL TAB PO SCH (07:55)
[2017-08-06] MEDS: FoLIC ACID TAB 400 MCG TAB PO SCH (07:55)
[2017-08-06] MEDS: LIDODERM (LIDOCAINE) PATCH 5% TD SCH (07:56)
[2017-08-06] MEDS: TORSEMIDE 20 MG TAB PO SCH (07:56)
[2017-08-06] MEDS: CHOLECALCIFEROL 400 INTER.UNIT TAB PO SCH (07:56)
[2017-08-06] MEDS: PANTOprazole SOD 40 MG TAB PO SCH (07:57)
[2017-08-06] MEDS: OMEGA-3 (PURIFIED FISH OIL) 1 GM CAP PO SCH (07:57)
[2017-08-06] MEDS: CHECK FENTANYL PATCH PLACEMENT SCH ×2 (07:57→15:55)
[2017-08-06] MEDS: GABAPENTIN 100 MG CAP PO SCH ×3 (07:57→21:17)
[2017-08-06] MEDS: CEROVITE ADV FORMULA TAB PO SCH (07:59)
[2017-08-06] MEDS ORDERED: FUROSEMIDE INJ 20 MG in SYRINGE 0 ML IV ONE (10:30)
--- NOTE | 2017-08-06 10:45 | DIAGNOSTIC IMAGING REPORT ---
CHEST ONE VIEW PORTABLE CLINICAL HISTORY: 86 years-old Male presenting with sob. TECHNIQUE: Portable upright AP view of the chest was obtained. COMPARISON: 08/05/2017. FINDINGS: Right internal jugular central venous catheter terminates in the lower SVC. Atherosclerosis of aortic arch. Cardiac silhouette enlarged. Interval increase in basilar predominant reticular and hazy opacities. Bilateral small pleural effusions suspected. No pneumothorax. Extensive posttraumatic deformity of the right humerus. Evidence of prior right rib fractures. Upper abdomen normal. IMPRESSION: 1. Cardiomegaly with worsening pulmonary edema and small pleural effusions. Differential considerations include aspiration/aspiration pneumonia. 2. Post traumatic deformity of the right humerus. Electronically signed by: Darrin Oshea M.D. 08/06/2017 10:44 AM Dictated Date/Time: 08/06/2017 10:42 AM
--- NOTE | 2017-08-06 10:48 | DIAGNOSTIC IMAGING REPORT ---
R HUMERUS MIN 2 VIEWS ROUTINE CLINICAL HISTORY: 86 years-old Male presenting with arm pain. TECHNIQUE: Frontal and lateral views of the right humerus were obtained. COMPARISON: Chest x-ray from 09/26/2015 and right humerus radiographs 04/23/2015. 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 The fracture plane remains visible. Mild angulation at the fracture site. Elbow joint grossly intact. No gross evidence of an elbow joint effusion. No new osseous abnormality is apparent. Osteopenia. Acromioclavicular joint congruent. 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 No convincing evidence of an acute injury. Electronically signed by: Darrin Oshea M.D. 08/06/2017 10:46 AM Dictated Date/Time: 08/06/2017 10:44 AM
--- NOTE | 2017-08-06 13:20 | Progress Note ---
Internal Med Progress Note Date of Service: Aug 06, 2017. Provider Documentation: SUBJECTIVE: Patient seen and examined at bedside. Patient denies chest pain or worsening breathing symptoms OBJECTIVE: General- no acute distress Eyes- EOMI Neck- IV access of right neck Lungs- fair air entry, no wheezes, however there are some crackles audible when patient sitting in chair Heart- Regular rate Abdomen- non tender, normal bowel sounds, Extremities- left arm with peripheral IV ASSESSMENT & PLAN: This is a 86 year old M admitted to ICU level of care after acute Inferior wall [place] and was on IV heparin for anticoagulation management rather than cardiac cath Patient's maximum troponins on the admission was 28 and has downtrended to 15.2 on repeat labs on 08/05/17 EF Ejection Fraction = <15% on 08/04/17, continue Metoprolol, monitor for hypotension Patient transferred to telemetry banda on 08/05/17, ICU physician discontinued heparin IV and started warfarin INR 2.6 on 08/06/17, continue coumadin 2.5 mg daily , trend INR CHF/CAD: aspirin, atorvastatin, anticoagulation cardiology recommendations on Post-myocardial infraction medication optimization appreciated Atrial Fibrillation. Rate controlled - heart rate now in the 80s Cardiogenic shock vs Septic Shock Patient has been off IV Norepinephrine since the AM of 08/05/17 Possible of Pneumonia/Sepsis: broad spectrum IV antibiotics Zosyn and Levaquin and Vancomycin. Urine culture negative from 08/03/17, Blood culture negative from 08/03/17, Sputum Culture LIGHT NORMAL MARÍA ELENA Present CXR on 08/06/17 Cardiomegaly with worsening pulmonary edema and small pleural effusions Has Right Internal Jugular central line from ICU and have asked this line to be discontinued after IV Lasix 20 mg given for pulmonary congestion on physical exam Concerned that patient may be on too many IV antibiotics given reduced cardiac function and cause fluid overload - stopped IV Vancomycin and IV Zosyn on , switched from IV Levaquin to PO Levaquin Monitor for fever, repeat blood culture planned for 08/06/17, send procalcitonin Chronic right arm pain Right Humerus X ray 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 No convincing evidence of an acute injury. Pain medications: Valacyclovir, Gabapentin, Fentanyl, Lidocaine Code Status is DNR/DNI Family information: [phone] Disposition: monitor on telemetry Vital Signs: Date Time Temp Pulse Resp B/P (MAP) Pulse Ox O2 Delivery O2 Flow Rate FiO2 08/06/17 12:03 Nasal Cannula 3.0 08/06/17 11:26 36.6 92 18 94/61 (72) 96 08/06/17 08:05 Nasal Cannula 3.0 08/06/17 08:01 89 16 93 Nasal Cannula 2.0 08/06/17 07:48 36.7 95 18 102/64 (77) 100 2.0 08/06/17 04:02 BiPAP 08/06/17 03:33 36.3 90 20 103/67 (79) 97 BiPAP 08/06/17 01:41 85 16 98 BiPAP/CPAP 30 08/06/17 00:30 98/61 (73) 08/06/17 00:00 BiPAP 08/05/17 23:44 36.3 91 22 80/54 (63) 98 BiPAP 08/05/17 21:52 99 97 30 08/05/17 20:41 100 20 112/69 (83) 97 Nasal Cannula 2.0 08/05/17 20:01 Nasal Cannula 2.0 08/05/17 19:52 85 17 97 Nasal Cannula 2.0 08/05/17 19:26 36.3 89 17 97/60 (72) 98 Nasal Cannula 2.0 08/05/17 16:00 36.6 89 16 111/63 (79) 95 Nasal Cannula 2.0 08/05/17 16:00 Nasal Cannula 2.0 08/05/17 14:10 88 17 96 Nasal Cannula 2.0 08/05/17 14:00 91 18 104/59 (74) 93 Nasal Cannula 2.0 Lab Results: Results Past 24 Hours Test 08/05/17 16:08 08/05/17 17:53 08/05/17 20:30 08/06/17 05:55 Range/Units Bedside Glucose 139 147 70-99 mg/dl Troponin I 15.200 0-0.045 ng/ml White Blood Count 22.49 4.8-10.8 K/uL Red Blood Count 3.13 4.7-6.1 M/uL Hemoglobin 9.9 14.0-18.0 g/dL Hematocrit 31.9 42-52 % Mean Corpuscular Volume 101.9 80-100 fL Mean Corpuscular Hemoglobin 31.6 25-34 pg Mean Corpuscular Hemoglobin Concent 31.0 32-36 g/dl Platelet Count 250 130-400 K/uL Mean Platelet Volume 9.7 7.4-10.4 fL Neutrophils (%) (Auto) 64.9 % Lymphocytes (%) (Auto) 29.4 % Monocytes (%) (Auto) 5.2 % Eosinophils (%) (Auto) 0.0 % Basophils (%) (Auto) 0.0 % Neutrophils # (Auto) 14.57 1.4-6.5 K/uL Lymphocytes # (Auto) 6.62 1.2-3.4 K/uL Monocytes # (Auto) 1.18 0.11-0.59 K/uL Eosinophils # (Auto) 0.00 0-0.5 K/uL Basophils # (Auto) 0.01 0-0.2 K/uL RDW Standard Deviation 62.8 36.4-46.3 fL RDW Coefficient of Variation 16.8 11.5-14.5 % Immature Granulocyte % (Auto) 0.5 % Immature Granulocyte # (Auto) 0.11 0.00-0.02 K/uL Nucleated RBC Absolute Count (auto) 0.14 0-0 K/uL Nucleated Red Blood Cells % 0.6 % [place] Bodies 1+ Acanthocytes 1+ Prothrombin Time 26.8 9.0-12.0 SECONDS Prothromb Time International Ratio 2.6 0.9-1.1 Sodium Level 137 136-145 mmol/L Potassium Level 4.3 3.5-5.1 mmol/L Chloride Level 103 98-107 mmol/L Carbon Dioxide Level 27 21-32 mmol/L Anion Gap 7.0 3-11 mmol/L Blood Urea Nitrogen 75 7-18 mg/dl Creatinine 1.98 0.60-1.40 mg/dl Est Creatinine Clear Calc Drug Dose 31.1 ml/min Estimated GFR () 34.4 Estimated GFR (Non- 29.7 BUN/Creatinine Ratio 38.0 10-20 Random Glucose 112 70-99 mg/dl Calcium Level 8.1 8.5-10.1 mg/dl Magnesium Level 3.0 1.8-2.4 mg/dl Total Bilirubin 1.0 0.2-1 mg/dl Aspartate Amino Transf (AST/SGOT) 113 15-37 U/L Alanine Aminotransferase (ALT/SGPT) 45 12-78 U/L Alkaline Phosphatase 71 45-117 U/L Total Protein 5.4 6.4-8.2 gm/dl Albumin 2.6 3.4-5.0 gm/dl Globulin 2.8 2.5-4.0 gm/dl Albumin/Globulin Ratio 0.9 0.9-2 Test 08/06/17 06:50 08/06/17 11:15 Range/Units Bedside Glucose 133 173 70-99 mg/dl
[2017-08-06] MEDS: WARFARIN SOD 2.5 MG TAB PO SCH (15:55)
[2017-08-07] VITALS (13 sets, daily range): BP systolic 83–108; BP diastolic 47–70; PULSE 85–114; TEMP 36.5–37.5; O2SAT 90–97
[2017-08-07] MEDS: CHECK FENTANYL PATCH PLACEMENT SCH ×3 (00:29→16:00)
[2017-08-07] MEDS: IPRATROPIUM BROMIDE NEB SOLN 0.02% 2.5 ML VIAL INH SCH ×4 (02:24→20:39)
[2017-08-07] MEDS: LEVALBUTEROL 1.25MG/0.5ML NEB INH SCH ×4 (02:24→20:39)
[2017-08-07] MEDS ORDERED: VANCOMYCIN TROUGH ONE (03:30)
[2017-08-07] MEDS: OXYCODONE/ACETAMINOPHEN 10/325MG TAB PO PRN (05:33)
[2017-08-07] MEDS: METOPROLOL SUCC 25MG EXT REL TAB PO SCH (05:56)
[2017-08-07 06:20] LABS: HEMATOCRIT 33.6 % (42-52); HEMOGLOBIN 10.5 g/dL (14.0-18.0); MEAN CELL VOLUME 100.6 fL (80-100); MEAN CORPUSCULAR HEMOGLOBIN 31.4 pg (25-34); MEAN CORPUSCULAR HGB CONC 31.3 g/dl (32-36); MEAN PLATELET VOLUME 9.8 fL (7.4-10.4); NUCLEATED RED BLOOD CELL ABS 0.34 K/uL (0-0); PLATELET COUNT 279 K/uL (130-400); RED CELL DISTRIBUTION WIDTH CV 16.4 % (11.5-14.5); RED CELL DISTRIBUTION WIDTH SD 60.5 fL (36.4-46.3); WHITE BLOOD COUNT 21.86 K/uL (4.8-10.8)
[2017-08-07 06:31] LABS: INR 3.4 (0.9-1.1)
[2017-08-07] MEDS: INSULIN ASPART 100 UNITS/ML 3 ML PEN SC SCH ×4 (07:00→20:32)
[2017-08-07 07:03] LABS: ALBUMIN 2.9 gm/dl (3.4-5.0); CALCIUM 8.3 mg/dl (8.5-10.1); CREATININE 2.07 mg/dl (0.60-1.40); POTASSIUM 4.8 mmol/L (3.5-5.1)
[2017-08-07 07:15] LABS: TOTAL PROTEIN 6.3 gm/dl (6.4-8.2)
[2017-08-07] MEDS ORDERED: MoRPHine SULFATE 2 MG/ML CARP IV STA (07:33)
[2017-08-07] MEDS ORDERED: MoRPHine SULFATE 2 MG/ML CARP ONE (07:35)
--- NOTE | 2017-08-07 07:38 | Progress Note ---
Progress Note Date of Service Aug 07, 2017. Progress Note called by RN as patient was reporting left sided chest pain EKG showed a fib with HR 106, no new changes compared to 08/05 on exam, patient states he was having "terrible" right arm pain through the bit bender, then had left sided chest pain, "pressure", moderate denies dyspnea, palpitations, nausea, dizziness denies other symptoms tachycardic, irregularly irregular rhythm clear breath sounds bilaterally CHEST PAIN from tachycardia in the setting of severe aortic stenosis, cardiomyopathy? - check cardiac markers - AM dose of Metoprolol ordered to be given standing dose of Percocet PRN ordered to be given - avoiding Nitro and IV narcotics as patient has marginal BP and severe aortic stenosis, cardiomyopathy per Echo discussed with Dr. Gutierrez, recommend to consult with Cardiology SVC Rip Morgan MD
[2017-08-07] MEDS ORDERED: MoRPHine SULFATE 2 MG/ML CARP IV PRN (07:45)
[2017-08-07] MEDS: LIDODERM (LIDOCAINE) PATCH 5% TD SCH (07:53)
--- NOTE | 2017-08-07 07:55 | DIAGNOSTIC IMAGING REPORT ---
CHEST ONE VIEW PORTABLE CLINICAL HISTORY: rhonchi on lung exam dyspnea. Cough. COMPARISON STUDY: 08/06/2017 FINDINGS: Unchanging parenchymal infiltrate left base. Slight improvement in aeration right lung base. Central catheter has been removed. Mid and upper lungs are clear. Mild stable cardiomegaly. IMPRESSION: 1. Unchanging parenchymal infiltrate left base. 2. Improved infiltrative process right base. 3.. Interval removal of the right central line The above report was generated using voice recognition software. It may contain grammatical, syntax or spelling errors. Electronically signed by: Tavon Menard M.D. 08/07/2017 7:54 AM Dictated Date/Time: 08/07/2017 7:53 AM
[2017-08-07 07:57] LABS: BASO % 0.2 %; BASO ABS # 0.04 K/uL (0-0.2); LYMPH ABS # 8.74 K/uL (1.2-3.4); MONO % 6.8 %; MONO ABS # 1.48 K/uL (0.11-0.59); NEUT % 50.7 %
--- NOTE | 2017-08-07 07:57 | Progress Note ---
Internal Med Progress Note Date of Service: Aug 07, 2017. Provider Documentation: SUBJECTIVE: Patient seen and examined at bedside. Night time Hospitalist note reviewed - was concerned for right arm pain vs chest pain. patient was tachycardic - could be from pain. When examined at the bedside, patient reports not in pain. Is receiving a breathing treatment on mask. Patient apparently had not tolerated BIPAP due to discomfort of the face. Patient agrees to try BIPAP. Pain medications ordered and Lasix 20 mg IV. Patient is still anticoagulated on warfarin and actually somewhat supra therapeutic 3.4. Patient's troponin is still high but downtrending OBJECTIVE: General- no acute distress Eyes- EOMI Neck- trachea midline Lungs- Coarse Rhonchi on anterior auscultation Heart- Regular rate on exam in the AM Abdomen- non tender, normal bowel sounds, Extremities- bilateral edema similar to previously seen edema ASSESSMENT & PLAN: This is a 86 year old M admitted to ICU level of care after acute Inferior wall [place] and was on IV heparin for anticoagulation management rather than cardiac cath Patient's maximum troponins on the admission was 28 and has downtrended to 15.2 on repeat labs on 08/05/17 to 13.6 on 08/07/17 EF Ejection Fraction = <15% on 08/04/17, continue Metoprolol, monitor for hypotension Patient transferred to telemetry banda on 08/05/17, ICU physician discontinued heparin IV and started warfarin INR 2.6 on 08/06/17 while on coumadin 2.5 mg daily , INR is 3.4 on 08/07/17 and will switch to lower dose of warfarin CHF/CAD: aspirin, atorvastatin, anticoagulation, encouraged use of BIPAP cardiology recommendations on Post-myocardial infraction medication optimization appreciated Cardiogenic shock vs Septic Shock Patient has been off IV Norepinephrine since the AM of 08/05/17 Possible Pneumonia induced Sepsis: broad spectrum IV antibiotics Zosyn and Levaquin and Vancomycin. Urine culture negative from 08/03/17, Blood culture negative from 08/03/17, Sputum Culture LIGHT NORMAL MARÍA ELENA Present CXR on 08/06/17 Cardiomegaly with worsening pulmonary edema and small pleural effusions Has Right Internal Jugular central line from ICU and have asked this line to be discontinued after IV Lasix 20 mg given for pulmonary congestion on physical exam Concerned that patient may be on too many IV antibiotics given reduced cardiac function and cause fluid overload - stopped IV Vancomycin and IV Zosyn on , switched from IV Levaquin to PO Levaquin Monitor for fever, repeat blood culture drawn on 08/07/17, procalcitonin on is downtrending Atrial Fibrillation. 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 No convincing evidence of an acute injury. Pain medications: Valacyclovir, Gabapentin, Fentanyl, Lidocaine, was on percocet - given 1 dose of 2 mg IV morphine on 08/07/17 Diet: keep NPO except meds and sips of water for now, speech and swallow evaluation Code Status is DNR/DNI Family information: robert [phone] Disposition: monitor on telemetry. Vital Signs: Date Time Temp Pulse Resp B/P (MAP) Pulse Ox O2 Delivery O2 Flow Rate FiO2 08/07/17 07:11 85 18 91 Nasal Cannula 3.0 08/07/17 06:24 96 108/70 (83) 08/07/17 06:02 113 106/62 (77) 08/07/17 05:48 114 20 96/60 (72) 96 Nasal Cannula 3.0 08/07/17 04:32 37.2 110 20 101/57 (72) 95 Nasal Cannula 3.0 08/07/17 04:00 BiPAP 08/07/17 02:24 88 16 92 Nasal Cannula 3.0 08/07/17 00:02 BiPAP 08/06/17 23:38 36.5 98 22 109/68 (82) 91 Nasal Cannula 3.0 08/06/17 20:00 BiPAP 08/06/17 19:33 36.5 101 20 104/64 (77) 99 Nasal Cannula 2.5 08/06/17 19:07 84 16 93 Nasal Cannula 3.0 08/06/17 16:03 Nasal Cannula 3.0 08/06/17 15:53 86 16 93 Nasal Cannula 2.0 08/06/17 15:11 36.5 90 18 108/67 (81) 97 Nasal Cannula 3.0 08/06/17 12:03 Nasal Cannula 3.0 08/06/17 11:26 36.6 92 18 94/61 (72) 96 08/06/17 08:05 Nasal Cannula 3.0 08/06/17 08:01 89 16 93 Nasal Cannula 2.0 08/06/17 07:48 36.7 95 18 102/64 (77) 100 2.0 Lab Results: Results Past 24 Hours Test 08/06/17 11:15 08/06/17 16:09 08/06/17 20:11 08/07/17 05:56 Range/Units Bedside Glucose 173 151 187 70-99 mg/dl White Blood Count 21.86 4.8-10.8 K/uL Red Blood Count 3.34 4.7-6.1 M/uL Hemoglobin 10.5 14.0-18.0 g/dL Hematocrit 33.6 42-52 % Mean Corpuscular Volume 100.6 80-100 fL Mean Corpuscular Hemoglobin 31.4 25-34 pg Mean Corpuscular Hemoglobin Concent 31.3 32-36 g/dl Platelet Count 279 130-400 K/uL Mean Platelet Volume 9.8 7.4-10.4 fL RDW Standard Deviation 60.5 36.4-46.3 fL RDW Coefficient of Variation 16.4 11.5-14.5 % Nucleated RBC Absolute Count (auto) 0.34 0-0 K/uL Nucleated Red Blood Cells % 1.6 % Prothrombin Time 35.2 9.0-12.0 SECONDS Prothromb Time International Ratio 3.4 0.9-1.1 Sodium Level 136 136-145 mmol/L Potassium Level 4.8 3.5-5.1 mmol/L Chloride Level 101 98-107 mmol/L Carbon Dioxide Level 24 21-32 mmol/L Anion Gap 11.0 3-11 mmol/L Blood Urea Nitrogen 82 7-18 mg/dl Creatinine 2.07 0.60-1.40 mg/dl Est Creatinine Clear Calc Drug Dose 29.7 ml/min Estimated GFR () 32.6 Estimated GFR (Non- 28.2 BUN/Creatinine Ratio 39.7 10-20 Random Glucose 127 70-99 mg/dl Calcium Level 8.3 8.5-10.1 mg/dl Total Bilirubin 1.1 0.2-1 mg/dl Aspartate Amino Transf (AST/SGOT) 111 15-37 U/L Alanine Aminotransferase (ALT/SGPT) 61 12-78 U/L Alkaline Phosphatase 136 45-117 U/L Total Creatine Kinase 81 39-308 U/L Creatine Kinase MB 4.0 0.5-3.6 ng/ml Creatine Kinase MB Ratio 4.9 0-3.0 Troponin I 13.600 0-0.045 ng/ml Total Protein 6.3 6.4-8.2 gm/dl Albumin 2.9 3.4-5.0 gm/dl Globulin 3.4 2.5-4.0 gm/dl Albumin/Globulin Ratio 0.9 0.9-2 Procalcitonin 1.91 0-0.5 ng/ml Test 08/07/17 06:38 Range/Units Bedside Glucose 156 70-99 mg/dl Microbiology Results 08/07/17 Blood Culture, Received Pending 08/07/17 Blood Culture, Received Pending
[2017-08-07] MEDS ORDERED: FUROSEMIDE INJ 20 MG in SYRINGE 0 ML IV ONE (08:00)
[2017-08-07] MEDS: FoLIC ACID TAB 400 MCG TAB PO SCH (09:00)
[2017-08-07] MEDS: CHOLECALCIFEROL 400 INTER.UNIT TAB PO SCH (09:00)
[2017-08-07] MEDS: PANTOprazole SOD 40 MG TAB PO SCH (09:00)
[2017-08-07] MEDS: OMEGA-3 (PURIFIED FISH OIL) 1 GM CAP PO SCH (09:00)
[2017-08-07] MEDS: CYANOCOBALAMIN 500 MCG TAB (VIT B-12) PO SCH (09:00)
[2017-08-07] MEDS: ASPIRIN 81 MG ECTAB PO SCH (09:00)
[2017-08-07] MEDS: ATORVASTATIN 40 MG TAB PO SCH (09:00)
[2017-08-07] MEDS: CEROVITE ADV FORMULA TAB PO SCH (09:00)
--- NOTE | 2017-08-07 11:01 | Pharmacy Progress Note ---
Pharmacy Glycemic Short Note 2 Date of Service Aug 07, 2017. OUTPATIENT ANTIDIABETIC REGIMEN: * N/A ASSESSMENT: * 86 yo M with unknown outpatient glycemic control (no A1c to go off of) requiring basal/bolus regimen for BSG management * Originally BSGs were >180 likely due to short course of stress dose steroids * Pt received one dose of Lantus on 08/04 and has not received any further basal insulin * Over the past 24 hours - 1 unit of Novolog has been given * Pharmacy intended to possibly sign off but will keep consult for now as patient NPO PLAN FOR INPATIENT GLYCEMIC CONTROL: * Hold outpatient oral diabetes medications * Basal insulin * Hold for now - consider small dose if fasting BSG consistently >140 * Bolus insulin * NovoLog per scale ACHS or Q6hrs while NPO * Goal Range: Low 110 mg/dL - High 140 mg/dL * Correction Factor: 30 mg/dL/unit * Nutritional / Prandial insulin per carb ratio of 1 unit per 12 grams CHO consumed PLAN FOR DISCHARGE: * Unknown A1c - will order for Tuesday
[2017-08-07] MEDS: GABAPENTIN 100 MG CAP PO SCH ×3 (11:39→20:17)
[2017-08-07] MEDS: TORSEMIDE 20 MG TAB PO SCH (11:41)
[2017-08-07] MEDS ORDERED: FENTANYL PATCH REMOVE & WASTE SCH ×2 (12:59→20:29)
[2017-08-07] MEDS: FENTANYL 50 MCG/HR TDSY TD SCH (13:08)
[2017-08-07 13:09] LABS: CKMB 3.9 ng/ml (0.5-3.6)
[2017-08-07] MEDS ORDERED: OXYCODONE/ACETAMINOPHEN 5-325 TAB PO PRN (13:15)
[2017-08-07] MEDS ORDERED: OXYCODONE/ACETAMINOPHEN 10/325MG TAB ONE (13:40)
[2017-08-07] MEDS ORDERED: WARFARIN SOD 2 MG TAB PO SCH (16:00)
--- NOTE | 2017-08-07 17:36 | Cardiology Consultation ---
Cardiology Consultation Date of Consultation: Aug 07, 2017 History of Present Illness Parrish Tracy is a 86 year old male seen in cardiology consultation per the request of Dr. Gutierrez for ongoing cardiac management given the patient's history of chronic heart failure and recent acute posterior myocardial infarction. The patient is a long-standing history of chronic atrial fibrillation and mixed valvular heart disease with severe aortic regurgitation, aortic stenosis, severe mitral regurgitation, severe tricuspid regurgitation with pulmonary hypertension. He has had multiple pulmonary embolism events in the past and is on chronic anticoagulation with Coumadin. He is treated as an outpatient at baseline with high-dose diuretic therapy including torsemide, spironolactone, and occasional metolazone for chronic biventricular heart failure. The patient had initially presented via the emergency room on 08/03/17 with complaints of generalized lethargy shortness of breath and chest discomfort. He was found to have an acute posterior myocardial infarction in the emergency room at that time as documented on EKG with ST segment elevation in leads III, V1 and aVR and diffuse reciprocal ST segment depression elsewhere. He was triaged appropriately by the emergency room team and subsequently evaluated by interventional cardiology as well as Dr. Diaz of our practice and due to his multiple comorbidities is felt that he was knocked candidate for emergent intervention. He was therefore hospitalized in the intensive care unit the beginning of his hospital stay. Influenza screen was negative. He was treated for possible underlying pneumonia and sepsis syndrome and required central access with a right internal jugular central venous catheter. He remains on levofloxacin for treatment of pneumonia. During my interview with the patient he was somnolent. History is obtained from interview with his spouse and daughters were at the bedside and from review of his chart. Past Medical/Surgical History Problem List: Medical Problems: (1) Atrial fibrillation (2) CHF due to valvular disease (3) CLL (chronic lymphocytic leukemia) (4) Cor pulmonale (5) DVT (deep venous thrombosis) (6) Dyslipidemia (7) Hemolytic anemia (8) Post herpetic neuralgia (9) Pulmonary embolism (10) Systolic dysfunction Surgical Problems: (1) H/O splenectomy (2) History of cholecystectomy (3) History of dental surgery Review Of Systems A conference review of systems is not obtainable due to the patient's mental status Allergies Coded Allergies: No Known Allergies (Unverified , 08/03/17) Medications Reported Home Medications Medications Dose Route/Sig Max Daily Dose Days Date Category Vitamin D 400 Iu (Cholecalciferol) 400 Unit Cap 400 Inter.unit PO DAILY 08/03/17 Reported Parafon Forte Dsc (Chlorzoxazone) 500 Mg Tab 500 Mg PO TID PRN 08/03/17 Reported Triamcinolone Acetonide (Triamcinolone Acet) 45 Appln/15 Gm Oint 1 Appln TOP BID PRN 30 08/03/17 Reported Flonase Allergy Relief (Fluticasone Propionate (Nasal)) 50 Mcg/Act Spr 2 Sprays NA DAILY 08/03/17 Reported Lidoderm Patch 5% (Lidocaine) 1 Ea Tdsy 1 Patch TOP DAILY 08/03/17 Reported Tamiflu (Oseltamivir Phosphate) 75 Mg Cap 75 Mg PO BID 5 08/03/17 Reported Neurontin (Gabapentin) 100 Mg Cap 100 Mg PO TID 08/03/17 Reported Zaroxolyn (Metolazone) 2.5 Mg Tab 2.5 Mg PO PRN 08/03/17 Reported [place]-3 (Fish Oil) 1 Ea Cap 1 Cap PO DAILY 08/03/17 Reported Capzasin (Capsaicin) 0.15 % Liq PRN 08/03/17 Reported Aldactone (Spironolactone) 25 Mg Tab 12.5 Mg PO DAILY 08/03/17 Reported Demadex (Torsemide) 20 Mg Tab 40 Mg PO BID 90 08/03/17 Reported Toprol Xl (Metoprolol Succinate) 25 Mg Tabcr 12.5 Mg PO DAILY 30 08/03/17 Reported Zestril (Lisinopril) 5 Mg Tab 2.5 Mg PO DAILY 08/03/17 Reported Valtrex (Valacyclovir Hcl) 1 Gm Tab 500 Mg PO DAILY 30 08/03/17 Reported Jantoven (Warfarin Sodium) 5 Mg Tab 2.5 Mg PO DAILY 09/26/15 Reported Vitamin B-12 (Cyanocobalamin) 1,000 Mcg Tab 1,000 Mcg PO DAILY 09/26/15 Reported Prednisone 5 Mg Tab 5 Mg PO DAILY 09/26/15 Reported Folic Acid 800 Mcg Tab 1 Tab PO DAILY 04/23/15 Reported Ocuvite Preservision (Multivitamins/Minerals) 1 Tab Tab 1 Tab PO DAILY 04/23/15 Reported Fioricet (Acetaminophen/Butalbital/Caffeine) 1 Ea Tab 1-2 Tab PO Q4H PRN 04/23/15 Reported Duragesic (Fentanyl) 50 Mcg Tdsy 50 Mcg TD [id number] 04/23/15 Reported Oxycodone/Acetaminophen 10MG/325MG 1 Tab Tab 2 Tab PO Q6H PRN 30 04/23/15 Reported Physical Exam Vital Signs (Last 8hrs): Last 8 Hrs Date Time Temp Pulse Resp B/P (MAP) Pulse Ox O2 Delivery O2 Flow Rate FiO2 08/07/17 15:38 37.5 88 20 83/47 (59) 92 Nasal Cannula 3.0 08/07/17 14:09 85 18 90 Nasal Cannula 3.0 08/07/17 12:03 Nasal Cannula 2.0 08/07/17 11:35 36.6 93 18 101/63 (76) 90 General Appearance: Alert and Oriented x3. NAD. Head: Normocephalic Atraumatic. Eyes: PERRLA, EOMI, conjunctiva and sclera clear Neck: Supple. No carotid bruits noted. No JVD. No HJD. Respiratory: Breath sounds clear to auscultation bilaterally. No w/r/r. Cardiovascular: Reg rate and rhythm. S1 and S2 noted. No murmurs, rubs, gallops. PMI non displace. Abdomen: Normal bowel sounds, soft nontender. no abdominal bruits. Extremities: No edema, no clubbing or cyanosis. distal pulses 2/4 bilaterally. Neuro: No focal deficits. Psychiatric: Normal affect. Data Last Resulted 08/07/17 05:56 Red Blood Count 3.34, Mean Corpuscular Volume 100.6, Mean Corpuscular Hemoglobin 31.4, Mean Corpuscular Hemoglobin Concent 31.3, Mean Platelet Volume 9.8, Neutrophils (%) (Auto) 50.7, Lymphocytes (%) (Auto) 40.0, Monocytes (%) ( Auto) 6.8, Eosinophils (%) (Auto) 0.0, Basophils (%) (Auto) 0.2, Neutrophils # ( Auto) 11.10, Lymphocytes # (Auto) 8.74, Monocytes # (Auto) 1.48, Eosinophils # ( Auto) 0.00, Basophils # (Auto) 0.04 Last Resulted 08/07/17 05:56 Past 24 Hours Test 08/07/17 05:56 08/07/17 12:18 Range/Units Creatine Kinase MB 4.0 H 3.9 H 0.5-3.6 ng/ml Creatine Kinase MB Ratio 4.9 H 4.6 H 0-3.0 Prothromb Time International Ratio 3.4 H 0.9-1.1 Prothrombin Time 35.2 H 9.0-12.0 SECONDS Total Creatine Kinase 81 84 39-308 U/L Troponin I 13.600 *H 12.000 *H 0-0.045 ng/ml The patient has had serial troponin tests performed during this hospital stay which had peaked at 28 ng/ml on 08/04/17 and trended toward improvement with level of 12 today , 08/07/17. Echocardiogram performed 08/04/17, with images reviewed independently at the time of today's consultation: Moderate left ventricular chamber enlargement is present. Severe left ventricular global hypokinesis was noted with an ejection fraction of less than 50%. The right ventricle was also severely dilated with severe reduction in the right ventricular systolic function. Severe aortic valve regurgitation is noted, severe aortic valve stenosis is noted, moderate to severe mitral regurgitation is noted and moderate to severe tricuspid regurgitation is noted with severe pulmonary hypertension EKG: Most recent EKG performed 08/07/17 revealed atrial fibrillation with improvement in the ST segment elevation noted in leads aVR and V1, and continued mild ST elevation over Q waves in the inferior leads III and aVF as well as lateral ST depression. Telemetry reveals atrial fibrillation with ventricular rates in the 80-95 bpm range Assessment & Plan IMPRESSION: 1. s/p posterolateral wall myocardial infarction, severe LV , RV systolic dysfunction, multifactorial 2. Severe mixed valvular heart disease. 3. Chronic cor pulmonale due to severe pulmonary hypertension. 4. History of multiple pulmonary emboli. 5. Chronic lymphocytic leukemia. RECOMMENDATIONS: Long discussion with the patient's spouse and his 2 daughters were at the bedside. As the patient was too somnolent to have the conversation. Based on his past history as ascertained from his chart, his echocardiographic findings, and his progress this admission, I think his chance of a significant recovery from his current acute illness is low and that his prognosis is very poor. He was felt to be a poor candidate for an early invasive strategy when he presented on 08/03, and he has not improved with conservative medication management. At baseline his blood pressure is low and he is only able to tolerate low doses of the typical medication regimen is for cardiomyopathy. Prehospital he was already on a very intensive diuretic therapy, and at present , he remains volume overloaded with severe LV systolic dysfunction, and progressive worsening of his kidney function. At present I recommend transition to palliative care strategy. His family was agreeable to this. His spouse would like information regarding home hospice. I discussed my impression of my conversation with the family with Dr. Gutierrez, and a palliative care consultation is going to be placed, and hopefully the palliative care team and the case management team will be old to help provide advice to the family regarding inpatient / outpatient hospice options. No changes in cardiac medications advised at present. I would recommend use of morphine on an PRN basis if necessary to ease pain and work of breathing.
[2017-08-07 19:20] LABS: CKMB 3.6 ng/ml (0.5-3.6)
[2017-08-07] MEDS ORDERED: OXYCODONE/ACETAMINOPHEN 10/325MG TAB PO SCH (20:00)
[2017-08-07] MEDS ORDERED: LEVOFLOXACIN 750 MG TAB PO SCH (20:00)
[2017-08-07] MEDS: OXYCODONE/ACETAMINOPHEN 10/325MG TAB PO SCH (20:10)
[2017-08-07] MEDS ORDERED: FENTANYL 25 MCG/HR TDSY TD SCH (20:30)
--- NOTE | 2017-08-07 21:42 | Progress Note ---
Post ICU Progress Note Date & Time Aug 07, 2017 at 21:38 Vital Signs Vital Signs Past 12 Hours Date Time Temp Pulse Resp B/P (MAP) Pulse Ox O2 Delivery O2 Flow Rate FiO2 08/07/17 20:00 Nasal Cannula 2.0 08/07/17 19:47 36.5 91 20 108/66 (80) 91 Nasal Cannula 3.0 08/07/17 16:00 Nasal Cannula 2.0 08/07/17 15:38 37.5 88 20 83/47 (59) 92 Nasal Cannula 3.0 08/07/17 14:09 85 18 90 Nasal Cannula 3.0 08/07/17 12:03 Nasal Cannula 2.0 08/07/17 11:35 36.6 93 18 101/63 (76) 90 Notes Mental Status: see Notes (Drowsy) Nausea / Vomiting: improving with treatment Pain: adequately controlled Airway Patency, RR, SpO2: stable & adequate BP & HR: stable & adequate Patient is an 86-year-old male initially admitted to the ICU for medical management of acute STEMI. He developed cardiogenic shock overnight with superimposed pneumonia. RIGHT IJ was placed and patient required vasoactive medications for approximately 24 hours. He did improve and was able to be downgraded from ICU status. Post-[place], the patient is noted to have an EF less than 15%. Per documentation, cardiology did have extensive conversation with the patient today suggesting palliative care measures at this point. During his stay in the ICU, the patient was made a DO NOT RESUSCITATE/DO NOT INTUBATE at the request of family. At the time of evaluation, the patient is resting comfortably. Offers no complaint at this point. Wet cough noted. Continue with care per admitting team. Agree with Palliation. Consider outpatient follow up in 1 to 2 weeks with: N/A Repeat imaging needed: CXRs PRN Follow up cultures: Repeat Cx's Reviewed progress notes, labs, and inpatient medication list Continue current management Additional recommendations: None at this time. Thank you for allowing us to participate in the care of this patient. At this time, Critical Care Services will sign off on patient's care. Please feel free to reconsult as needed. Consults & Procedures Consultants: Cardiology: Austyn Guzman Procedures: RT IJ Central Line. Dipesh Carballo.
[2017-08-08] VITALS (12 sets, daily range): BP systolic 81–113; BP diastolic 43–79; PULSE 73–99; TEMP 36.4–36.7; O2SAT 69–100
[2017-08-08] MEDS: CHECK FENTANYL PATCH PLACEMENT SCH ×3 (00:42→15:23)
[2017-08-08] MEDS: OXYCODONE/ACETAMINOPHEN 10/325MG TAB PO SCH ×4 (02:16→20:06)
[2017-08-08] MEDS: IPRATROPIUM BROMIDE NEB SOLN 0.02% 2.5 ML VIAL INH SCH ×4 (02:19→20:25)
[2017-08-08] MEDS: LEVALBUTEROL 1.25MG/0.5ML NEB INH SCH ×4 (02:19→20:25)
[2017-08-08 07:03] LABS: HEMATOCRIT 30.3 % (42-52); HEMOGLOBIN 9.4 g/dL (14.0-18.0); MEAN CELL VOLUME 100.3 fL (80-100); MEAN CORPUSCULAR HEMOGLOBIN 31.1 pg (25-34); NUCLEATED RED BLOOD CELL ABS 0.41 K/uL (0-0); PLATELET COUNT 258 K/uL (130-400); RED CELL DISTRIBUTION WIDTH CV 16.5 % (11.5-14.5); RED CELL DISTRIBUTION WIDTH SD 59.7 fL (36.4-46.3); WHITE BLOOD COUNT 25.21 K/uL (4.8-10.8)
[2017-08-08 07:07] LABS: INR 3.5 (0.9-1.1)
[2017-08-08 07:47] LABS: ALBUMIN 2.6 gm/dl (3.4-5.0); CREATININE 2.16 mg/dl (0.60-1.40); POTASSIUM 4.9 mmol/L (3.5-5.1)
[2017-08-08 07:50] LABS: TOTAL PROTEIN 5.5 gm/dl (6.4-8.2)
[2017-08-08] MEDS: INSULIN ASPART 100 UNITS/ML 3 ML PEN SC SCH ×4 (07:50→20:07)
[2017-08-08] MEDS: METOPROLOL SUCC 25MG EXT REL TAB PO SCH (07:52)
[2017-08-08 07:56] LABS: HEMOGLOBIN A1C 5.7 % (4.5-5.6)
[2017-08-08] MEDS: FoLIC ACID TAB 400 MCG TAB PO SCH (08:05)
[2017-08-08] MEDS: CYANOCOBALAMIN 500 MCG TAB (VIT B-12) PO SCH (08:05)
[2017-08-08] MEDS: ASPIRIN 81 MG ECTAB PO SCH (08:05)
[2017-08-08] MEDS: CEROVITE ADV FORMULA TAB PO SCH (08:06)
[2017-08-08] MEDS: GABAPENTIN 100 MG CAP PO SCH ×3 (08:06→20:07)
[2017-08-08] MEDS: PANTOprazole SOD 40 MG TAB PO SCH (08:06)
[2017-08-08] MEDS: CHOLECALCIFEROL 400 INTER.UNIT TAB PO SCH (08:06)
[2017-08-08] MEDS: ATORVASTATIN 40 MG TAB PO SCH (08:07)
[2017-08-08] MEDS: OMEGA-3 (PURIFIED FISH OIL) 1 GM CAP PO SCH (08:07)
[2017-08-08] MEDS: TORSEMIDE 20 MG TAB PO SCH (08:07)
[2017-08-08 08:29] LABS: BASO % 0.2 %; BASO ABS # 0.06 K/uL (0-0.2); IG# 0.84 K/uL (0.00-0.02); LYMPH % 49.7 %; LYMPH ABS # 12.54 K/uL (1.2-3.4); MONO % 5.3 %; MONO ABS # 1.33 K/uL (0.11-0.59); NEUT % 41.5 %; NEUT ABS # 10.44 K/uL (1.4-6.5)
[2017-08-08] MEDS ORDERED: FUROSEMIDE INJ 10 MG in SYRINGE 0 ML IV STA (15:42)
[2017-08-08] MEDS ORDERED: ALBUMIN HUMAN 25% 12.5 GM/50 ML VIAL IV ONE (15:45)
--- NOTE | 2017-08-08 15:56 | Progress Note ---
Internal Med Progress Note Date of Service: Aug 08, 2017. Provider Documentation: SUBJECTIVE: Patient seen and examined at bedside. Has been awake and alert this morning. Sleeping in afternoon OBJECTIVE: General- no acute distress Eyes- EOMI Neck- trachea midline Lungs- Coarse Rhonchi on anterior auscultation Heart- Regular rate on exam in the AM Abdomen- non tender, normal bowel sounds, Extremities- bilateral edema similar to previously seen edema ASSESSMENT & PLAN: This is a 86 year old M admitted to ICU level of care after acute posterolateral wall myocardial infarction with severe LV/RV dysfunction with Severe mixed valvular heart disease with Chronic cor pulmonale due to severe pulmonary hypertension was on IV heparin for anticoagulation management rather than cardiac cath Patient's maximum troponins on the admission was 28 and has downtrended to 10.9 on 08/07/17 EF Ejection Fraction = <15% on 08/04/17 Patient transferred to telemetry banda on 08/05/17, ICU physician discontinued heparin IV and started warfarin INR 2.6 on 08/06/17 while on coumadin 2.5 mg daily , INR is 3.4 on 08/07/17 and will switch to lower dose of warfarin of 2mg, INR is 3.5 on 08/08/16 and warfarin to be held for today, reassess INR Cardiology evaluation evaluation of patient's prognosis is poor and that diuresis strategies is unlikely to help the patient's overall prognosis. Have requested palliative care consult to see patient and his family again as patient's family has requested more information about hospice Patient's is preferring active diuresis efforts to reduce bilateral lower extremity edema despite expressing understanding that this can cause sudden drops in blood pressure Patient's have expressed preferences to try to keep patient's oral regimen of medication such as torsemide and coumadin to what it was like at home - she appears to have expressed preferences of bringing the patient back home and it would be helpful for palliative care consult to help clarify what the goals of care are to be continue with torsemide, aspirin, metoprolol, atorvastatin, anticoagulation to therapeutic INR, encouraged use of BIPAP while inpatient Cardiogenic shock vs Septic Shock Patient has been off IV Norepinephrine since the AM of 08/05/17 Possible Pneumonia induced Sepsis: broad spectrum IV antibiotics Zosyn and Levaquin and Vancomycin. Urine culture negative from 08/03/17, Blood culture negative from 08/03/17, Sputum Culture LIGHT NORMAL MARÍA ELENA Present CXR on 08/06/17 Cardiomegaly with worsening pulmonary edema and small pleural effusions Concerned that patient may be on too many IV antibiotics given reduced cardiac function and cause fluid overload - stopped IV Vancomycin and IV Zosyn on , switched from IV Levaquin to PO Levaquin Monitor for fever, repeat blood culture drawn on 08/07/17 negative, procalcitonin on 08/07/17 is downtrending Levaquin stopped on 08/08/17 Atrial Fibrillation. 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 No convincing evidence of an acute injury. Pain medications: Valacyclovir, Gabapentin, Fentanyl, on percocet 2 tab q6hr Diet: keep NPO except meds and sips of water for now, speech and swallow evaluation Code Status is DNR/DNI Family information: [phone] Disposition: monitor on telemetry. Prognosis is poor Vital Signs: Date Time Temp Pulse Resp B/P (MAP) Pulse Ox O2 Delivery O2 Flow Rate FiO2 08/08/17 15:13 85 24 92 Nasal Cannula 4.0 08/08/17 12:00 Nasal Cannula 4.0 08/08/17 11:52 36.4 88 20 82/46 (58) 91 08/08/17 08:33 95/57 (70) 100 BiPAP 100 08/08/17 08:00 BiPAP 08/08/17 07:53 73 84 100 08/08/17 07:53 73 30 76 Nasal Cannula 3.0 08/08/17 07:37 36.6 76 18 81/43 (56) 69 3.0 08/08/17 04:02 Nasal Cannula 2.0 08/08/17 03:53 36.5 91 17 103/64 (77) 93 Nasal Cannula 2.0 08/08/17 02:19 92 18 94 Nasal Cannula 3.0 08/08/17 00:02 Nasal Cannula 2.0 08/07/17 23:48 37.2 101 20 99/65 (76) 94 Nasal Cannula 2.0 08/07/17 20:00 Nasal Cannula 2.0 12/31/17 19:47 36.5 91 20 108/66 (80) 91 Nasal Cannula 3.0 Lab Results: Results Past 24 Hours Test 08/07/17 16:22 08/07/17 18:14 08/07/17 20:30 08/08/17 06:26 Range/Units Bedside Glucose 144 167 70-99 mg/dl Total Creatine Kinase 73 39-308 U/L Creatine Kinase MB 3.6 0.5-3.6 ng/ml Creatine Kinase MB Ratio 4.9 0-3.0 Troponin I 10.900 0-0.045 ng/ml White Blood Count 25.21 4.8-10.8 K/uL Red Blood Count 3.02 4.7-6.1 M/uL Hemoglobin 9.4 14.0-18.0 g/dL Hematocrit 30.3 42-52 % Mean Corpuscular Volume 100.3 80-100 fL Mean Corpuscular Hemoglobin 31.1 25-34 pg Mean Corpuscular Hemoglobin Concent 31.0 32-36 g/dl Platelet Count 258 130-400 K/uL Mean Platelet Volume 10.0 7.4-10.4 fL Neutrophils (%) (Auto) 41.5 % Lymphocytes (%) (Auto) 49.7 % Monocytes (%) (Auto) 5.3 % Eosinophils (%) (Auto) 0.0 % Basophils (%) (Auto) 0.2 % Neutrophils # (Auto) 10.44 1.4-6.5 K/uL Lymphocytes # (Auto) 12.54 1.2-3.4 K/uL Monocytes # (Auto) 1.33 0.11-0.59 K/uL Eosinophils # (Auto) 0.00 0-0.5 K/uL Basophils # (Auto) 0.06 0-0.2 K/uL RDW Standard Deviation 59.7 36.4-46.3 fL RDW Coefficient of Variation 16.5 11.5-14.5 % Immature Granulocyte % (Auto) 3.3 % Immature Granulocyte # (Auto) 0.84 0.00-0.02 K/uL Nucleated RBC Absolute Count (auto) 0.41 0-0 K/uL Nucleated Red Blood Cells % 1.6 % Poikilocytosis PRESENT Anisocytosis PRESENT Spherocytes 1+ Grove-Bier Bodies 1+ Prothrombin Time 35.7 9.0-12.0 SECONDS Prothromb Time International Ratio 3.5 0.9-1.1 Sodium Level 136 136-145 mmol/L Potassium Level 4.9 3.5-5.1 mmol/L Chloride Level 103 98-107 mmol/L Carbon Dioxide Level 24 21-32 mmol/L Anion Gap 9.0 3-11 mmol/L Blood Urea Nitrogen 95 7-18 mg/dl Creatinine 2.16 0.60-1.40 mg/dl Est Creatinine Clear Calc Drug Dose 28.5 ml/min Estimated GFR () 31.0 Estimated GFR (Non- 26.7 BUN/Creatinine Ratio 43.9 10-20 Random Glucose 120 70-99 mg/dl Estimated Average Glucose 117 mg/dl Hemoglobin A1c 5.7 4.5-5.6 % Calcium Level 8.0 8.5-10.1 mg/dl Total Bilirubin 1.0 0.2-1 mg/dl Aspartate Amino Transf (AST/SGOT) 123 15-37 U/L Alanine Aminotransferase (ALT/SGPT) 72 12-78 U/L Alkaline Phosphatase 186 45-117 U/L Total Protein 5.5 6.4-8.2 gm/dl Albumin 2.6 3.4-5.0 gm/dl Globulin 2.9 2.5-4.0 gm/dl Albumin/Globulin Ratio 0.9 0.9-2 Test 08/08/17 06:28 08/08/17 11:06 Range/Units Bedside Glucose 130 155 70-99 mg/dl
[2017-08-08] MEDS ORDERED: WARFARIN SOD 2 MG TAB PO SCH (16:00)
[2017-08-08] MEDS ORDERED: ALBUMIN 25% IV ONE ×2 (16:30)
[2017-08-08] MEDS ORDERED: FUROSEMIDE IV ONE ×2 (16:30)
[2017-08-09] VITALS (7 sets, daily range): BP systolic 88–107; BP diastolic 53–63; PULSE 80–96; TEMP 36.7–37; O2SAT 91–97
[2017-08-09] MEDS: CHECK FENTANYL PATCH PLACEMENT SCH ×3 (00:01→16:03)
[2017-08-09] MEDS: IPRATROPIUM BROMIDE NEB SOLN 0.02% 2.5 ML VIAL INH SCH ×4 (01:58→19:22)
[2017-08-09] MEDS: LEVALBUTEROL 1.25MG/0.5ML NEB INH SCH ×4 (01:58→19:22)
[2017-08-09] MEDS: OXYCODONE/ACETAMINOPHEN 10/325MG TAB PO SCH ×4 (02:00→20:35)
[2017-08-09 06:48] LABS: INR 3.2 (0.9-1.1)
[2017-08-09] MEDS: INSULIN ASPART 100 UNITS/ML 3 ML PEN SC SCH ×2 (08:07→12:38)
[2017-08-09] MEDS: CEROVITE ADV FORMULA TAB PO SCH (08:22)
[2017-08-09] MEDS: CHOLECALCIFEROL 400 INTER.UNIT TAB PO SCH (08:22)
[2017-08-09] MEDS: CYANOCOBALAMIN 500 MCG TAB (VIT B-12) PO SCH (08:22)
[2017-08-09] MEDS: TORSEMIDE 20 MG TAB PO SCH (08:23)
[2017-08-09] MEDS: FoLIC ACID TAB 400 MCG TAB PO SCH (08:23)
[2017-08-09] MEDS: ATORVASTATIN 40 MG TAB PO SCH (08:23)
[2017-08-09] MEDS: GABAPENTIN 100 MG CAP PO SCH (08:23)
[2017-08-09] MEDS: OMEGA-3 (PURIFIED FISH OIL) 1 GM CAP PO SCH (08:26)
[2017-08-09] MEDS: METOPROLOL SUCC 25MG EXT REL TAB PO SCH (08:27)
[2017-08-09] MEDS: ASPIRIN 81 MG ECTAB PO SCH (08:33)
[2017-08-09] MEDS ORDERED: MoRPHine SULFATE 5 MG/0.25 ML UDP PO PRN (13:00)
--- NOTE | 2017-08-09 13:07 | Progress Note ---
Internal Med Progress Note Date of Service: Aug 09, 2017. 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 Patient's and daughter prefers comfort measures only OBJECTIVE: Vital Signs-as noted below Physical Exam: General Appearance:Moderately built and nourished, no apparent distress Head: normocephalic, Atraumatic Eyes: normal inspection, EOMI, PERRL Neck: supple, Trachea midline Respiratory/Chest: Decreased breath sounds, CTA Cardiovascular: S1, S2, No murmur Abdomen/GI:Soft, Non tender, Bowel sounds present Extremities/Musculoskelatal:normal inspection, B/L LE edema Neurologic/Psych:grossly no focal neurological deficits Skin: normal color, warm Lab data as noted below. ASSESSMENT & PLAN: Patient is an 86 yr male initially admitted to ICU for management of acute posterolateral wall myocardial infarction with severe LV/RV dysfunction with Severe mixed valvular heart disease with Chronic cor pulmonale due to severe pulmonary hypertension S/P posterolateral wall myocardial infarction, severe LV, RV systolic dysfunction Severe valvular heart disease Chronic cor pulmonale due to severe pulmonary hypertension. H/O of multiple PE Poor Candidate for Invasive therapy Troponin trended down EF: <15% on 08/04/17 Was on coumadin INR:3.2 Appreciate Cardiology Input Comfort measures only and family agreeable with current management Palliative care consulted Continue diuretics per family's request Will DC Coumadin, Aspirin, Lipitor, BB, Gabapentin Cardiogenic shock: Secondary to above Weaned off IV Norepinephrine CXR:Cardiomegaly with worsening pulmonary edema and small pleural effusions Discontinued Abx. 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 No convincing evidence of an acute injury. Continue home medications: Valacyclovir, Fentanyl, Percocet PRN Code Status: DNR/DNI Family contact: [phone] Disposition: Prognosis is poor Palliative Care consulted Vital Signs: Date Time Temp Pulse Resp B/P (MAP) Pulse Ox O2 Delivery O2 Flow Rate FiO2 08/09/17 12:00 Nasal Cannula 4.0 08/09/17 11:10 36.9 91 20 93/53 (66) 97 Nasal Cannula 4.0 88/53 (65) 08/09/17 08:00 Nasal Cannula 4.0 08/09/17 07:05 96 20 95 Nasal Cannula 4.0 08/09/17 07:02 36.7 95 20 107/62 (77) 93 Nasal Cannula 4.0 08/09/17 04:09 37.0 93 16 99/63 (75) 94 Nasal Cannula 08/09/17 04:02 Nasal Cannula 4.0 08/09/17 01:58 87 22 91 Nasal Cannula 4.0 08/09/17 00:02 Nasal Cannula 4.0 08/08/17 23:50 36.5 87 20 101/59 (73) 100 BiPAP 08/08/17 22:16 86 99 60 08/08/17 20:25 74 24 93 Nasal Cannula 4.0 08/08/17 20:08 36.7 99 20 113/79 (90) 97 Nasal Cannula 4.0 08/08/17 20:00 Nasal Cannula 4.0 08/08/17 16:19 36.6 86 20 102/63 (76) 91 Nasal Cannula 2.0 08/08/17 16:00 BiPAP 08/08/17 15:13 85 24 92 Nasal Cannula 4.0 Lab Results: Results Past 24 Hours Test 08/08/17 16:15 08/08/17 20:05 08/09/17 05:43 08/09/17 07:05 Range/Units Bedside Glucose 156 155 96 70-99 mg/dl Prothrombin Time 33.3 9.0-12.0 SECONDS Prothromb Time International Ratio 3.2 0.9-1.1 Test 08/09/17 11:13 Range/Units Bedside Glucose 182 70-99 mg/dl
--- NOTE | 2017-08-09 15:00 | Palliative Care Progress Note ---
Palliative Care Progress Note Date of Service Aug 09, 2017. Subjective Pt evaluation today including: conversation w/ family (, Sandrita, and patient's daughter), physical exam, chart review, conversation w/ review consultant ( Dr. Meyer) Pain: no s/s of pain at this time Voiding: sutton catheter in place -Patient declined over the weekend with cardiogenic shock and pneumonia. He is requiring mask for oxygen. -Patient's family had extensive discussion with hospitalist today. They decided to place patient on "comfort measures only". Palliative is reconsulted as the family would like to discuss taking patient home with hospice. -Patient is resting comfortably at this time, family requests to please not wake him. Review of Systems unable to obtain due to patient condition and family request to not wake patient. Objective Vital Signs Date Time Temp Pulse Resp B/P (MAP) Pulse Ox O2 Delivery O2 Flow Rate FiO2 08/09/17 13:53 84 20 95 Nasal Cannula 4.0 08/09/17 12:00 Nasal Cannula 4.0 08/09/17 11:10 36.9 91 20 93/53 (66) 97 Nasal Cannula 4.0 88/53 (65) 08/09/17 08:00 Nasal Cannula 4.0 08/09/17 07:05 96 20 95 Nasal Cannula 4.0 08/09/17 07:02 36.7 95 20 107/62 (77) 93 Nasal Cannula 4.0 08/09/17 04:09 37.0 93 16 99/63 (75) 94 Nasal Cannula 08/09/17 04:02 Nasal Cannula 4.0 08/09/17 01:58 87 22 91 Nasal Cannula 4.0 08/09/17 00:02 Nasal Cannula 4.0 08/08/17 23:50 36.5 87 20 101/59 (73) 100 BiPAP 08/08/17 22:16 86 99 60 08/08/17 20:25 74 24 93 Nasal Cannula 4.0 08/08/17 20:08 36.7 99 20 113/79 (90) 97 Nasal Cannula 4.0 08/08/17 20:00 Nasal Cannula 4.0 08/08/17 16:19 36.6 86 20 102/63 (76) 91 Nasal Cannula 2.0 08/08/17 16:00 BiPAP 08/08/17 15:13 85 24 92 Nasal Cannula 4.0 Physical Exam General Appearance: no apparent distress, + pertinent finding (chronically ill appearing) Neck: no JVD Respiratory/Chest: no respiratory distress, no accessory muscle use, + pertinent finding (Oxymask) Cardiovascular: regular rate, rhythm, + pertinent finding (+1-2 pittinge monica to bilateral lower extremities) Abdomen: normal bowel sounds, non tender, soft Neurologic/Psychiatric: alert, normal mood/affect, oriented x 3 Skin: + pallor Assessment and Plan Problem list: Altered mental status Right arm/shoulder pain, chronic Acute inferior wall SD Severe mixed valvular heart disease CHF Severe pulmonary hypertension Hx CLL, hemolytic anemia, and CKD Goals of care (Z51.5) Palliative care recs: discussed with patient's , daughter, and Dr. Meyer. Dr. Donis present with me. -Comfort measures only. -Level 5/DNR/DNI. -Goal is for home with hospice at this time. Previous POLST form should be voided. -energy manager present during my conversation with patient's family- she will make referral to [facility] per family's request. -Continue Roxanol 10mg PO PRN, would increase to Q2-3h PRN pain or SOB. -Continue Fentanyl patch 25mcg/hr TD Q72h. -Patient will need home Oxygen. -Would leave Sutton catheter in for home for ease of care. Thank you kindly for this consult. I will follow as needed. Palliative Performance Scale: 10 % Discharge planning: home with Hospice
[2017-08-09] MEDS ORDERED: WARFARIN TAB 1 MG, WARFARIN TAB 0.5 MG PO SCH (16:00)
[2017-08-10] MEDS: CHECK FENTANYL PATCH PLACEMENT SCH ×2 (00:22→07:54)
[2017-08-10] MEDS: OXYCODONE/ACETAMINOPHEN 10/325MG TAB PO SCH ×2 (02:16→08:00)
[2017-08-10 03:25] VITALS: PULSE 81; O2SAT 94
[2017-08-10] MEDS: LEVALBUTEROL 1.25MG/0.5ML NEB INH SCH ×3 (03:25→14:39)
[2017-08-10] MEDS: IPRATROPIUM BROMIDE NEB SOLN 0.02% 2.5 ML VIAL INH SCH ×3 (03:25→14:39)
[2017-08-10 08:11] VITALS: PULSE 78; O2SAT 95
[2017-08-10] MEDS: TORSEMIDE 20 MG TAB PO SCH (08:57)
[2017-08-10] MEDS ORDERED: NURSING VERBAL MED ORDER ONE (10:30)
[2017-08-10] MEDS ORDERED: MoRPHine SULFATE 5 MG/0.25 ML UDP PO ONE (10:30)
--- NOTE | 2017-08-10 10:45 | Progress Note ---
Internal Med Progress Note Date of Service: Aug 10, 2017. 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 Patient's and daughter prefers comfort measures only No new symptoms Patient's prefers patient to be continued on warfarin OBJECTIVE: Vital Signs-as noted below Physical Exam: General Appearance:Moderately built and nourished, no apparent distress Head: normocephalic, Atraumatic Eyes: normal inspection, EOMI, PERRL Neck: supple, Trachea midline Respiratory/Chest: Decreased breath sounds, CTA Cardiovascular: S1, S2, No murmur Abdomen/GI:Soft, Non tender, Bowel sounds present Extremities/Musculoskelatal:normal inspection, B/L LE edema Neurologic/Psych:grossly no focal neurological deficits Skin: normal color, warm Lab data as noted below. ASSESSMENT & PLAN: Patient is an 86 yr male initially admitted to ICU for management of acute posterolateral wall myocardial infarction with severe LV/RV dysfunction with Severe mixed valvular heart disease with Chronic cor pulmonale due to severe pulmonary hypertension S/P posterolateral wall myocardial infarction, severe LV, RV systolic dysfunction Severe valvular heart disease Chronic cor pulmonale due to severe pulmonary hypertension. H/O of multiple PE Poor Candidate for Invasive therapy Troponin trended down EF: <15% on 08/04/17 Was on coumadin INR:3.2 Appreciate Cardiology Input Comfort measures only and family agreeable with current management Palliative care consulted Continue diuretics per family's request Will DC Aspirin, Lipitor, BB, Gabapentin Will continue warfarin as per patient's and his wishes Cardiogenic shock: Secondary to above Weaned off IV Norepinephrine CXR:Cardiomegaly with worsening pulmonary edema and small pleural effusions Discontinued Abx. 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 No convincing evidence of an acute injury. Continue home medications: Valacyclovir, Fentanyl, Percocet PRN Code Status: DNR/DNI Family contact: [phone] Disposition: Prognosis is poor Palliative Care consulted Plan to discharge home with Hospice in Place Follow up with on 08/12/17 at 10:55am Get PT/INR checked on 08/11/17 and follow up with your doctor for further Coumadin dosage Vital Signs: Date Time Temp Pulse Resp B/P (MAP) Pulse Ox O2 Delivery O2 Flow Rate FiO2 08/10/17 08:11 78 22 95 Nasal Cannula 4.0 08/10/17 03:25 81 22 94 Nasal Cannula 4.0 08/10/17 00:00 Nasal Cannula 4.0 08/09/17 20:00 Nasal Cannula 2.0 08/09/17 19:24 80 20 95 Nasal Cannula 4.0 08/09/17 16:21 Nasal Cannula 4.0 08/09/17 13:53 84 20 95 Nasal Cannula 4.0 08/09/17 12:00 Nasal Cannula 4.0 08/09/17 11:10 36.9 91 20 93/53 (66) 97 Nasal Cannula 4.0 88/53 (65) Lab Results: Results Past 24 Hours Test 08/09/17 11:13 Range/Units Bedside Glucose 182 70-99 mg/dl
[2017-08-10] MEDS ORDERED: TORS20TA2 PO (10:52)
[2017-08-10] MEDS ORDERED: RXNS10 PO (10:52)
--- NOTE | 2017-08-10 10:56 | Discharge Instructions ---
Discharge Instructions Date of Service Aug 10, 2017. Admission Reason for Admission: ACS Discharge Discharge Diagnosis / Problem: Acute CA, Cardiogenic Shock Discharge Goals Goal(s): Decrease discomfort, Improve function Activity Recommendations Activity Limitations: per Instructions/Follow-up section Lifting Limitations: gradually increase as tolerated Exercise/Sports Limitations: gradually increase as tolerated . Instructions / Follow-Up Instructions / Follow-Up Follow up with hospice services as advised Get PT/INR checked on 08/11/17 and follow up with your doctor for further Coumadin dosage Current Hospital Diet Patient's current hospital diet: AHA Diet (Heart Healthy), Low Sodium Diet (2gm Na), Diabetes Type 2 Diet Discharge Diet Recommended Diet: AHA Diet (Heart Healthy), Diabetes Type 2 Diet Pending Studies Studies pending at discharge: no Laboratory Results Hemoglobin A1c Test 08/08/17 06:26 Range/Units Estimated Average Glucose 117 mg/dl Hemoglobin A1c 5.7 H 4.5-5.6 % Medical Emergencies . Who to Call and When: Medical Emergencies: If at any time you feel your situation is an emergency, please call 911 immediately. . Non-Emergent Contact Non-Emergency issues call your: Primary Care Provider Call Non-Emergent contact if: you have a fever, your pain is not controlled, your pain is worsening, your pain is unusual for you, your pain is concerning you, you have any medication questions . . "Provider Documentation" section prepared by Armando Meyer. . VTE Core Measure Inpt VTE Proph given/why not?: Warfarin (Coumadin)
--- NOTE | 2017-08-10 10:58 | Discharge Summary ---
Discharge Summary Date of Service Aug 10, 2017. Discharge Summary Admission Date: Aug 03, 2017 at 15:34 Discharge Date: Aug 10, 2017 Discharge Disposition: Principal Diagnosis: Acute PA, Cardiogenic Shock Consultations: Cardiology, Critical care, Palliative care Admission Information HPI (per Admitting provider): 86 year old male who presents to the ED with chest pain and altered mental status. History is currently limited from patient so history is obtained from who is at the bedside. She reports that she has noticed a steady decline in her over the past couple of weeks. He has been more confused and more lethargic. Patient was seen in the PCPs office yesterday for evaluation of fever and confusion. It was suspected he had the flu so he was started on Tamiflu. His reports today that the lethargy was much worse and that he was also complaining of chest pain. No other symptoms are reported. 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 In the ED, patient's EKG is concerning for acute anterolateral PA. Patient was evaluated at the bedside by interventional cardiology who felt as though patient would not be a good candidate for a cardiac cath given his co-morbid conditions. Patient will be admitted to ICU for further management. Physical Exam (per Admitting): General Appearance: WD/WN, + mild distress Head: normocephalic, atraumatic Eyes: normal inspection, EOMI, sclerae normal ENT: + pertinent finding ([place], mucous membranes dry) Neck: supple, no JVD, trachea midline Respiratory/Chest: no respiratory distress, + decreased breath sounds Cardiovascular: normal peripheral pulses, + irregularly irregular, + pertinent finding (+2 edema BLLE) Abdomen/GI: normal bowel sounds, non tender, soft, no organomegaly Extremities/Musculoskelatal: normal inspection, no calf tenderness Neurologic/Psych: no motor/sensory deficits, + disoriented (to time; forgetgul, poor insight), + pertinent finding (arouses to verbal stimuli however falls back to sleep quickly ) Skin: normal color, warm/dry Hospital Course Patient is an 86 yr male initially admitted to ICU for management of acute posterolateral wall myocardial infarction with severe LV/RV dysfunction with Severe mixed valvular heart disease with Chronic cor pulmonale due to severe pulmonary hypertension S/P posterolateral wall myocardial infarction, severe LV, RV systolic dysfunction Severe valvular heart disease Chronic cor pulmonale due to severe pulmonary hypertension. H/O of multiple PE Poor Candidate for Invasive therapy Troponin trended down EF: <15% on 08/04/17 Was on coumadin INR:3.2 Appreciate Cardiology Input Comfort measures only and family agreeable with current management Palliative care consulted Continue diuretics per family's request Will DC Aspirin, Lipitor, BB, Gabapentin Will continue warfarin as per patient's and his wishes Cardiogenic shock: Secondary to above Weaned off IV Norepinephrine CXR:Cardiomegaly with worsening pulmonary edema and small pleural effusions Discontinued Abx. 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 No convincing evidence of an acute injury. Continue home medications: Valacyclovir, Fentanyl, Percocet PRN Code Status: DNR/DNI Family contact: [phone] Disposition: Prognosis is poor Palliative Care consulted Plan to discharge home with Hospice in Place Follow up with on 08/12/17 at 10:55am Get PT/INR checked on 08/11/17 and follow up with your doctor for further Coumadin dosage Patient at 11:23am prior to being discharged home Total time spent on discharge = This includes examination of the patient, discharge planning, medication reconciliation, and communication with other providers. Discharge Instructions Patient
[2017-08-10] MEDS ORDERED: FENTANYL 25 MCG/HR TDSY TD SCH (13:00)
--- NOTE | 2017-08-10 14:53 | Palliative Care Progress Note ---
Palliative Care Progress Note Date of Service Aug 10, 2017. Subjective Met with patient's this morning. Redid POLST form to reflect comfort measures only. Plan was for patient to go home with hospice today. However, patient this morning shortly after I left the room. I returned to the room to talk with patient's and provide support. is quite appreciative of the care patient has received and denied any further needs/ concerns. Her two daughters are on their way to the hospital. Please contact me with any further palliative care needs. Thank you.
--- NOTE | 2017-08-11 11:26 | EDITING REQUIRED CODING QUERY ---
SEPSIS To promote full compliance with coding requirements relating to patient care, physician participation is requested in all cases of farm [employer] uncertainty. Please assist us with the question(s) below: In responding to this query, please exercise your independent professional judgment. The fact that a question is asked does not imply that any particular answer is desired or expected. We appreciate your clarification on this issue. Coding Question: The following was documented throughout the record, please clarify below to the best of your knowledge. Thank you so much for your help! Have a great day! Cardiogenic shock vs Septic Shock, Possible Pneumonia induced Sepsis, Blood culture negative from 08/03/17 () Sepsis () Present on Admission () Not present on admission () Unable to clinically determine () Severe Sepsis () Present on Admission () Not present on admission () Unable to clinically determine () Septic Shock () Present on Admission () Not present on admission () Unable to clinically determine (X) Sepsis, ruled out () Other, patient has:
== END 2017-08-10 16:45 | disposition expired ==
LOC: C.EDB 13:13 → C.MSICU 15:34 → CANRESERV 15:39 → ENRESERV 15:39 → C.2T 08-05 17:08 → ENRESERV 08-09 13:32 → C.4E 08-09 15:22
PROVIDERS: ADMIT Internal Medicine; ATTEND Internal Medicine
PROC: 05HM33Z Insertion of Infusion Device into Right Internal Jugular Vein, Percutaneous Approach (ICD-10-PCS; principal; 2017-08-04)
PROC: 03HC33Z Insertion of Infusion Device into Left Radial Artery, Percutaneous Approach (ICD-10-PCS; principal; 2017-08-04)
DX: I21.19 ST elevation (STEMI) myocardial infarction involving other coronary artery of inferior wall (principal); N17.9 Acute kidney failure, unspecified; D58.9 Hereditary hemolytic anemia, unspecified; C91.10 Chronic lymphocytic leukemia of B-cell type not having achieved remission; Z51.5 Encounter for palliative care; R57.0 Cardiogenic shock; I27.81 Cor pulmonale (chronic); N18.3 Chronic kidney disease, stage 3 (moderate); I48.91 Unspecified atrial fibrillation; F03.90 Unspecified dementia, unspecified severity, without behavioral disturbance, psychotic disturbance, mood disturbance, and anxiety; G89.4 Chronic pain syndrome; M79.601 Pain in right arm; Z79.01 Long term (current) use of anticoagulants; Z79.52 Long term (current) use of systemic steroids; Z79.899 Other long term (current) drug therapy; Z86.711 Personal history of pulmonary embolism; Z86.718 Personal history of other venous thrombosis and embolism; Z87.891 Personal history of nicotine dependence